=== PATIENT | male | born 1965 | race Caucasian/White ===

== ENCOUNTER 2025-06-17 06:00 | Inpatient (IN) | payer MEDICAID, OTHER ==
[~2025-06-17] VITALS: Ht 177.8 cm; Wt 76.6 kg
--- NOTE | 2025-06-17 06:13 | ED.PDOC ---
SOB-HPI HPI Comments 59 year old male PMHx CHF, HTN, HLD, gallstones, Hepatitis C, kidney disease, presents to the ED via EMS with a chief compliant of shortness of breath onset today (06/17/25) around 04:00. Per EMS, patient was laying down, noticed shortness of breath was worsening called 911, upon EMS arrival O2 sat was 87% on RA, placed on 6L O2 sat improved to 98%, on 2L home O2. Patient states he noticed shortness of breath worsened with laying down, is also experiencing abdominal pain, periumbilical region, as well as nausea, currently rates pain 3/10. Was discharged from [facility] on 06/13/25, was diagnosed with gallstones. Denies fever, chills, vomiting, diarrhea, headache, dizziness, chest pain, blurred vision, numbness/tingling. No other symptoms or modifying factors present at this time. Time Seen by MD: 06:05 Reviewed notes: Medications, Allergies Information Source: Patient, Emergency Med Personnel Mode of Arrival: EMS Severity: Moderate Timing: Hours Duration: Since onset Context: At Rest PE Risk Factors: None History of: CHF Prehospital treatment: 12 Lead EKG Modifying Factors: Nothing Past Medical History PAST MEDICAL HISTORY: CHF, CKF, Gallstones, High Lipids, HTN Past Medical History (Other): Hep C Surgical History (Other): RT knee surgery Family History Family History: Family hx of heart jenelle Social History Smoker: Non-Smoker Alcohol: Denies ETOH Use Drugs: Marijuana Lives In: Home Constitutional: denies: chills, diaphoresis, fatigue, fever, malaise, sweats, weakness, others EENTM: denies: blurred vision, double vision, ear bleeding, ear discharge, ear drainage, ear pain, ear ringing, eye pain, eye redness, hearing loss, mouth pain, mouth swelling, nasal discharge, nose bleeding, nose congestion, nose p ain, photophobia, tearing, throat pain, throat swelling, voice changes, others Respiratory: reports: shortness of breath; denies: cough, hemoptysis, orthopnea, SOB at rest, SOB with excertion, stridor, wheezing, others Cardiovascular: denies: chest pain, dizzy spells, diaphoresis, Dyspnea on exertion, edema, irregular heart beat, left arm pain, lightheadedness, palpitations, PND, syncope, others Gastrointestinal: reports: abdominal pain, nausea; denies: abdomen distended, blood streaked bowels, constipated, diarrhea, dysphagia, difficulty swallowing, hematemesis, melena, poor appetite, poor fluid intake, rectal bleeding, rectal pain, vomiting, others Genitourinary: denies: burning, dysuria, flank pain, frequency, hematuria, incontinence, penile discharge, penile sore, pain, testicle pain, testicle swelling, urgency, others Neurological: denies: dizziness, fainting, headache, left sided numbness, left sided weakness, numbness, paresthesia, pre-existing deficit, right sided numbness, right sided weakness, seizure, speech problems, tingling, tremors, weakness, others Musculoskeletal: denies: back pain, gout, joint pain, joint swelling, muscle pain, muscle stiffness, neck pain, others Integumetry: denies: bruises, change in color, change in hair/nails, dryness, laceration, lesions, lumps, rash, wounds, others Allergic/Immunocompromised: denies: Difficulty Healing, Frequent Infections, Hives, Itching, others Hematologic/Lymphatic: denies: anemia, blood clots, easy bleeding, easy bruising, swollen glands, others Endocrine: denies: excessive hunger, excessive sweating, excessive thirst, excessive urination, flushing, intolerance to cold, intolerance to heat, unexplained weight gain, unexplained weight loss, others Psychiatric: denies: anxiety, bipolar disorder, depression, hopeless, panic disorder, schizophrenia, sleepless, suicidal, others All Other Systems: Reviewed and Negative Physical Exam General Appearance: Moderate Distress HEENT: Normal ENT Inspection, Pharynx Normal, TMs Normal Neck: Full Range of Motion, Non-Tender, Normal, Normal Inspection Respiratory: Decreased Breath Sounds, Rales, Respiratory Distress Cardiovascular: No Edema, No JVD, No Murmur, No Gallop, Normal Peripheral Pulses, Regular Rate/Rhythm Breast Exam: Deferred Gastrointestinal: No Organomegaly, Non Tender, No Pulsatile Mass, Normal Bowel Sounds, Soft Genitalia: Deferred Pelvic: Deferred Rectal: Deferred Extremities: No calf tenderness, Normal capillary refill, Normal inspection, Normal range of motion, Non-tender, No pedal edema Musculoskeletal : Apperance: Normal Neurologic: Alert, assistant attorney general II-XII nml as Tested, Motor Weakness, Normal Affect, Normal Mood, No Sensory Deficits Cerebellar Function: Normal Reflexes: Normal Skin: Dry, Normal Color, Warm Lymphatic: No Adenopathy EKG EKG : Pulse Rate (adult): 88 [place]: Normal Block: None Hypertrophy: LAE Was a procedure done? Was a procedure done?: No Differential Dx Differential Diagnosis: Asthma, Bronchitis, CHF, COPD, Pneumonia X-Ray, Labs, Meds, VS Vital Signs Date Time Temp Pulse Resp B/P (MAP) Pulse Ox O2 Delivery O2 Flow Rate FiO2 06/17/25 07:09 80 06/17/25 06:40 86 16 94 Nasal Cannula* 2 28 06/17/25 06:38 97.8 86 16 102/76 (85) 94 97.8 06/17/25 06:18 88 06/17/25 06:13 88 06/17/25 06:00 94.3 98 24 108/81 98 94.3 Lab Test 06/17/25 07:26 06/17/25 06:26 Range/Units Troponin I High Sensitivity Pending 507 *H </=54 ng/L White Blood Count 8.1 4.4-10.8 10^3/uL Red Blood Count 5.77 4.5-5.90 10^6/uL Hemoglobin 15.4 13.5-17.5 g/dL Hematocrit 47.4 41.0-53.0 % Mean Corpuscular Volume 82.2 80.0-100.0 fL Mean Corpuscular Hemoglobin 26.8 L 28.0-32.0 pg Mean Corpuscular Hemoglobin Concent 32.6 32.0-36.0 g/dL Red Cell Distribution Width 17.9 H 11.8-14.3 % Platelet Count 169 140-450 10^3/uL Mean Platelet Volume 8.1 6.9-10.8 fL Neutrophils (%) (Auto) 64.3 37.0-80.0 % Lymphocytes (%) (Auto) 23.4 10.0-50.0 % Monocytes (%) (Auto) 9.9 0.0-12.0 % Eosinophils (%) (Auto) 1.2 0.0-7.0 % Basophils (%) (Auto) 1.2 0.0-2.0 % Neutrophils # (Auto) 5.2 1.6-8.6 10 ^3/uL Lymphocytes # (Auto) 1.9 0.4-5.4 10 ^3/uL Monocytes # (Auto) 0.8 0-1.3 10 ^3/uL Eosinophils # (Auto) 0.1 0-0.8 10 ^3/uL Basophils # (Auto) 0.1 0-0.2 10 ^3/uL Nucleated Red Blood Cells 0.2 % Sodium Level 138 136-145 mmol/L Potassium Level 4.1 3.5-5.1 mmol/L Chloride Level 103 98-107 mmol/L Carbon Dioxide Level 22 20-31 mmol/L Anion Gap 13 5-15 Blood Urea Nitrogen 33 H 9-23 mg/dL Creatinine 1.93 H 0.700-1.30 mg/dL Glomerular Filtration Rate Calc 39 >90 mL/min BUN/Creatinine Ratio 17.1 10.0-20.0 Serum Glucose 106 74-106 mg/dL Calcium Level 8.7 8.7-10.4 mg/dL B-Type Natriuretic Peptide 2736.29 0-100 pg/mL IV Hep-Lock was established The patient's CBC is within normal limits. The chest x-ray is interpreted by myself shows cardiomegaly with some cephalization an infiltrates consistent with acute on chronic diastolic heart failure. The BNP came back at 2736.29. This elevated BNP is consistent with the patient's CHF. The troponin level came back at 507. We did review the 2nd EKG which had no changes and there were no signs of any ST-elevation consistent with a myocardial infarction. We feel that this troponin level is secondary to the acute on chronic diastolic heart failure. A cardiology consult will also be obtained. The patient was given Lasix 40 mg IV push based on the patient's chest x-ray findings. The patient's blood pressure remains normotensive. The patient will be continued on the oxygen nasal cannula. Our plan is to admit this patient to the telemetry bed FINDINGS: Cardiomegaly . Left paemaker . The heart and mediastinal contours are grossly unremarkable. There is no evidence of pleural disease. The lungs are clear. The bony structures of the chest are intact without fracture. IMPRESSION: 1. Cardiomegaly with CHF. The patient was given Lovenox 30 mg IV push. The chemistry panel is within normal limits except the BUN is 33 and the creatinine is 1.93 We are consulting with Dr. Oglesby who on this patient The patient is going to be admitted at this time. The patient's cardiac scale is greater than seven which is also consistent with our decision to admit this patient. Critical care time was justified because of consultation with the specialist, interpretation of labs and decision-making, bedside management of this patient Images Reviewed?: Images reviewed and evaluated by me Time of 1ST Reevaluation: 06:35 Reevaluation 1ST: Unchanged Patient Education/Counseling: Diagnosis, Treatment, Prognosis Family Education/Counseling: No Family Present SEPSIS Sepsis Screen Physician Orders Urinalysis (06/17/25 06:07) Chest Portable (06/17/25 06:07) Heplock Iv (06/17/25 06:07) Pulse Oximetry (06/17/25 06:07) Oxygen (06/17/25 06:07) Transportation Project Manager (06/17/25 06:07) Blood Pressure (06/17/25 06:07) Troponin-I Hs (06/17/25 07:07) Troponin-I Hs (06/17/25 09:07) Electrocardigram (06/17/25 09:07) * Cardiology Consult (06/17/25 07:30) Enoxaparin Sodium (Lovenox) (06/17/25 07:45) Vital Signs Date Time Temp Pulse Resp B/P (MAP) Pulse Ox O2 Delivery O2 Flow Rate FiO2 06/17/25 07:09 80 06/17/25 06:40 86 16 94 Nasal Cannula* 2 28 06/17/25 06:38 97.8 86 16 102/76 (85) 94 97.8 06/17/25 06:18 88 06/17/25 06:13 88 06/17/25 06:00 94.3 98 24 108/81 98 94.3 Laboratory Tests Test 06/17/25 06:26 White Blood Count 8.1 10^3/uL (4.4-10.8) Departure 1 Departure Time of Disposition: 07:44 Impression: Primary Impression: Acute on chronic diastolic heart failure Additional Impressions: CKD (chronic kidney disease) Qualified Codes: N18.9 - Chronic kidney disease, unspecified Elevated troponin Disposition: ADMITTED INPATIENT Admit to: Tele Condition: Fair Critical Care Note Critical Care Time?: Yes (55 min-critical care time only) Stability Stability form required: Yes Unstable for transfer: Telemetry monitoring (Telemetry monitoring required), ED Physician Assesment (Clinical assesment) Heart Score Heart Score: Heart Score Response (Comments) Value History Moderate Suspicious 1 EKG Repolarization Disturb 1 Age 45-64 1 Risk Factors >3 or Hx ASHD 2 Troponin >3 x's Normal limit 2 Total 7 I personally scribed for JOSIAS ALONZO MD ([email or web address]) on 06/17/25 at 06:13. Electronically submitted by Amparo Chung ([email or web address]). I personally scribed for JOSIAS ALONZO MD ([email or web address]) on 06/17/25 at 06:18. Electronically submitted by Amparo Chung ([email or web address]). I personally scribed for JOSIAS ALONZO MD ([email or web address]) on 06/17/25 at 07:34. Electronically submitted by Amparo Chung ([email or web address]). JOSIAS ALONZO MD Jun 17, 2025 06:13
--- NOTE | 2025-06-17 06:15 | ECG ---
[facility] Test Date: 2025-06-17 Test Time: 06:13:31 Pat Name: AARON GARZA Department: [facility] ED Patient ID: [id number] Room: [address] [place] [address] Gender: M Antenna Rigger: KRAIG : 1965 Requested By: JOSIAS ALONZO Order Number: [id number] Reading MD: Tristen Puckett Measurements Intervals [place] Rate: 88 P: 57 [place]: 212 QRS: -53 QRSD: 148 T: 119 QT: 418 QTc: 506 Interpretive Statements Sinus rhythm Atrial premature complexes in couplets Prolonged [place] interval Probable left atrial enlargement Left bundle branch block Electronically Signed On 06-22-2025 20:24:47 PDT by Tristen Puckett Please click the below link to view image of tracing.
[2025-06-17 06:40] VITALS: PULSE 86; RESP 16; O2SAT 94
[2025-06-17 06:43] LABS: Hematocrit 47.4 % (41.0-53.0); Hemoglobin 15.4 g/dL (13.5-17.5); Mean Corpuscular Hemoglobin 26.8 pg (28.0-32.0); Mean Corpuscular Volume 82.2 fL (80.0-100.0); Nucleated Red Blood Cells % 0.2 %
--- NOTE | 2025-06-17 07:11 | ECG ---
[facility] Test Date: 2025-06-17 Test Time: 07:09:28 Pat Name: AARON GARZA Department: [facility] ED Patient ID: [id number] Room: [address] [place] [address] Gender: M Java Analyst: VINICIUS : 1965 Requested By: JOSIAS ALONZO Order Number: [id number] Reading MD: Tristen Puckett Measurements Intervals [place] Rate: 80 P: 58 CA: 231 QRS: -51 QRSD: 148 T: 117 QT: 430 QTc: 497 Interpretive Statements Sinus rhythm Ventricular premature complex Prolonged [place] interval Probable left atrial enlargement Left bundle branch block Electronically Signed On 06-22-2025 20:24:48 PDT by Tristen Puckett Please click the below link to view image of tracing.
[2025-06-17 07:31] LABS: Chloride 103 mmol/L (98-107); Potassium 4.1 mmol/L (3.5-5.1); Sodium 138 mmol/L (136-145)
[2025-06-17 07:32] LABS: Anion Gap 13 (5-15); Carbon Dioxide 22 mmol/L (20-31)
--- NOTE | 2025-06-17 07:32 | DVH ---
INDICATION: sob TECHNIQUE: Frontal view of the chest. COMPARISON: None FINDINGS: Cardiomegaly . Left paemaker . The heart and mediastinal contours are grossly unremarkable. There is no evidence of pleural disease. The lungs are clear. The bony structures of the chest are intact without fracture. IMPRESSION: 1. Cardiomegaly with CHF.
[2025-06-17 07:35] LABS: Calcium 8.7 mg/dL (8.7-10.4)
[2025-06-17 07:37] LABS: BUN/Creatinine Ratio 17.1 (10.0-20.0)
[2025-06-17 07:40] VITALS: PULSE 96; RESP 19; O2SAT 98
[2025-06-17 07:40] LABS: Blood Urea Nitrogen 33 mg/dL (9-23); Glucose 106 mg/dL (74-106)
[2025-06-17] MEDS: FUROSEMIDE 40 MG/4 ML VIAL IV ONE (09:25)
[2025-06-17] MEDS ORDERED: NITROGLYCERIN 0.4 MG SL TAB SL PRN (09:30)
[2025-06-17] MEDS ORDERED: EMPA1TAB PO (09:36)
[2025-06-17] MEDS ORDERED: ATOR10TA PO (09:36)
[2025-06-17] MEDS ORDERED: LISI2.5T47 PO (09:36)
[2025-06-17] MEDS ORDERED: SENN-105 PO (09:36)
[2025-06-17] MEDS ORDERED: FURO20TA4 PO (09:36)
[2025-06-17] MEDS ORDERED: ASPI-628 PO (09:36)
[2025-06-17] MEDS ORDERED: CARV-214 OR (09:36)
[2025-06-17] MEDS: ENOXAPARIN SOD 30 MG/0.3 ML SYRINGE IV ONE (09:47)
[2025-06-17] MEDS: CARVEDILOL 3.125 MG TAB PO SCH (10:00)
[2025-06-17] MEDS: SENNA 8.6 MG TAB PO SCH (10:00)
[2025-06-17] MEDS ORDERED: LISINOPRIL 5 MG TAB PO SCH (10:00)
[2025-06-17] MEDS: EMPAGLIFLOZIN 10 MG TAB PO SCH (10:00)
[2025-06-17] MEDS: ASPirin-EC 81 mg tab PO SCH (10:00)
[2025-06-17] MEDS ORDERED: MORPHINE SULFATE 4 MG/ML SYR/VIAL IV PRN (10:00)
--- NOTE | 2025-06-17 10:24 | DVHHP2 ---
History of Present Illness Reason for Visit: Shortness of breath and abdominal pain History of Present Illness Salvador You is a 59-year-old male with past medical history of CHF, hypertension, hyperlipidemia, Hep C, and mitral clip & AICD in December 2024, who came to the hospital for shortness of breath and abdominal pain. Patient states his abdominal pain is in his epigastric region, and that he was recently discharged from [place] and told he has gallstones. He states the shortness of breath came on suddenly early this morning prompting him to call EMS. Cardiovascular: CHF, HTN, hyperipidemia, Other (Mitral clip and AICD December 2024) Hepatobiliary: Hep A/B/C (Hep C) Past Surgical History: Other (right knee, Mitral clip and AICD December 2024) Smoke: No ALCOHOL: none Drugs: None Lives: with Family Domestic Violence: Neg Review of Systems Constitutional: No: Fever, Chills, Sweats, Weakness, Malaise, Other Eyes: No: Pain, Vision change, Conjunctivae inflammation, Eyelid inflammation, Other, Redness ENT: No: Ear pain, Ear discharge, Nose pain, Nose discharge, Nose congestion, Mouth pain, Mouth swelling, Throat pain, Throat swelling, Other Respiratory: Shortness of breath, SOB with excertion, Wheezing; No: Cough, Dry, Hemoptysis, Pleuritic Pain, Sputum, Wheezing, Other Cardiovascular: No: Chest Pain, Palpitations, Orthopnea, Paroxysmal Noc. Dyspnea, Edema, Lt Headedness, Other Gastrointestinal: Abdominal Pain (Epigastric pain); No: Nausea, Vomiting, Diarrhea, Constipation, Melena, Hematochezia, Other Genitourinary: No Dysuria, No Frequency, No Incontinence, No Hematuria, No Retention, No Other Musculoskeletal: No: other, neck pain, shoulder pain, arm pain, back pain, hand pain, leg pain, foot pain Skin: No: Rash, Lesions, Jaundice, Bruising, Other Neurological: No: Weakness, Numbness, Incoordination, Change in speech, Confusion, Seizures, Other Allergies: Coded Allergies: Ampicillin (Verified Allergy, Severe, 06/17/25) Medications Current Medications Medications Dose Ordered Sig/Justyna Route Start Time Stop Time Status Last Admin Dose Admin Sodium Chloride 10 ml Q8HR IV 06/17/25 14:00 Acetaminophen/ Hydrocodone Bitart 1 tab Q4HP PRN PO 06/17/25 09:30 Ondansetron HCl 4 mg Q4HP PRN IV 06/17/25 09:30 Docusate Sodium 100 mg BIDPRN PRN PO 06/17/25 09:30 Acetaminophen 650 mg Q6HP PRN PO 06/17/25 09:30 Nitroglycerin 0.4 mg Q5MINP PRN SL 06/17/25 09:30 Morphine Sulfate 2 mg Q30M PRN IV 06/17/25 10:00 Aspirin 81 mg DAILY PO 06/17/25 10:00 UNV Carvedilol 3.125 mg BID PO 06/17/25 10:00 UNV Empaglifozin 10 mg DAILY PO 06/17/25 10:00 UNV Sennosides 17.2 mg DAILY PO 06/17/25 10:00 UNV Patient Own Medication 1 tab QPM PO 06/17/25 18:00 UNV Patient Own Medication 1 tab DAILY PO 06/17/25 10:00 UNV Exam Vital Signs Vital Signs Date Time Temp Pulse Resp B/P (MAP) Pulse Ox O2 Delivery O2 Flow Rate FiO2 06/17/25 09:32 91 06/17/25 09:25 106/79 06/17/25 06:40 16 94 Nasal Cannula* 2 28 06/17/25 06:38 97.8 97.8 General Appearance: Alert, Oriented X3, Cooperative, mild distress HEENT: Atraumatic, PERRLA Respiratory: Clear to auscultation, Normal air movement Cardiovascular: Regular rate, Normal S1, Normal S2, No murmurs, Gallops Abdominal: Normal bowel sounds, Soft, Other (C/O epigastric tenderness) Extremities: No clubbing, No cyanosis, No edema, Normal pulses, No tenderness/swelling Skin: No rashes, No breakdown, No significant lesion Neuro: Normal gait, Normal speech, Strength at 5/5 X4 ext Psych/Mental Status: Mental status NL, Mood NL Labs/Xrays Labs Test 06/17/25 09:25 06/17/25 06:26 Range/Units White Blood Count 8.1 4.4-10.8 10^3/uL Red Blood Count 5.77 4.5-5.90 10^6/uL Hemoglobin 15.4 13.5-17.5 g/dL Hematocrit 47.4 41.0-53.0 % Mean Corpuscular Volume 82.2 80.0-100.0 fL Mean Corpuscular Hemoglobin 26.8 L 28.0-32.0 pg Mean Corpuscular Hemoglobin Concent 32.6 32.0-36.0 g/dL Red Cell Distribution Width 17.9 H 11.8-14.3 % Platelet Count 169 140-450 10^3/uL Mean Platelet Volume 8.1 6.9-10.8 fL Neutrophils (%) (Auto) 64.3 37.0-80.0 % Lymphocytes (%) (Auto) 23.4 10.0-50.0 % Monocytes (%) (Auto) 9.9 0.0-12.0 % Eosinophils (%) (Auto) 1.2 0.0-7.0 % Basophils (%) (Auto) 1.2 0.0-2.0 % Neutrophils # (Auto) 5.2 1.6-8.6 10 ^3/uL Lymphocytes # (Auto) 1.9 0.4-5.4 10 ^3/uL Monocytes # (Auto) 0.8 0-1.3 10 ^3/uL Eosinophils # (Auto) 0.1 0-0.8 10 ^3/uL Basophils # (Auto) 0.1 0-0.2 10 ^3/uL Nucleated Red Blood Cells 0.2 % Sodium Level 138 136-145 mmol/L Potassium Level 4.1 3.5-5.1 mmol/L Chloride Level 103 98-107 mmol/L Carbon Dioxide Level 22 20-31 mmol/L Anion Gap 13 5-15 Blood Urea Nitrogen 33 H 9-23 mg/dL Creatinine 1.93 H 0.700-1.30 mg/dL Glomerular Filtration Rate Calc 39 >90 mL/min BUN/Creatinine Ratio 17.1 10.0-20.0 Serum Glucose 106 74-106 mg/dL Calcium Level 8.7 8.7-10.4 mg/dL B-Type Natriuretic Peptide 2736.29 0-100 pg/mL TECHNIQUE: Frontal view of the chest. FINDINGS: Cardiomegaly . Left pacemaker . The heart and mediastinal contours are grossly unremarkable. There is no evidence of pleural disease. The lungs are clear. The bony structures of the chest are intact without fracture. IMPRESSION: 1. Cardiomegaly with CHF. SEPSIS Sepsis Screen Date sepsis recognized/suspect: Jun 17, 2025 Time Sepsis recognized/suspect: 0642 Recent Procedure: No On Antibiotic Therapy: No Respiratory Rate >20: No Heart Rate >90: No Temp<36 C (96.8 F) or >38.3 C: No SBP <90 or MAP <65 mmHG: No New Acute Mental Status Change: No Is the patient on CPAP, BIPAP,: No Physician Orders Urinalysis (06/17/25 06:07) Chest Portable (06/17/25 06:07) Heplock Iv (06/17/25 06:07) Pulse Oximetry (06/17/25 06:07) Oxygen (06/17/25 06:07) Aircraft Sheet Metal Mechanic (06/17/25 06:07) Blood Pressure (06/17/25 06:07) Troponin-I Hs (06/17/25 09:07) Electrocardigram (06/17/25 09:07) *Consult Dr.Mukeshchandra Ramires (06/17/25 08:36) Admit (06/17/25:23) Code Status (06/17/25:) Sodium Chloride Lock (Saline Lock Ns) (06/17/25 14:00) Hydrocodone-Acet 5/325mg Tab ([place] 5/32 (06/17/25 09:30) Ondansetron Hcl (Zofran) (06/17/25 09:30) Docusate Sodium Capsule (Colace Capsule) (06/17/25 09:30) Complete Blood Count (06/18/25 04:00) Comprehensive Metabolic Panel (06/18/25 04:00) Condition: Serious (06/17/25:23) Acetaminophen Tablet (Tylenol Tablet) (06/17/25 09:30) Nitroglycerin Sublingual (Ntrostat Subli (06/17/25 09:30) Stat Ekg For Chest Pain (06/17/25:) Notify Of Changes From Base (06/17/25:23) Oil Field Worker For 24 Hours (06/17/25:23) Emergency Dysrhythmia Protocol (06/17/25:) Rhythm Strips Once Every Shift (06/17/25:) Oxygen By Nasal Cannula (10/6/25 09:23) Aspirin Enteric Coated Tablet (Ecotrin E (06/17/25 10:00) Carvedilol Tablet (Coreg Tablet) (06/17/25 10:00) Empagliflozin (Jardiance) (06/17/25 10:00) Senna Pod Tablet (Senokot Tablet) (06/17/25 10:00) (Nf) Atorvastatin Calcium (Lipitor) (06/17/25 18:00) (Nf) Lisinopril (06/17/25 10:00) Morphine Sulfate Injection (06/17/25 10:00) Vital Signs Date Time Temp Pulse Resp B/P (MAP) Pulse Ox O2 Delivery O2 Flow Rate FiO2 06/17/25 09:32 91 06/17/25 09:25 106/79 06/17/25 07:09 80 06/17/25 06:40 86 16 94 Nasal Cannula* 2 28 06/17/25 06:38 97.8 86 16 102/76 (85) 94 97.8 06/17/25 06:18 88 06/17/25 06:13 88 06/17/25 06:00 94.3 98 24 108/81 98 94.3 Laboratory Tests Test 06/17/25 06:26 White Blood Count 8.1 10^3/uL (4.4-10.8) Medications Medications Dose Ordered Sig/Justyna Route Start Time Stop Time Status Last Admin Dose Admin Enoxaparin Sodium 30 mg ONCE ONCE IV 06/17/25 07:45 06/17/25 07:46 DC 06/17/25 09:47 30 MG Assessment/Plan Assessment/Plan Assessment: Elevated troponin, Gallstones, cardiomegaly, CHF, Hypertension, Hyperlipidemia, Plan: Admit to Tele, Cardiology consult, Gallbladder ultrasound, IV Lasix, Antiemetics, Home medications reconciled, Plan discussed with: Patient My Orders Orders - NEEL MELENDEZ Procedure Category Date Status Time Admit ADMIT 06/17/25 Transmitted 09:23 Code Status CODE 06/17/25 Transmitted 09:23 Sodium Chloride Lock PHA 06/17/25 In Process (Saline Lock Ns) 14:00 Hydrocodone-Acet PHA 06/17/25 In Process 5/325mg Tab ([place] 09:30 Ondansetron Hcl PHA 06/17/25 In Process (Zofran) 09:30 Docusate Sodium PHA 06/17/25 In Process Capsule (Colace 09:30 Complete Blood Count LAB 06/18/25 Verified 04:00 Comprehensive LAB 06/18/25 Verified Metabolic Panel 04:00 Condition: Serious RANI 06/17/25 In Process 09:23 Acetaminophen Tablet PHA 06/17/25 In Process (Tylenol Tablet) 09:30 Nitroglycerin PHA 06/17/25 In Process Sublingual (Ntrostat 09:30 Stat Ekg For Chest RANI 06/17/25 In Process Pain 09:23 Notify Of Changes RANI 06/17/25 In Process From Base 09:23 Oil Field Worker For RANI 06/17/25 In Process 24 Hours 09:23 Emergency Dysrhythmia RANI 06/17/25 In Process Protocol 09:23 Rhythm Strips Once [facility] 06/17/25 In Process Every Shift 09:23 Oxygen By Nasal RT 06/17/25 Transmitted Cannula 09:23 Aspirin Enteric PHA 06/17/25 Logged Coated Tablet 10:00 Carvedilol Tablet PHA 06/17/25 Logged (Coreg Tablet) 10:00 Empagliflozin PHA 06/17/25 Logged (Jardiance) 10:00 Senna Pod Tablet PHA 06/17/25 Logged (Senokot Tablet) 10:00 (Nf) Atorvastatin PHA 06/17/25 Logged Calcium (Lipitor) 18:00 (Nf) Lisinopril PHA 06/17/25 Logged 10:00 Morphine Sulfate PHA 06/17/25 In Process Injection 10:00 Date of Service: Jun 17, 2025 Billing Provider: NEEL MELENDEZ Common Visit Codes: [id number] INP/OBS CARE (HIGH) NEEL MELENDEZ Jun 17, 2025 10:24
--- NOTE | 2025-06-17 11:12 | DVH ---
INDICATION: abdominal pain TECHNIQUE: Multiple real-time sonographic images were obtained of the right upper quadrant. COMPARISON: None FINDINGS: The liver demonstrates homogenous echotexture without focal mass lesions. The liver measure s 18 cm. There is no intrahepatic or extrahepatic ductal dilatation. Common bile duct not visualize d. The gallbladder is without evidence of stone or sludge. The gallbladder wall measures 0.5mm and is thickened. The right kidney measures 10 cm. The right kidney is normal in contour, size, and shape. The echog enicity is normal. There is no hydronephrosis. The pancreas is not well visualized due to overlying bowel gas. IMPRESSION: Gallbladder wall thickening. Please correlate with Alk Phos, bilirubin, blood culture, fever, WBC for primary cholecystitis, versu s secondary wall thickening with lipase for pancreatitis, AST/ALT for hepatitis/cirrhosis, BUN/Cr for renal failure, and BNP/albumin for CHF/low protein state.
[2025-06-17] MEDS: SODIUM CHLOR 0.9% PF (SALINE LOCK) 10ML VIAL/SYR IV SCH (14:00)
[2025-06-17 14:08] LABS: Urine Protein, UAD TRACE (Negative)
[2025-06-17 14:24] LABS: Amphetamine Screen, Urine Neg (NEGATIVE)
[2025-06-17 14:27] LABS: Barbiturate Scree,Urine Neg (NEGATIVE); Benzodiazephine Screen, Urine Neg (NEGATIVE); Cannabinoid Screen, Urine Neg (NEGATIVE); Cocaine Screen, Urine Neg (NEGATIVE); Opiate Scree,Urine Neg (NEGATIVE); Phencyclidine Screen, Urine Neg (NEGATIVE)
[2025-06-17 18:53] LABS: Albumin 3.6 g/dL (3.2-4.8); Alkaline Phosphatase 107 U/L (46-116); Anion Gap 11 (5-15); BUN/Creatinine Ratio 21.8 (10.0-20.0); Carbon Dioxide 26 mmol/L (20-31); Chloride 104 mmol/L (98-107); Glucose 103 mg/dL (74-106); Potassium 4.6 mmol/L (3.5-5.1); Sodium 141 mmol/L (136-145); Total Protein 5.9 g/dL (5.7-8.2)
[2025-06-17 19:03] LABS: Alanine Aminotransferase 42 U/L (7-40); Bilirubin, Total 1.9 mg/dL (0.2-1.0); Blood Urea Nitrogen 41 mg/dL (9-23); Calcium 8.3 mg/dL (8.7-10.4)
[2025-06-17 19:30] VITALS: PULSE 95; RESP 22
[2025-06-17] MEDS: ATORVASTATIN 20 MG TAB PO SCH (21:45)
[2025-06-17] MEDS: HYDROcodone-ACET 5/325MG TAB PO PRN (21:46)
[2025-06-17 22:58] VITALS: BP 104/77; PULSE 74; PULSE 94; RESP 17; RESP 18; TEMP 97.5; O2SAT 97
--- NOTE | 2025-06-17 22:58 | DVHINCON2 ---
Date of service: Jun 17, 2025 Referring Physician Gauri Reason for Consultation Elevated troponin History of Present Illness This is a 59 year old male with a PMH of CHF, HTN, HLD, gallstones, Hepatitis C, kidney disease brought in by EMS with compliant of shortness of breath onset today around 04:00. Per EMS, patient was laying down, noticed shortness of breath was worsening called 911. Upon EMS arrival O2 sat was 87% on RA, placed on 6L O2 sat improved to 98%, on 2L home O2. Patient states he noticed shortness of breath worsened with laying down, is also experiencing abdominal pain, periumbilical region, as well as nausea, currently rates pain 3/10. The patient was discharged from [facility] on 06/13/25, was diagnosed with gallstones. EKG is NSR at 88. BNP 2736.29, troponin 507, BUN 433, Order Planner 1.93. 2nd EKG which had no changes and there were no signs of any ST-elevation. Chest x-ray shows cardiomegaly with CHF. Gallbladder US shows gallbladder wall thickening. Patient was admitted to the hospital. I am asked to consult on this patient. Allergies: Coded Allergies: Ampicillin (Verified Allergy, Severe, 06/17/25) Home Meds Reported Medications Lisinopril (Lisinopril) 2.5 Mg Tab, 1 TAB PO DAILY, #30 TAB 5 Refills 06/17/25 Empagliflozin (Jardiance) 10 Mg Tab, 10 MG PO DAILY, TAB 06/17/25 Carvedilol (COREG) 3.125 Mg Tab, 3.125 MG OR BID, TAB 06/17/25 Atorvastatin Calcium (Lipitor) 10 Mg Tab, 1 TAB PO QPM, #90 TAB 1 Refill 06/17/25 Aspirin (Aspirin Adult Low Dose) 81 Mg Tab, 1 TAB PO DAILY 06/17/25 Senna (Senna) 8.6 Mg Tab, 2 TAB PO DAILY 06/17/25 Furosemide (Furosemide) 20 Mg Tab, 1 TAB PO DAILY 06/17/25 Current Medications Current Medications Medications (Trade) Dose Ordered Sig/Justyna Route PRN Reason Start Time Stop Time Status Last Admin Sodium Chloride (Saline Lock Ns) 10 ml Q8HR IV 06/17/25 14:00 06/17/25 21:45 Acetaminophen/ Hydrocodone Bitart ([place] 5/325MG Tab) 1 tab Q4HP PRN PO MODERATE PAIN (4-6 PAIN SCALE) 06/17/25 09:30 06/17/25 21:46 Ondansetron HCl (Zofran) 4 mg Q4HP PRN IV NAUSEA / VOMITING 06/17/25 09:30 Docusate Sodium (Colace Capsule) 100 mg BIDPRN PRN PO FOR CONSTIPATION 06/17/25 09:30 Acetaminophen (Tylenol Tablet) 650 mg Q6HP PRN PO PAIN SCALE 1-3 OR TEMP>100.4 06/17/25 09:30 Nitroglycerin (Ntrostat Sublingual) 0.4 mg Q5MINP PRN SL FOR CHEST PAIN 06/17/25 09:30 Morphine Sulfate 2 mg Q30M PRN IV FOR CHEST PAIN 06/17/25 10:00 Aspirin (Ecotrin Enteric Coated Tablet) 81 mg DAILY PO 06/17/25 10:00 06/17/25 10:00 Carvedilol (Coreg Tablet) 3.125 mg BID PO 06/17/25 10:00 06/17/25 21:46 Empaglifozin (Jardiance) 10 mg DAILY PO 06/17/25 10:00 Sennosides (Senokot Tablet) 17.2 mg DAILY PO 06/17/25 10:00 Atorvastatin Calcium (Lipitor) 10 mg HS PO 06/17/25 22:00 06/17/25 21:45 Lisinopril (Zestril Tablet) 2.5 mg DAILY PO 06/17/25 10:00 Hold Review of Systems Constitutional: denies: chills, diaphoresis, fatigue, fever, malaise, sweats, weakness, others EENTM: denies: blurred vision, double vision, ear bleeding, ear discharge, ear drainage, ear pain, ear ringing, eye pain, eye redness, hearing loss, mouth pain, mouth swelling, nasal discharge, nose bleeding, nose congestion, nose pain, photophobia, tearing, throat pain, throat swelling, voice changes, others Respiratory: reports: shortness of breath; denies: cough, hemoptysis, orthopnea, SOB at rest, SOB with excertion, stridor, wheezing, others Cardiovascular: denies: chest pain, dizzy spells, diaphoresis, Dyspnea on exertion, edema, irregular heart beat, left arm pain, lightheadedness, palpitations, PND, syncope, others Gastrointestinal: reports: abdominal pain, nausea; denies: abdomen distended, blood streaked bowels, constipated, diarrhea, dysphagia, difficulty swallowing, hematemesis, melena, poor appetite, poor fluid intake, rectal bleeding, rectal pain, vomiting, others Genitourinary: denies: burning, dysuria, flank pain, frequency, hematuria, incontinence, penile discharge, penile sore, pain, testicle pain, testicle swelling, urgency, others Neurological: denies: dizziness, fainting, headache, left sided numbness, left sided weakness, numbness, paresthesia, pre-existing deficit, right sided numbness, right sided weakness, seizure, speech problems, tingling, tremors, weakness, others Musculoskeletal: denies: back pain, gout, joint pain, joint swelling, muscle pain, muscle stiffness, neck pain, others Integumetry: denies: bruises, change in color, change in hair/nails, dryness, laceration, lesions, lumps, rash, wounds, others Allergic/Immunocompromised: denies: Difficulty Healing, Frequent Infections, Hives, Itching, others Hematologic/Lymphatic: denies: anemia, blood clots, easy bleeding, easy bruising, swollen glands, others Endocrine: denies: excessive hunger, excessive sweating, excessive thirst, excessive urination, flushing, intolerance to cold, intolerance to heat, unexplained weight gain, unexplained weight loss, others Psychiatric: denies: anxiety, bipolar disorder, depression, hopeless, panic disorder, schizophrenia, sleepless, suicidal, others All Other Systems: Reviewed and Negative Vital Signs Vital Signs Date Time Temp Pulse Resp B/P (MAP) Pulse Ox O2 Delivery O2 Flow Rate FiO2 06/17/25 21:46 96 107/80 06/17/25 19:30 98.3 22 98.3 06/17/25 19:30 Room Air* 0 21 06/17/25 19:06 95 Physical Exam GENERAL: Alert and oriented x 3. No acute distress. EYES: PERRL, EOMI. Anicteric. HENT: Moist mucous membranes. LUNGS: Clear to auscultation bilaterally. CARDIOVASCULAR: Regular rate and rhythm. ABDOMEN: Soft, non-tender and non-distended. EXTREMITIES: No edema. NEUROLOGIC: No focal neurological deficits. SKIN: Warm, dry. Labs/Diagnostic Data Labs Test 06/17/25 17:59 06/17/25 13:45 06/17/25 09:25 06/17/25 06:26 Range/Units Sodium Level 141 136-145 mmol/L Potassium Level 4.6 3.5-5.1 mmol/L Chloride Level 104 98-107 mmol/L Carbon Dioxide Level 26 20-31 mmol/L Anion Gap 11 5-15 Blood Urea Nitrogen 41 H 9-23 mg/dL Creatinine 1.88 H 0.700-1.30 mg/dL Glomerular Filtration Rate Calc 40 >90 mL/min BUN/Creatinine Ratio 21.8 H 10.0-20.0 Serum Glucose 103 74-106 mg/dL Calcium Level 8.3 L 8.7-10.4 mg/dL Total Bilirubin 1.9 H 0.2-1.0 mg/dL Aspartate Amino Transferase (AST) 39 13-40 U/L Alanine Aminotransferase (ALT) 42 H 7-40 U/L Alkaline Phosphatase 107 46-116 U/L Total Protein 5.9 5.7-8.2 g/dL Albumin 3.6 3.2-4.8 g/dL Urine Color Yellow Yellow Urine Clarity Clear Clear Urine pH 5.0 5.0-9.0 Urine Specific [place] 1.017 1.001-1.035 Urine Protein Trace H Negative Urine Ketones Negative Negative Urine Blood Negative Negative /uL Urine Nitrite Negative Negative Urine Bilirubin Negative Negative Urine Urobilinogen Normal Negative mg/dL Urine Leukocyte Esterase Negative Negative /uL Urine RBC 1 0 - 3 /hpf Urine Microscopic WBC < 1 0-3 /HPF Urine Squamous Epithelial Cells None seen <5 /hpf Urine Bacteria None seen None Seen /hpf Urine Glucose 4+ H Normal mg/dL Urine Opiates Screen Neg NEGATIVE Urine Fentanyl Screen Neg NEGATIVE Urine Barbiturates Screen Neg NEGATIVE Urine Phencyclidine Screen Neg NEGATIVE Urine Amphetamines Screen Neg NEGATIVE Urine Benzodiazepines Screen Neg NEGATIVE Urine Cocaine Screen Neg NEGATIVE Urine Cannabinoids Screen Neg NEGATIVE Troponin I High Sensitivity 457 *H </=54 ng/L White Blood Count 8.1 4.4-10.8 10^3/uL Red Blood Count 5.77 4.5-5.90 10^6/uL Hemoglobin 15.4 13.5-17.5 g/dL Hematocrit 47.4 41.0-53.0 % Mean Corpuscular Volume 82.2 80.0-100.0 fL Mean Corpuscular Hemoglobin 26.8 L 28.0-32.0 pg Mean Corpuscular Hemoglobin Concent 32.6 32.0-36.0 g/dL Red Cell Distribution Width 17.9 H 11.8-14.3 % Platelet Count 169 140-450 10^3/uL Mean Platelet Volume 8.1 6.9-10.8 fL Neutrophils (%) (Auto) 64.3 37.0-80.0 % Lymphocytes (%) (Auto) 23.4 10.0-50.0 % Monocytes (%) (Auto) 9.9 0.0-12.0 % Eosinophils (%) (Auto) 1.2 0.0-7.0 % Basophils (%) (Auto) 1.2 0.0-2.0 % Neutrophils # (Auto) 5.2 1.6-8.6 10 ^3/uL Lymphocytes # (Auto) 1.9 0.4-5.4 10 ^3/uL Monocytes # (Auto) 0.8 0-1.3 10 ^3/uL Eosinophils # (Auto) 0.1 0-0.8 10 ^3/uL Basophils # (Auto) 0.1 0-0.2 10 ^3/uL Nucleated Red Blood Cells 0.2 % B-Type Natriuretic Peptide 2736.29 0-100 pg/mL Assessment Elevated troponin. Gallstones. cardiomegaly. CHF. Hypertension. Hyperlipidemia. Plan/Recommendation I agree with your ongoing assessment and care of plan. Trend troponin. Morphine and [place] for pain management. Aspirin, Lipitor. Coreg. Nitro SL. Additional plan as per the hospital course. A total of 45 minutes was spent reviewing the patient record, examining the patient, making a diagnostic and therapeutic plan, discussing this plan with medical personnel, following up on diagnostic studies and following the patient for clinical stability excluding any and all procedures. At least 50% of this time was spent in direct, [id number] contact. Plan discussed with: Patient PRIETO,CISCO Bradley MD Jun 17, 2025 22:58
[2025-06-18] VITALS (8 sets, daily range): BP systolic 87–109; BP diastolic 67–85; PULSE 72–96; RESP 16–20; TEMP 97.5–98.6; O2SAT 94–98
[2025-06-18 06:15] LABS: Hematocrit 46.3 % (41.0-53.0); Hemoglobin 14.9 g/dL (13.5-17.5); Mean Corpuscular Hemoglobin 26.6 pg (28.0-32.0); Mean Corpuscular Volume 82.3 fL (80.0-100.0); Nucleated Red Blood Cells % 0.2 %
[2025-06-18 06:29] LABS: Alanine Aminotransferase 35 U/L (7-40); Alkaline Phosphatase 98 U/L (46-116); Carbon Dioxide 22 mmol/L (20-31); Chloride 106 mmol/L (98-107)
[2025-06-18 06:30] LABS: Albumin 3.5 g/dL (3.2-4.8); Anion Gap 10 (5-15); BUN/Creatinine Ratio 20.8 (10.0-20.0); Bilirubin, Total 1.8 mg/dL (0.2-1.0); Blood Urea Nitrogen 33 mg/dL (9-23); Calcium 8.1 mg/dL (8.7-10.4); Glucose 104 mg/dL (74-106); Potassium 4.6 mmol/L (3.5-5.1); Sodium 138 mmol/L (136-145); Total Protein 6.0 g/dL (5.7-8.2)
[2025-06-18] MEDS: ACETAMINOPHEN 325 MG TAB PO PRN (10:57)
--- NOTE | 2025-06-18 17:45 | DVHPN2 ---
Subjective Patient denies any chest pain shortness of breath. Changes from previous H/P or p: No Changes Eyes: No Pain, No Vision change, No Conjunctivae inflammation, No Eyelid inflammation, No Other, No Redness ENT: No Ear pain, No Ear discharge, No Nose pain, No Nose discharge, No Nose congestion, No Mouth pain, No Mouth swelling, No Throat pain, No Throat swelling, No Other Cardiovascular: No Chest Pain, No Palpitations, No Orthopnea, No Paroxysmal Noc. Dyspnea, No Edema, No Lt Headedness, No Other Respiratory: No Cough, No Dry; Shortness of breath, SOB with excertion, W heezing; No Hemoptysis, No Pleuritic Pain, No Sputum, No Other Gastrointestinal: No Nausea, No Vomiting; Abdominal Pain (Epigastric pain); No Diarrhea, No Constipation, No Melena, No Hematochezia, No Other Genitourinary: No Dysuria, No Frequency, No Incontinence, No Hematuria, No Retention, No Other Musculoskeletal: No other, No neck pain, No shoulder pain, No arm pain, No back pain, No hand pain, No leg pain, No foot pain Skin: No Rash, No Lesions, No Jaundice, No Bruising, No Other Objective Vitals Vital Signs Date Time Temp Pulse Resp B/P (MAP) Pulse Ox O2 Delivery O2 Flow Rate FiO2 06/18/25 17:13 97.5 91 18 109/85 (93) 98 97.5 06/18/25 08:00 Nasal Cannula* 3 32 Intake/Output Intake and Output 06/18/25 06:59 Intake Total 200 ml Output Total 0 ml Balance 200 ml Intake Oral 200 ml Output Urine Total 0 ml Exam HEENT pupils are reactive Neck is supple CV is S1-S2 regular rate and rhythm Has been bilateral diminished breath sounds at bases GI posterior bowel sound Extremity no edema 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 Medications Current Medications Medications Dose Ordered Sig/Justyna Route Start Time Stop Time Status Last Admin Dose Admin Sodium Chloride 10 ml Q8HR IV 06/17/25 14:00 06/18/25 14:00 10 ML Acetaminophen/ Hydrocodone Bitart 1 tab Q4HP PRN PO 06/17/25 09:30 06/17/25 21:46 1 TAB Ondansetron HCl 4 mg Q4HP PRN IV 06/17/25 09:30 Docusate Sodium 100 mg BIDPRN PRN PO 06/17/25 09:30 Acetaminophen 650 mg Q6HP PRN PO 06/17/25 09:30 06/18/25 10:57 650 MG Nitroglycerin 0.4 mg Q5MINP PRN SL 06/17/25 09:30 Morphine Sulfate 2 mg Q30M PRN IV 06/17/25 10:00 Aspirin 81 mg DAILY PO 06/17/25 10:00 06/18/25 11:00 81 MG Carvedilol 3.125 mg BID PO 06/17/25 10:00 06/17/25 21:46 3.125 MG Empaglifozin 10 mg DAILY PO 06/17/25 10:00 06/18/25 11:00 10 MG Sennosides 17.2 mg DAILY PO 06/17/25 10:00 Atorvastatin Calcium 10 mg HS PO 06/17/25 22:00 06/17/25 21:45 10 MG Lisinopril 2.5 mg DAILY PO 06/17/25 10:00 Hold Laboratory Results Laboratory Tests 06/18/25 05:32 Chemistry Test 06/17/25 17:59 06/18/25 05:32 Albumin 3.6 g/dL (3.2-4.8) 3.5 g/dL (3.2-4.8) Calcium Level 8.3 mg/dL (8.7-10.4) L 8.1 mg/dL (8.7-10.4) L Total Protein 5.9 g/dL (5.7-8.2) 6.0 g/dL (5.7-8.2) LFT Test 06/17/25 17:59 06/18/25 05:32 Alanine Aminotransferase (ALT) 42 U/L (7-40) H 35 U/L (7-40) Alkaline Phosphatase 107 U/L (46-116) 98 U/L (46-116) Aspartate Amino Transferase (AST) 39 U/L (13-40) 34 U/L (13-40) Total Bilirubin 1.9 mg/dL (0.2-1.0) H 1.8 mg/dL (0.2-1.0) H Urinalysis Test 06/17/25 13:45 Urine Color Yellow (Yellow) Urine Clarity Clear (Clear) Urine pH 5.0 (5.0-9.0) Urine Specific [place] 1.017 (1.001-1.035) Urine Protein Trace (Negative) H Urine Ketones Negative (Negative) Urine Blood Negative /uL (Negative) Urine Nitrite Negative (Negative) Urine Bilirubin Negative (Negative) Urine Urobilinogen Normal mg/dL (Negative) Urine Leukocyte Esterase Negative /uL (Negative) Urine RBC 1 /hpf (0 - 3) Urine Microscopic WBC < 1 /HPF (0-3) Urine Squamous Epithelial Cells None seen /hpf (<5) Urine Bacteria None seen /hpf (None Seen) Urine Glucose 4+ mg/dL (Normal) H Assessment/Plan Assessment/Plan 59-year-old male with a known history of congestive heart failure, hypertension, chronic respiratory failure on home O2, status post AICD, presented to the hospital with a shortness breath found to have 1. Acute on chronic congestive heart failure exacerbation unspecified 2. Elevated troponin suspect demand ischemia ruled out acute OR 3. Hypertension 4. Status post AICD 5. Chronic respiratory failure on home O2 6. Gallbladder wall thickening, tolerating diet -2D echo cardiology consultation, continue current medications n Plan discussed with: Patient Date of Service: Jun 18, 2025 Billing Provider: GENESIS BRUNNER MD Common Visit Codes: [id number] INP/OBS CARE(MOD) GENESIS BRUNNER MD Jun 18, 2025 17:45
--- NOTE | 2025-06-18 23:53 | DVHPN2 ---
Progress Note - Dictate Date Seen: Jun 18, 2025 Medical Necessity Reason Pt with a Central, PICC or Fol: No Subjective Patient was seen and evaluated in follow up. Patient is complaining of SOB. The patient is on 3 LPM NC. CBC is WNL. BUN 33, Cutter Operator Brick 1.59. Telemetry reviewed. vital signs Vital Sign Date Time Temp Pulse Resp B/P (MAP) Pulse Ox O2 Delivery O2 Flow Rate FiO2 06/18/25 21:33 89 118/86 06/18/25 17:13 97.5 18 98 97.5 06/18/25 08:00 Nasal Cannula* 3 32 Total Intake and Output 06/17/25 06/17/25 06/18/25 15:00 23:00 07:00 Intake Total 200 ml Output Total 0 ml Balance 200 ml medications Current Medications Medications Dose Ordered Sig/Justyna Route Start Time Stop Time Status Last Admin Dose Admin Sodium Chloride 10 ml Q8HR IV 06/17/25 14:00 06/18/25 21:29 10 ML Acetaminophen/ Hydrocodone Bitart 1 tab Q4HP PRN PO 06/17/25 09:30 06/18/25 21:34 1 TAB Ondansetron HCl 4 mg Q4HP PRN IV 06/17/25 09:30 Docusate Sodium 100 mg BIDPRN PRN PO 06/17/25 09:30 Acetaminophen 650 mg Q6HP PRN PO 06/17/25 09:30 06/18/25 10:57 650 MG Nitroglycerin 0.4 mg Q5MINP PRN SL 06/17/25 09:30 Morphine Sulfate 2 mg Q30M PRN IV 06/17/25 10:00 Aspirin 81 mg DAILY PO 06/17/25 10:00 06/18/25 11:00 81 MG Carvedilol 3.125 mg BID PO 06/17/25 10:00 06/18/25 21:33 3.125 MG Empaglifozin 10 mg DAILY PO 06/17/25 10:00 06/18/25 11:00 10 MG Sennosides 17.2 mg DAILY PO 06/17/25 10:00 Atorvastatin Calcium 10 mg HS PO 06/17/25 22:00 06/17/25 21:45 10 MG Lisinopril 2.5 mg DAILY PO 06/17/25 10:00 Hold objective GENERAL: Alert and oriented x 3. No acute distress. EYES: PERRL, EOMI. Anicteric. HENT: Moist mucous membranes. LUNGS: Clear to auscultation bilaterally. CARDIOVASCULAR: Regular rate and rhythm. ABDOMEN: Soft, non-tender and non-distended. EXTREMITIES: No edema. NEUROLOGIC: No focal neurological deficits. SKIN: Warm, dry. laboratory and microbiology Laboratory Tests 06/18/25 05:32 Test 06/18/25 05:32 Range/Units Serum Glucose 104 74-106 mg/dL Problem List Elevated troponin. Gallstones. cardiomegaly. CHF. Hypertension. Hyperlipidemia. Assessment/Plan Continued all current supportive medical care. Morphine and [place] for pain management. Aspirin, Lipitor. Coreg. Nitro SL. Additional plan as per the hospital course. Plan discussed with: Patient CISCO PRIETO MD Jun 18, 2025 23:53
[2025-06-19] MEDS: ONDANSETRON HCL 4 MG/2 ML VIAL IV PRN (03:18)
[2025-06-19 08:00] VITALS: PULSE 85
[2025-06-19 09:00] VITALS: BP 102/75; PULSE 76; RESP 18; TEMP 96.4; O2SAT 94
[2025-06-19 13:00] VITALS: BP 88/68; PULSE 78; RESP 20; TEMP 96.4; O2SAT 92
[2025-06-19] MEDS: FUROSEMIDE 40 MG/4 ML VIAL IV ONE (16:15)
[2025-06-19 17:00] VITALS: BP 122/97; PULSE 91; RESP 18; TEMP 97; O2SAT 95
--- NOTE | 2025-06-19 17:01 | DVHPN2 ---
Subjective Patient denies any chest pain shortness of breath. Changes from previous H/P or p: No Changes Eyes: No Pain, No Vision change, No Conjunctivae inflammation, No Eyelid inflammation, No Other, No Redness ENT: No Ear pain, No Ear discharge, No Nose pain, No Nose discharge, No Nose congestion, No Mouth pain, No Mouth swelling, No Throat pain, No Throat swelling, No Other Cardiovascular: No Chest Pain, No Palpitations, No Orthopnea, No Paroxysmal Noc. Dyspnea, No Edema, No Lt Headedness, No Other Respiratory: No Cough, No Dry; Shortness of breath, SOB with excertion, W heezing; No Hemoptysis, No Pleuritic Pain, No Sputum, No Other Gastrointestinal: No Nausea, No Vomiting; Abdominal Pain (Epigastric pain); No Diarrhea, No Constipation, No Melena, No Hematochezia, No Other Genitourinary: No Dysuria, No Frequency, No Incontinence, No Hematuria, No Retention, No Other Musculoskeletal: No other, No neck pain, No shoulder pain, No arm pain, No back pain, No hand pain, No leg pain, No foot pain Skin: No Rash, No Lesions, No Jaundice, No Bruising, No Other Objective Vitals Vital Signs Date Time Temp Pulse Resp B/P (MAP) Pulse Ox O2 Delivery O2 Flow Rate FiO2 06/19/25 11:20 84 106/77 06/19/25 09:00 96.4 18 94 96.4 06/19/25 08:00 Nasal Cannula* 3 32 Intake/Output Intake and Output 06/19/25 07:00 Intake Total 150 ml Output Total 300 ml Balance -150 ml Intake Oral 150 ml Output Urine Total 300 ml # Voids 5 # Bowel Movements 2 Medications Current Medications Medications Dose Ordered Sig/Justyna Route Start Time Stop Time Status Last Admin Dose Admin Sodium Chloride 10 ml Q8HR IV 06/17/25 14:00 06/19/25 13:49 10 ML Acetaminophen/ Hydrocodone Bitart 1 tab Q4HP PRN PO 06/17/25 09:30 06/19/25 03:18 1 TAB Ondansetron HCl 4 mg Q4HP PRN IV 06/17/25 09:30 06/19/25 03:18 4 MG Docusate Sodium 100 mg BIDPRN PRN PO 06/17/25 09:30 Acetaminophen 650 mg Q6HP PRN PO 06/17/25 09:30 06/19/25 08:29 650 MG Nitroglycerin 0.4 mg Q5MINP PRN SL 06/17/25 09:30 Morphine Sulfate 2 mg Q30M PRN IV 06/17/25 10:00 Aspirin 81 mg DAILY PO 06/17/25 10:00 06/19/25 10:20 81 MG Carvedilol 3.125 mg BID PO 06/17/25 10:00 06/19/25 10:20 3.125 MG Empaglifozin 10 mg DAILY PO 06/17/25 10:00 06/19/25 10:20 10 MG Sennosides 17.2 mg DAILY PO 06/17/25 10:00 Atorvastatin Calcium 10 mg HS PO 06/17/25 22:00 06/17/25 21:45 10 MG Lisinopril 2.5 mg DAILY PO 06/17/25 10:00 Hold Furosemide 40 mg DAILY IV 06/20/25 10:00 Laboratory Results Laboratory Tests 06/18/25 05:32 Urinalysis Test 06/17/25 13:45 Urine Color Yellow (Yellow) Urine Clarity Clear (Clear) Urine pH 5.0 (5.0-9.0) Urine Specific [place] 1.017 (1.001-1.035) Urine Protein Trace (Negative) H Urine Ketones Negative (Negative) Urine Blood Negative /uL (Negative) Urine Nitrite Negative (Negative) Urine Bilirubin Negative (Negative) Urine Urobilinogen Normal mg/dL (Negative) Urine Leukocyte Esterase Negative /uL (Negative) Urine RBC 1 /hpf (0 - 3) Urine Microscopic WBC < 1 /HPF (0-3) Urine Squamous Epithelial Cells None seen /hpf (<5) Urine Bacteria None seen /hpf (None Seen) Urine Glucose 4+ mg/dL (Normal) H Assessment/Plan Assessment/Plan 59-year-old male with a known history of congestive heart failure, hypertension, chronic respiratory failure on home O2, status post AICD, presented to the hospital with a shortness breath found to have 1. Acute on chronic congestive heart failure exacerbation unspecified 2. Elevated troponin suspect demand ischemia ruled out acute [place] 3. Hypertension 4. Status post AICD 5. Chronic respiratory failure on home O2 6. Gallbladder wall thickening, tolerating diet -2D echo cardiology consultation, continue current medications n Plan discussed with: Patient My Orders Orders - GENESIS BRUNNER MD Procedure Category Date Status Time Furosemide Injection PHA 06/20/25 In Process (Lasix Injection) 10:00 B-Type Natriuretic LAB 06/19/25 Logged Peptide 16:09 Magnesium LAB 06/19/25 Logged 16:09 Date of Service: Jun 20, 2025 Billing Provider: GENESIS BRUNNER MD Common Visit Codes: [id number] INP/OBS CARE(MOD) GENESIS BRUNNER MD Jun 19, 2025 17:01
[2025-06-19 20:00] VITALS: PULSE 85; RESP 19; O2SAT 95
[2025-06-19 21:00] VITALS: BP 110/82; PULSE 85; RESP 19; TEMP 97.5; O2SAT 95
--- NOTE | 2025-06-19 23:18 | DVHPN2 ---
Progress Note - Dictate Date Seen: Jun 19, 2025 Medical Necessity Reason Pt with a Central, PICC or Fol: No Subjective Patient was seen and evaluated in follow up. Patient is on 3 LPM NC. Patient is complaining generalized pain and nausea. BNP 1397. Telemetry reviewed. vital signs Vital Sign Date Time Temp Pulse Resp B/P (MAP) Pulse Ox O2 Delivery O2 Flow Rate FiO2 06/19/25 11:20 84 106/77 06/19/25 09:00 96.4 18 94 96.4 06/19/25 08:00 Nasal Cannula* 3 32 Total Intake and Output 06/18/25 06/18/25 06/19/25 15:00 23:00 07:00 Intake Total 150 ml Output Total 300 ml Balance -150 ml medications Current Medications Medications Dose Ordered Sig/Justyna Route Start Time Stop Time Status Last Admin Dose Admin Sodium Chloride 10 ml Q8HR IV 06/17/25 14:00 06/19/25 13:49 10 ML Acetaminophen/ Hydrocodone Bitart 1 tab Q4HP PRN PO 06/17/25 09:30 06/19/25 03:18 1 TAB Ondansetron HCl 4 mg Q4HP PRN IV 06/17/25 09:30 06/19/25 03:18 4 MG Docusate Sodium 100 mg BIDPRN PRN PO 06/17/25 09:30 Acetaminophen 650 mg Q6HP PRN PO 06/17/25 09:30 06/19/25 08:29 650 MG Nitroglycerin 0.4 mg Q5MINP PRN SL 06/17/25 09:30 Morphine Sulfate 2 mg Q30M PRN IV 06/17/25 10:00 Aspirin 81 mg DAILY PO 06/17/25 10:00 06/19/25 10:20 81 MG Carvedilol 3.125 mg BID PO 06/17/25 10:00 06/19/25 10:20 3.125 MG Empaglifozin 10 mg DAILY PO 06/17/25 10:00 06/19/25 10:20 10 MG Sennosides 17.2 mg DAILY PO 06/17/25 10:00 Atorvastatin Calcium 10 mg HS PO 06/17/25 22:00 06/17/25 21:45 10 MG Lisinopril 2.5 mg DAILY PO 06/17/25 10:00 Hold objective GENERAL: Alert and oriented x 3. No acute distress. EYES: PERRL, EOMI. Anicteric. HENT: Moist mucous membranes. LUNGS: Clear to auscultation bilaterally. CARDIOVASCULAR: Regular rate and rhythm. ABDOMEN: Soft, non-tender and non-distended. EXTREMITIES: No edema. NEUROLOGIC: No focal neurological deficits. SKIN: Warm, dry. laboratory and microbiology Laboratory Tests 06/18/25 05:32 Test 06/18/25 05:32 Range/Units Serum Glucose 104 74-106 mg/dL Problem List Elevated troponin. Gallstones. cardiomegaly. CHF. Hypertension. Hyperlipidemia. Assessment/Plan Continued all current supportive medical care. Nitro SL. Aspirin. Coreg. Morphine and [place] for pain management. Additional plan as per the hospital course. Plan discussed with: Patient CISCO PRIETO MD Jun 19, 2025 14:24
[2025-06-20] VITALS (8 sets, daily range): BP systolic 107–121; BP diastolic 70–94; PULSE 69–91; RESP 18–20; TEMP 97.1–98.6; O2SAT 93–100
[2025-06-20] MEDS: FUROSEMIDE 40 MG/4 ML VIAL IV SCH (10:00)
--- NOTE | 2025-06-20 17:00 | DVHPN2 ---
Subjective Patient denies any chest pain shortness of breath. Patient was stated that she was told that he had gallstones, gallbladder ultrasound shows gallbladder wall thickening, HIDA scan has been ordered although patient tolerating diet. Changes from previous H/P or p: No Changes Eyes: No Pain, No Vision change, No Conjunctivae inflammation, No Eyelid inflammation, No Other, No Redness ENT: No Ear pain, No Ear discharge, No Nose pain, No Nose discharge, No Nose congestion, No Mouth pain, No Mouth swelling, No Throat pain, No Throat swelling, No Other Cardiovascular: No Chest Pain, No Palpitations, No Orthopnea, No Paroxysmal Noc. Dyspnea, No Edema, No Lt Headedness, No Other Respiratory: No Cough, No Dry; Shortness of breath, SOB with excertion, W heezing; No Hemoptysis, No Pleuritic Pain, No Sputum, No Other Gastrointestinal: No Nausea, No Vomiting; Abdominal Pain (Epigastric pain); No Diarrhea, No Constipation, No Melena, No Hematochezia, No Other Genitourinary: No Dysuria, No Frequency, No Incontinence, No Hematuria, No Retention, No Other Musculoskeletal: No other, No neck pain, No shoulder pain, No arm pain, No back pain, No hand pain, No leg pain, No foot pain Skin: No Rash, No Lesions, No Jaundice, No Bruising, No Other Objective Vitals Vital Signs Date Time Temp Pulse Resp B/P (MAP) Pulse Ox O2 Delivery O2 Flow Rate FiO2 06/20/25 16:40 98.6 70 20 107/70 (82) 94 98.6 06/20/25 08:00 Nasal Cannula* 4 36 Intake/Output Intake and Output 06/20/25 07:00 Intake Total 1250 ml Balance 1250 ml Intake Oral 1250 ml # Voids 7 # Bowel Movements 1 Exam HEENT pupils are reactive Neck is supple CV is S1-S2 regular rate and rhythm Has been bilateral diminished breath sounds at bases GI posterior bowel sound Extremity no edema 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 Medications Current Medications Medications Dose Ordered Sig/Justyna Route Start Time Stop Time Status Last Admin Dose Admin Sodium Chloride 10 ml Q8HR IV 06/17/25 14:00 06/20/25 05:05 10 ML Acetaminophen/ Hydrocodone Bitart 1 tab Q4HP PRN PO 06/17/25 09:30 06/20/25 12:00 1 TAB Ondansetron HCl 4 mg Q4HP PRN IV 06/17/25 09:30 06/19/25 03:18 4 MG Docusate Sodium 100 mg BIDPRN PRN PO 06/17/25 09:30 Acetaminophen 650 mg Q6HP PRN PO 06/17/25 09:30 06/20/25 04:56 650 MG Nitroglycerin 0.4 mg Q5MINP PRN SL 06/17/25 09:30 Morphine Sulfate 2 mg Q30M PRN IV 06/17/25 10:00 Aspirin 81 mg DAILY PO 06/17/25 10:00 06/20/25 10:00 81 MG Carvedilol 3.125 mg BID PO 06/17/25 10:00 06/20/25 10:00 3.125 MG Empaglifozin 10 mg DAILY PO 06/17/25 10:00 06/20/25 10:00 10 MG Sennosides 17.2 mg DAILY PO 06/17/25 10:00 06/20/25 10:00 17.2 MG Atorvastatin Calcium 10 mg HS PO 06/17/25 22:00 06/19/25 21:13 10 MG Lisinopril 2.5 mg DAILY PO 06/17/25 10:00 Hold Furosemide 40 mg DAILY IV 06/20/25 10:00 06/20/25 10:00 40 MG Laboratory Results Laboratory Tests 06/18/25 05:32 Chemistry Test 06/19/25 18:59 Magnesium Level 2.2 mg/dL (1.6-2.6) Cardiac Markers Test 06/19/25 18:59 B-Type Natriuretic Peptide 1397.52 pg/mL (0-100) Urinalysis Test 06/17/25 13:45 Urine Color Yellow (Yellow) Urine Clarity Clear (Clear) Urine pH 5.0 (5.0-9.0) Urine Specific [place] 1.017 (1.001-1.035) Urine Protein Trace (Negative) H Urine Ketones Negative (Negative) Urine Blood Negative /uL (Negative) Urine Nitrite Negative (Negative) Urine Bilirubin Negative (Negative) Urine Urobilinogen Normal mg/dL (Negative) Urine Leukocyte Esterase Negative /uL (Negative) Urine RBC 1 /hpf (0 - 3) Urine Microscopic WBC < 1 /HPF (0-3) Urine Squamous Epithelial Cells None seen /hpf (<5) Urine Bacteria None seen /hpf (None Seen) Urine Glucose 4+ mg/dL (Normal) H Assessment/Plan Assessment/Plan 59-year-old male with a known history of congestive heart failure, hypertension, chronic respiratory failure on home O2, status post AICD, presented to the hospital with a shortness breath found to have 1. Acute on chronic congestive heart failure exacerbation unspecified 2. Elevated troponin suspect demand ischemia ruled out acute HI 3. Hypertension 4. Status post AICD 5. Chronic respiratory failure on home O2 6. Gallbladder wall thickening, HIDA scan or -HIDA scan -2D echo cardiology consultation, continue current medications Plan discussed with: Patient My Orders Orders - GENESIS BRUNNER MD Procedure Category Date Status Time Nm Hida Scan NM 06/20/25 Logged 16:55 Date of Service: Jun 20, 2025 Billing Provider: GENESIS BRUNNER MD Common Visit Codes: [id number] INP/OBS CARE(MOD) GENESIS BRUNNER MD Jun 20, 2025 17:00
[2025-06-20] MEDS: MELATONIN 5 MG TAB PO SCH (23:10)
--- NOTE | 2025-06-20 23:48 | DVHPN2 ---
Progress Note - Dictate Date Seen: Jun 20, 2025 Medical Necessity Reason Pt with a Central, PICC or Fol: No Subjective Patient was seen and evaluated in follow up. Patient is on 4 LPM NC. Patient is complaining abdominal pain with nausea. Patient is tolerating diet. Telemetry reviewed. vital signs Vital Sign Date Time Temp Pulse Resp B/P (MAP) Pulse Ox O2 Delivery O2 Flow Rate FiO2 06/20/25 13:00 98.0 87 20 121/94 (103) 96 98.0 06/20/25 08:00 Nasal Cannula* 4 36 Total Intake and Output 06/19/25 06/19/25 06/20/25 15:00 23:00 07:00 Intake Total 450 ml 800 ml Balance 450 ml 800 ml medications Current Medications Medications Dose Ordered Sig/Justyna Route Start Time Stop Time Status Last Admin Dose Admin Sodium Chloride 10 ml Q8HR IV 06/17/25 14:00 06/20/25 05:05 10 ML Acetaminophen/ Hydrocodone Bitart 1 tab Q4HP PRN PO 06/17/25 09:30 06/20/25 12:00 1 TAB Ondansetron HCl 4 mg Q4HP PRN IV 06/17/25 09:30 06/19/25 03:18 4 MG Docusate Sodium 100 mg BIDPRN PRN PO 06/17/25 09:30 Acetaminophen 650 mg Q6HP PRN PO 06/17/25 09:30 06/20/25 04:56 650 MG Nitroglycerin 0.4 mg Q5MINP PRN SL 06/17/25 09:30 Morphine Sulfate 2 mg Q30M PRN IV 06/17/25 10:00 Aspirin 81 mg DAILY PO 06/17/25 10:06/20/25 10:00 81 MG Carvedilol 3.125 mg BID PO 06/17/25 10:06/20/25 10:00 3.125 MG Empaglifozin 10 mg DAILY PO 06/17/25 10:00 06/20/25 10:00 10 MG Sennosides 17.2 mg DAILY PO 06/17/25 10:00 06/20/25 10:00 17.2 MG Atorvastatin Calcium 10 mg HS PO 06/17/25 22:00 06/19/25 21:13 10 MG Lisinopril 2.5 mg DAILY PO 06/17/25 10:00 Hold Furosemide 40 mg DAILY IV 06/20/25 10:00 06/20/25 10:00 40 MG objective GENERAL: Alert and oriented x 3. No acute distress. EYES: PERRL, EOMI. Anicteric. HENT: Moist mucous membranes. LUNGS: Clear to auscultation bilaterally. CARDIOVASCULAR: Regular rate and rhythm. ABDOMEN: Soft, non-tender and non-distended. EXTREMITIES: No edema. NEUROLOGIC: No focal neurological deficits. SKIN: Warm, dry. laboratory and microbiology Laboratory Tests 06/18/25 05:32 Test 06/18/25 05:32 Range/Units Serum Glucose 104 74-106 mg/dL Problem List Elevated troponin. Gallstones. cardiomegaly. CHF. Hypertension. Hyperlipidemia. Assessment/Plan Continued all current supportive medical care. Nitro SL. Aspirin. Coreg. Diuretics with Lasix. Morphine and [place] for pain management. Additional plan as per the hospital course. Plan discussed with: Patient CISCO PRIETO MD Jun 20, 2025 15:22
[2025-06-21] VITALS (19 sets, daily range): BP systolic 97–145; BP diastolic 56–93; PULSE 66–94; RESP 15–96; TEMP 95.8–98.4; O2SAT 93–99
--- NOTE | 2025-06-21 14:11 | DVH ---
Procedure: NM NM HIDA SCAN Exam Date: 06/21/2025 11:12 AM Clinical History: Gallbladder wall thickening Comparison Study: US GALLBLADDER on DOS: 06/17/25 Nuclear Medicine Hepatobiliary Scan. Technique: Following the intravenous administration of 4.4 mCi of technetium 99m labeled Choletec multiple plana r abdominal planar images were obtained in anterior projection in 5 minute intervals for40 minutes . Right lateral images were obtained at 40 minutes after injection. Findings: The liver appears grossly normal in size. There is no abnormal persistence of the cardiac or blood po ol activity. There is prompt visualization of the gallbladder and excretion of activity into the smal l bowel. Impression: Unremarkable hepatobiliary study without evidence of acute cholecystitis.
[2025-06-21 16:03] LABS: Base Excess -1.3 mmol/L (-2.0-3.0)
--- NOTE | 2025-06-21 16:36 | RESUS ---
CODE ASSIST ASSESSSMENT Initial Information Code Assist Date: Jun 21, 2025 Code Assist Time: 15:36 Location of Arrest: [place] Room # 275A Provider Name DR MARES CAME TO BEDSIDE, DR MARLEY-RESIDENT, MULTIPLE OTHER RESIDENTS, DR BRUNNER PRIMARY PAGED TO MAKE AWARE OF RAPID Time Notified: 15:36 Crash Cart Opened and Supplies: Yes (DEFIB PADS) Situation Situation comment: PATIENT WAS IN RESTROOM WIHT O2 ON AND AMBULATED BACK TO BED, RN AT BEDSIDE PULSE OX PLACED ON PATIENT READ 91-92%. RN NOTICED O2 WAS AT 5LPM INSTEAD OF 4 LPM PER REPORT. PATIENT BACK IN BED AND STATED HE WAS DIZZY AND THEN [id number] TO 79% QUICKLY WITH HR 30'S AT TIMES PER RN. PATIENT KEPT SAYING HE DID NOT FEEL WELL THEN RN CALLED RAPID RESPONSE. Background Background: SEE EMR Assessment Temperature (Fahrenheit): 93.5 (RECTAL) Blood Pressure Systolic: 118 Blood Pressure Diastolic: 93 Respiratory Rate: 18 O2 Sat by Pulse Oximetry: 85 Bedside Blood Glucose: 88 Assessment comment: PATIENT AWAKE, ALERT AND TALKING. NOSE CYANOTIC. SPO2 CAME UP TO 92-99% WITH 15LPM O2 VIA OXYMIZER. ABG REPORTED TO DR MARES, NEW ORDER PER DR MARLEY FOR BIPAP, UPGRADE TO H[place]E BUT TO LEAVE HERE FOR NOW DUE TO HYPOTHERMIA BUT MOVE WHEN TEMP STABILIZES, NADER HUGGER IN PLACE TO WARM UP PATIENT , MADE PRIMARY RN AWARE TO CHECK RECTAL TEMP AT LEAST Q1H WHILE ON NADER HUGGER. Recommendations/Interventions Procedures: Accu check, ABG, CXR Portable, CMP, CBC, PT/PTT, Troponin, EKG, Cardiac Monitoring, BIPAP, O2 Mask/NC Other Interventions ABG REPORTED TO DR MARES, NEW ORDER PER DR MARLEY FOR BIPAP, ROCEPHIN 2 GM IV ONCE, UPGRADE TO HAYDEE BUT TO LEAVE HERE FOR NOW DUE TO HYPOTHERMIA AND MOVE WHEN NORMOTHERMIC, MADE RN 3:1 RATIO FOR NOW, NADER HUGGER IN PLACE FOR HYPOTHERMIA , MADE PRIMARY RN AWARE TO CHECK RECTAL TEMP AT LEAST Q1H WHILE ON NADER HUGGER. Outcome Outcome: Transfer to Stepdown Follow up Report Follow up Report BP 120/98, 97% SPO2 ON 15LPM OXYMIZER THEN PLACED ON BIPAP 12/5 WITH BACK UP RATE 12 , RR 17, TOLERATED BIPAP ON NADER HUGGER, STILL ALERT/TALKING Team Members Team Members DR MARES, DR MARLEY, MULTIPLE OTHER RESIDENTS, MARKIE DEVIL TENDER, CAMILLE DOCK MANAGER, EDILMA RN, HARRISON RT, RADHA RT, Markie Ardon RN Jun 21, 2025 16:36
--- NOTE | 2025-06-21 16:39 | DVH ---
CHEST RADIOGRAPH Indication: sob Technique: Single frontal view of the chest was obtained Comparison: XY CHEST PORTABLE on DOS: 06/17/25 FINDINGS: Lines and Tubes: Pacemaker in place Lungs: No focal consolidation. Pleura: No effusion. No pneumothorax. Cardiomediastinal contours: Enlarged Bones: No acute osseous abnormality. IMPRESSION: 1. Cardiomegaly. 2. Pacemaker in place 3. No airspace disease or pulmonary vascular congestion.
[2025-06-21 16:44] LABS: Alanine Aminotransferase 37 U/L (7-40); Albumin 4.0 g/dL (3.2-4.8); Alkaline Phosphatase 104 U/L (46-116); Anion Gap 14 (5-15); BUN/Creatinine Ratio 34.1 (10.0-20.0); Blood Urea Nitrogen 45 mg/dL (9-23); Calcium 8.6 mg/dL (8.7-10.4); Carbon Dioxide 17 mmol/L (20-31); Chloride 105 mmol/L (98-107); Glucose 103 mg/dL (74-106); Magnesium,Therapeutic 2.31 mg/dL (4.0-7.1); Potassium 5.3 mmol/L (3.5-5.1); Sodium 136 mmol/L (136-145); Total Protein 6.4 g/dL (5.7-8.2)
[2025-06-21 16:45] LABS: Bilirubin, Total 2.0 mg/dL (0.2-1.0)
[2025-06-21 17:01] LABS: Hemoglobin 15.4 g/dL (13.5-17.5); Nucleated Red Blood Cells % 0.2 %
[2025-06-21 17:04] LABS: Hematocrit 48.2 % (41.0-53.0); Mean Corpuscular Hemoglobin 26.2 pg (28.0-32.0); Mean Corpuscular Volume 81.8 fL (80.0-100.0)
--- NOTE | 2025-06-21 17:04 | DVHPN2 ---
Subjective Patient was seen earlier during the day but later on went into respiratory distress requiring BiPAP upgraded to D OU. Changes from previous H/P or p: Changes (Patient went into respiratory distress requiring BiPAP support upgraded to D OU.) Eyes: No Pain, No Vision change, No Conjunctivae inflammation, No Eyelid inflammation, No Other, No Redness ENT: No Ear pain, No Ear discharge, No Nose pain, No Nose discharge, No Nose congestion, No Mouth pain, No Mouth swelling, No Throat pain, No Throat swelling, No Other Cardiovascular: No Chest Pain, No Palpitations, No Orthopnea, No Paroxysmal Noc. Dyspnea, No Edema, No Lt Headedness, No Other Respiratory: No Cough, No Dry; Shortness of breath, SOB with excertion, W heezing; No Hemoptysis, No Pleuritic Pain, No Sputum, No Other Gastrointestinal: No Nausea, No Vomiting; Abdominal Pain (Epigastric pain); No Diarrhea, No Constipation, No Melena, No Hematochezia, No Other Genitourinary: No Dysuria, No Frequency, No Incontinence, No Hematuria, No Retention, No Other Musculoskeletal: No other, No neck pain, No shoulder pain, No arm pain, No back pain, No hand pain, No leg pain, No foot pain Skin: No Rash, No Lesions, No Jaundice, No Bruising, No Other Objective Vitals Vital Signs Date Time Temp Pulse Resp B/P (MAP) Pulse Ox O2 Delivery O2 Flow Rate FiO2 06/21/25 16:36 98.1 78 22 108/89 98 50 98.1 06/21/25 16:20 Facial BiPAP Mask 06/20/25 20:00 4 Intake/Output Intake and Output 06/21/25 07:00 Intake Total 2100 ml Balance 2100 ml Intake Oral 2100 ml # Voids 9 # Bowel Movements 1 Exam HEENT pupils are reactive Neck is supple CV is S1-S2 regular rate and rhythm Has been bilateral diminished breath sounds at bases GI posterior bowel sound 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 Medications Current Medications Medications Dose Ordered Sig/Justyna Route Start Time Stop Time Status Last Admin Dose Admin Sodium Chloride 10 ml Q8HR IV 06/17/25 14:00 06/21/25 14:00 10 ML Acetaminophen/ Hydrocodone Bitart 1 tab Q4HP PRN PO 06/17/25 09:30 06/21/25 16:51 1 TAB Ondansetron HCl 4 mg Q4HP PRN IV 06/17/25 09:30 06/19/25 03:18 4 MG Docusate Sodium 100 mg BIDPRN PRN PO 06/17/25 09:30 Acetaminophen 650 mg Q6HP PRN PO 06/17/25 09:30 06/20/25 04:56 650 MG Nitroglycerin 0.4 mg Q5MINP PRN SL 06/17/25 09:30 Morphine Sulfate 2 mg Q30M PRN IV 06/17/25 10:00 Aspirin 81 mg DAILY PO 06/17/25 10:00 06/21/25 10:05 81 MG Carvedilol 3.125 mg BID PO 06/17/25 10:00 06/20/25 21:11 3.125 MG Empaglifozin 10 mg DAILY PO 06/17/25 10:00 06/21/25 10:05 10 MG Sennosides 17.2 mg DAILY PO 06/17/25 10:00 06/20/25 10:00 17.2 MG Atorvastatin Calcium 10 mg HS PO 06/17/25 22:00 06/20/25 21:11 10 MG Lisinopril 2.5 mg DAILY PO 06/17/25 10:00 Hold Furosemide 40 mg DAILY IV 06/20/25 10:00 06/20/25 10:00 40 MG Melatonin 5 mg HS PO 06/20/25 22:45 06/20/25 23:10 5 MG Laboratory Results Laboratory Tests 06/21/25 15:45 Chemistry Test 06/21/25 15:45 Albumin 4.0 g/dL (3.2-4.8) Calcium Level 8.6 mg/dL (8.7-10.4) L Total Protein 6.4 g/dL (5.7-8.2) Coagulation Test 06/21/25 16:00 D-Dimer, Quantitative Pending Cardiac Markers Test 06/21/25 16:00 B-Type Natriuretic Peptide Pending LFT Test 06/21/25 15:45 Alanine Aminotransferase (ALT) 37 U/L (7-40) Alkaline Phosphatase 104 U/L (46-116) Aspartate Amino Transferase (AST) 46 U/L (13-40) H Total Bilirubin 2.0 mg/dL (0.2-1.0) H Urinalysis Test 06/17/25 13:45 Urine Color Yellow (Yellow) Urine Clarity Clear (Clear) Urine pH 5.0 (5.0-9.0) Urine Specific [place] 1.017 (1.001-1.035) Urine Protein Trace (Negative) H Urine Ketones Negative (Negative) Urine Blood Negative /uL (Negative) Urine Nitrite Negative (Negative) Urine Bilirubin Negative (Negative) Urine Urobilinogen Normal mg/dL (Negative) Urine Leukocyte Esterase Negative /uL (Negative) Urine RBC 1 /hpf (0 - 3) Urine Microscopic WBC < 1 /HPF (0-3) Urine Squamous Epithelial Cells None seen /hpf (<5) Urine Bacteria None seen /hpf (None Seen) Urine Glucose 4+ mg/dL (Normal) H Blood Gas Results Test 06/21/25 15:58 Arterial Blood pH 7.513 (7.350-7.450) FiO2 % 72.0 Assessment/Plan Assessment/Plan 59-year-old male with a known history of congestive heart failure, hypertension, chronic respiratory failure on home O2, status post AICD, presented to the hospital with a shortness breath found to have 1. Acute on chronic congestive heart failure exacerbation unspecified, follow up 2D echo 2. Elevated troponin suspect demand ischemia ruled out acute DC 3. Hypertension 4. Status post AICD 5. Chronic respiratory failure on home O2 6. Gallbladder wall thickening, HIDA scan normal -H started on BiPAP, upgraded to D OU, continue diuretics -2D echo has been done but report is pending continue current medications Plan discussed with: Patient Date of Service: Jun 21, 2025 Billing Provider: GENESIS BRUNNER MD Common Visit Codes: [id number] INP/OBS CARE(HIGH) GENESIS BRUNNER MD Jun 21, 2025 17:04
[2025-06-21 17:27] LABS: Lactic Acid w/Reflex 2.5 mmol/L (0.4-2.0)
[2025-06-21] MEDS: SODIUM ZIRCONIUM CYCL 10 GM PAK PO ONE (17:30)
[2025-06-21] MEDS: FUROSEMIDE 100 MG/10ML VIAL IV ONE (17:30)
[2025-06-21] MEDS: LEVALBUTEROL HCL 1.25 MG/3 ML NEB NEB SCH (18:15)
[2025-06-21] MEDS: IPRATROPIUM BROM 0.5 MG/2.5ML INH SOL NEB SCH (18:15)
--- NOTE | 2025-06-21 20:10 | DVH ---
Clinical History: elevated ddimer Ultrasonic imaging with Duplex Doppler Color Flow and Spectral Analysis was performed on the common f emoral, femoral vein, great saphenous vein, popliteal vein, posterior tibial and peroneal veins bilat erally using imaging and pulse Doppler probes on a Duplex ultrasound machine. The venous response to augmentation and compression was also evaluated. The study was done at the specific request of the treating physician to evaluate blood flow and to evaluate for the presence of thrombosis in the above mentioned veins. WID: FINDINGS: On the left, all of above mentioned veins appear patent. Flow in the common femoral vein is phasic. All veins collapse with probe compression at all levels. There is normal augmentation with distal c ompression bilaterally. On the right, all of above mentioned veins appear patent. Flow in the common femoral vein is phasic. All veins collapse with probe compression at all levels. There is normal augmentation with distal compression bilaterally. IMPRESSION: No evidence of deep vein thrombus
--- NOTE | 2025-06-21 20:40 | DVHPN2 ---
Progress Note - Dictate Date Seen: Jun 21, 2025 Medical Necessity Reason Pt with a Central, PICC or Fol: No Subjective Patient was seen and evaluated in follow up. Patient is stable on 4 LPM NC. Patient is complaining of abdominal discomfort. Telemetry reviewed. vital signs Vital Sign Date Time Temp Pulse Resp B/P (MAP) Pulse Ox O2 Delivery O2 Flow Rate FiO2 06/21/25 10:06 108/87 06/21/25 10:06 77 06/21/25 09:00 98.4 20 96 98.4 06/20/25 20:00 Nasal Cannula* 4 36 Total Intake and Output 06/20/25 06/20/25 06/21/25 15:00 23:00 07:00 Intake Total 1800 ml 300 ml Balance 1800 ml 300 ml medications Current Medications Medications Dose Ordered Sig/Justyna Route Start Time Stop Time Status Last Admin Dose Admin Sodium Chloride 10 ml Q8HR IV 06/17/25 14:00 06/21/25 06:07 10 ML Acetaminophen/ Hydrocodone Bitart 1 tab Q4HP PRN PO 06/17/25 09:30 06/21/25 07:39 1 TAB Ondansetron HCl 4 mg Q4HP PRN IV 06/17/25 09:30 06/19/25 03:18 4 MG Docusate Sodium 100 mg BIDPRN PRN PO 06/17/25 09:30 Acetaminophen 650 mg Q6HP PRN PO 06/17/25 09:30 06/20/25 04:56 650 MG Nitroglycerin 0.4 mg Q5MINP PRN SL 06/17/25 09:30 Morphine Sulfate 2 mg Q30M PRN IV 06/17/25 10:00 Aspirin 81 mg DAILY PO 06/17/25 10:06/21/25 10:05 81 MG Carvedilol 3.125 mg BID PO 06/17/25 10:00 06/21/25 10:06 3.125 MG Empaglifozin 10 mg DAILY PO 06/17/25 10:06/21/25 10:05 10 MG Sennosides 17.2 mg DAILY PO 06/17/25 10:00 06/20/25 10:00 17.2 MG Atorvastatin Calcium 10 mg HS PO 06/17/25 22:00 06/20/25 21:11 10 MG Lisinopril 2.5 mg DAILY PO 06/17/25 10:00 Hold Furosemide 40 mg DAILY IV 06/20/25 10:00 06/21/25 10:06 40 MG Melatonin 5 mg HS PO 06/20/25 22:45 06/20/25 23:10 5 MG objective GENERAL: Alert and oriented x 3. No acute distress. EYES: PERRL, EOMI. Anicteric. HENT: Moist mucous membranes. LUNGS: Clear to auscultation bilaterally. CARDIOVASCULAR: Regular rate and rhythm. ABDOMEN: Soft, non-tender and non-distended. EXTREMITIES: No edema. NEUROLOGIC: No focal neurological deficits. SKIN: Warm, dry. laboratory and microbiology Laboratory Tests 06/18/25 05:32 Test 06/18/25 05:32 Range/Units Serum Glucose 104 74-106 mg/dL Problem List Elevated troponin. Gallstones. cardiomegaly. CHF. Hypertension. Hyperlipidemia. Assessment/Plan Continued all current supportive medical care. Nitro SL. Aspirin. Coreg. Diuretics with Lasix. Morphine and [place] for pain management. Additional plan as per the hospital course. Dietary Evaluation Review Comments: Monitor PO intake to meet his needs Followup with lab values and nephrology consult Expected Outcomes/Goals: Avoid uremic syndrome No weight loss Plan discussed with: Patient CISCO PRIETO MD Jun 21, 2025 12:47
[2025-06-21] MEDS ORDERED: MELATONIN 5 MG TAB PO SCH (22:00)
[2025-06-22] VITALS (41 sets, daily range): BP systolic 88–146; BP diastolic 27–99; PULSE 65–101; RESP 13–26; TEMP 96.9–98.2; O2SAT 83–100
[2025-06-22 06:41] LABS: Mean Corpuscular Hemoglobin 26.7 pg (28.0-32.0)
[2025-06-22 06:43] LABS: Hematocrit 44.6 % (41.0-53.0); Hemoglobin 14.6 g/dL (13.5-17.5); Mean Corpuscular Volume 81.6 fL (80.0-100.0)
[2025-06-22 07:00] LABS: Alanine Aminotransferase 29 U/L (7-40); Alkaline Phosphatase 100 U/L (46-116); Anion Gap 9 (5-15); BUN/Creatinine Ratio 23.2 (10.0-20.0); Carbon Dioxide 31 mmol/L (20-31); Chloride 99 mmol/L (98-107); Glucose 88 mg/dL (74-106); Magnesium 2.1 mg/dL (1.6-2.6); Potassium 4.2 mmol/L (3.5-5.1); Sodium 139 mmol/L (136-145); Total Protein 6.3 g/dL (5.7-8.2)
[2025-06-22 07:01] LABS: Albumin 3.9 g/dL (3.2-4.8)
[2025-06-22 07:02] LABS: Blood Urea Nitrogen 36 mg/dL (9-23); Calcium 8.6 mg/dL (8.7-10.4)
[2025-06-22 07:06] LABS: Bilirubin, Total 1.4 mg/dL (0.2-1.0)
[2025-06-22 08:13] LABS: Total Cells Counted 100.0 (100)
--- NOTE | 2025-06-22 17:47 | DVHPN2 ---
Subjective Patient is feeling much better still on D OU but currently off of BiPAP. Changes from previous H/P or p: No Changes Eyes: No Pain, No Vision change, No Conjunctivae inflammation, No Eyelid inflammation, No Other, No Redness ENT: No Ear pain, No Ear discharge, No Nose pain, No Nose discharge, No Nose congestion, No Mouth pain, No Mouth swelling, No Throat pain, No Throat swelling, No Other Cardiovascular: No Chest Pain, No Palpitations, No Orthopnea, No Paroxysmal Noc. Dyspnea, No Edema, No Lt Headedness, No Other Respiratory: No Cough, No Dry; Shortness of breath, SOB with excertion, W heezing; No Hemoptysis, No Pleuritic Pain, No Sputum, No Other Gastrointestinal: No Nausea, No Vomiting; Abdominal Pain (Epigastric pain); No Diarrhea, No Constipation, No Melena, No Hematochezia, No Other Genitourinary: No Dysuria, No Frequency, No Incontinence, No Hematuria, No Retention, No Other Musculoskeletal: No other, No neck pain, No shoulder pain, No arm pain, No back pain, No hand pain, No leg pain, No foot pain Skin: No Rash, No Lesions, No Jaundice, No Bruising, No Other Objective Vitals Vital Signs Date Time Temp Pulse Resp B/P (MAP) Pulse Ox O2 Delivery O2 Flow Rate FiO2 06/22/25 17:00 81 15 100/70 (80) 92 06/22/25 16:00 Nasal Cannula* 4 36 06/22/25 12:00 96.9 96.9 Intake/Output Intake and Output 06/22/25 07:00 Intake Total 1950 ml Output Total 1600 ml Balance 350 ml Intake Oral 1900 ml IV Total 50 ml Output Urine Total 1600 ml # Voids 9 Exam HEENT pupils are reactive Neck is supple CV is S1-S2 regular rate and rhythm Has been bilateral diminished breath sounds at bases GI posterior bowel sound Extremity no edema 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 Medications Current Medications Medications Dose Ordered Sig/Justyna Route Start Time Stop Time Status Last Admin Dose Admin Sodium Chloride 10 ml Q8HR IV 06/17/25 14:00 06/22/25 06:18 10 ML Acetaminophen/ Hydrocodone Bitart 1 tab Q4HP PRN PO 06/17/25 09:30 06/21/25 16:51 1 TAB Ondansetron HCl 4 mg Q4HP PRN IV 06/17/25 09:30 06/19/25 03:18 4 MG Docusate Sodium 100 mg BIDPRN PRN PO 06/17/25 09:30 Acetaminophen 650 mg Q6HP PRN PO 06/17/25 09:30 06/20/25 04:56 650 MG Nitroglycerin 0.4 mg Q5MINP PRN SL 06/17/25 09:30 Morphine Sulfate 2 mg Q30M PRN IV 06/17/25 10:00 Aspirin 81 mg DAILY PO 06/17/25 10:00 06/22/25 09:10 81 MG Carvedilol 3.125 mg BID PO 06/17/25 10:00 06/22/25 09:10 3.125 MG Empaglifozin 10 mg DAILY PO 06/17/25 10:00 06/22/25 09:09 10 MG Sennosides 17.2 mg DAILY PO 06/17/25 10:00 06/22/25 09:10 17.2 MG Atorvastatin Calcium 10 mg HS PO 06/17/25 22:00 06/21/25 22:05 10 MG Lisinopril 2.5 mg DAILY PO 06/17/25 10:00 Hold Furosemide 40 mg DAILY IV 06/20/25 10:00 06/22/25 09:09 40 MG Melatonin 5 mg HS PO 06/20/25 22:45 06/21/25 22:05 5 MG Levalbuterol HCl 1.25 mg Q6HR NEB 06/21/25 18:00 06/22/25 11:56 1.25 MG Ipratropium [place] 0.5 mg Q6HWA NEB 06/21/25 18:00 06/22/25 11:56 0.5 MG Sodium Chloride 1 spr QID EACHNOSTRI 06/22/25 18:00 Laboratory Results Laboratory Tests 06/22/25 06:09 Chemistry Test 06/22/25 06:09 Albumin 3.9 g/dL (3.2-4.8) Calcium Level 8.6 mg/dL (8.7-10.4) L Magnesium Level 2.1 mg/dL (1.6-2.6) Total Protein 6.3 g/dL (5.7-8.2) LFT Test 06/22/25 06:09 Alanine Aminotransferase (ALT) 29 U/L (7-40) Alkaline Phosphatase 100 U/L (46-116) Aspartate Amino Transferase (AST) 30 U/L (13-40) Total Bilirubin 1.4 mg/dL (0.2-1.0) H Urinalysis Test 06/17/25 13:45 Urine Color Yellow (Yellow) Urine Clarity Clear (Clear) Urine pH 5.0 (5.0-9.0) Urine Specific [place] 1.017 (1.001-1.035) Urine Protein Trace (Negative) H Urine Ketones Negative (Negative) Urine Blood Negative /uL (Negative) Urine Nitrite Negative (Negative) Urine Bilirubin Negative (Negative) Urine Urobilinogen Normal mg/dL (Negative) Urine Leukocyte Esterase Negative /uL (Negative) Urine RBC 1 /hpf (0 - 3) Urine Microscopic WBC < 1 /HPF (0-3) Urine Squamous Epithelial Cells None seen /hpf (<5) Urine Bacteria None seen /hpf (None Seen) Urine Glucose 4+ mg/dL (Normal) H Microbiology Microbiology Date/Time Source Procedure Growth Status 06/21/25 23:30 Nose MRSA Screen - Final Complete 06/21/25 16:10 Blood Blood Culture - Preliminary NO GROWTH AFTER 24 HOURS OF INCUBATION. Resulted Assessment/Plan Assessment/Plan 59-year-old male with a known history of congestive heart failure, hypertension, chronic respiratory failure on home O2, status post AICD, presented to the hospital with a shortness breath found to have 1. Acute on chronic congestive heart failure exacerbation unspecified, follow up 2D echo 2. Elevated troponin suspect demand ischemia ruled out acute [place] 3. Hypertension 4. Status post AICD 5. Acute on chronic Chronic respiratory failure was on BiPAP, currently off 6. Gallbladder wall thickening, HIDA scan normal -BiPAP off, continue current O2 supplementation, continue diuretics -2D echo has been done but report is pending continue current medications Plan discussed with: Patient My Orders Orders - GENESIS BRUNNER MD Procedure Category Date Status Time Saline ([place] Nasal PHA 06/22/25 In Process [place]) 18:00 Date of Service: Jun 22, 2025 Billing Provider: GENESIS BRUNNER MD Common Visit Codes: [id number] INP/OBS CARE(HIGH) GENESIS BRUNNER MD Jun 22, 2025 17:47
[2025-06-22] MEDS: IPRATROPIUM BROM 0.5 MG/2.5ML INH SOL ONE (17:50)
[2025-06-22] MEDS: LEVALBUTEROL HCL 1.25 MG/3 ML NEB ONE (17:50)
[2025-06-22] MEDS: SALINE 0.65 % NASAL SPRAY 45ML BOTTLE EACHNOSTRI SCH (18:15)
[2025-06-22] MEDS: DOCUSATE SOD 100 MG CAP PO PRN (23:41)
[2025-06-23] VITALS (27 sets, daily range): BP systolic 91–118; BP diastolic 55–98; PULSE 77–102; RESP 11–22; TEMP 97.4–98.2; O2SAT 90–99
--- NOTE | 2025-06-23 00:12 | DVHPN2 ---
Progress Note - Dictate Date Seen: Jun 22, 2025 Medical Necessity Reason Pt with a Central, PICC or Fol: No Subjective Patient was seen and evaluated in follow up in the [facility]. Patient is feeling short of breath. He is on 4 LPM NC. 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 vital signs Vital Sign Date Time Temp Pulse Resp B/P (MAP) Pulse Ox O2 Delivery O2 Flow Rate FiO2 06/22/25 12:00 84 06/22/25 12:00 24 115/80 (92) 94 06/22/25 12:00 Nasal Cannula* 4 36 06/22/25 08:00 96.9 96.9 Total Intake and Output 06/21/25 06/21/25 06/22/25 15:00 23:00 07:00 Intake Total 1250 ml 700 ml Output Total 1600 ml Balance 1250 ml -900 ml medications Current Medications Medications Dose Ordered Sig/Justyna Route Start Time Stop Time Status Last Admin Dose Admin Sodium Chloride 10 ml Q8HR IV 06/17/25 14:00 06/22/25 06:18 10 ML Acetaminophen/ Hydrocodone Bitart 1 tab Q4HP PRN PO 06/17/25 09:30 06/21/25 16:51 1 TAB Ondansetron HCl 4 mg Q4HP PRN IV 06/17/25 09:30 06/19/25 03:18 4 MG Docusate Sodium 100 mg BIDPRN PRN PO 06/17/25 09:30 Acetaminophen 650 mg Q6HP PRN PO 06/17/25 09:30 06/20/25 04:56 650 MG Nitroglycerin 0.4 mg Q5MINP PRN SL 06/17/25 09:30 Morphine Sulfate 2 mg Q30M PRN IV 06/17/25 10:00 Aspirin 81 mg DAILY PO 06/17/25 10:00 06/22/25 09:10 81 MG Carvedilol 3.125 mg BID PO 06/17/25 10:00 06/22/25 09:10 3.125 MG Empaglifozin 10 mg DAILY PO 06/17/25 10:00 06/22/25 09:09 10 MG Sennosides 17.2 mg DAILY PO 06/17/25 10:00 06/22/25 09:10 17.2 MG Atorvastatin Calcium 10 mg HS PO 06/17/25 22:00 06/21/25 22:05 10 MG Lisinopril 2.5 mg DAILY PO 06/17/25 10:00 Hold Furosemide 40 mg DAILY IV 06/20/25 10:00 06/22/25 09:09 40 MG Melatonin 5 mg HS PO 06/20/25 22:45 06/21/25 22:05 5 MG Levalbuterol HCl 1.25 mg Q6HR NEB 06/21/25 18:00 06/22/25 11:56 1.25 MG Ipratropium [place] 0.5 mg Q6HWA [facility] 06/21/25 18:00 06/22/25 11:56 0.5 MG objective GENERAL: Alert and oriented x 3. No acute distress. EYES: PERRL, EOMI. Anicteric. HENT: Moist mucous membranes. LUNGS: Clear to auscultation bilaterally. CARDIOVASCULAR: Regular rate and rhythm. ABDOMEN: Soft, non-tender and non-distended. EXTREMITIES: No edema. NEUROLOGIC: No focal neurological deficits. SKIN: Warm, dry. laboratory and microbiology Laboratory Tests 06/22/25 06:09 Test 06/22/25 06:09 Range/Units Serum Glucose 88 74-106 mg/dL Problem List Elevated troponin. Gallstones. cardiomegaly. CHF. Hypertension. Hyperlipidemia. Assessment/Plan Continued all current supportive medical care. Nitro SL. Aspirin. Coreg. Diuretics with Lasix. Morphine for pain management. Additional plan as per the hospital course. Critical care time of 45 minutes provided to include time spent evaluation of patient at bedside, when appropriate patient/family education for diagnosis, treatment plan, review of pertinent medical information and discussion of care with specialty providers and PCP. Dietary Evaluation Review Comments: Monitor PO intake to meet his needs Followup with lab values and nephrology consult Expected Outcomes/Goals: Avoid uremic syndrome No weight loss Plan discussed with: Patient CISCO PRIETO MD Jun 22, 2025 12:57
[2025-06-23] MEDS ORDERED: IPRATROPIUM BROM 0.5 MG/2.5ML INH SOL ONE (06:08)
[2025-06-23 07:55] LABS: Hematocrit 44.2 % (41.0-53.0); Hemoglobin 14.4 g/dL (13.5-17.5); Mean Corpuscular Hemoglobin 26.6 pg (28.0-32.0); Mean Corpuscular Volume 81.7 fL (80.0-100.0); Nucleated Red Blood Cells % 0.1 %
[2025-06-23 08:00] LABS: Anion Gap 10 (5-15); Carbon Dioxide 31 mmol/L (20-31); Chloride 98 mmol/L (98-107); Potassium 4.0 mmol/L (3.5-5.1); Sodium 139 mmol/L (136-145)
[2025-06-23 08:06] LABS: BUN/Creatinine Ratio 26.6 (10.0-20.0); Calcium 8.6 mg/dL (8.7-10.4); Glucose 87 mg/dL (74-106)
[2025-06-23 08:08] LABS: Blood Urea Nitrogen 41 mg/dL (9-23)
--- NOTE | 2025-06-23 16:56 | DVHDS2 ---
Discharge Summary Date of Admission Jun 17, 2025 at 09:23 Date of Discharge: Jun 23, 2025 Labs/Diagnostic Data: Laboratory Results Test 06/23/25 11:13 06/23/25 05:54 06/22/25 06:09 06/21/25 18:15 Troponin I High Sensitivity 74 ng/L (</=54) White Blood Count 8.3 10^3/uL (4.4-10.8) Red Blood Count 5.41 10^6/uL (4.5-5.90) Hemoglobin 14.4 g/dL (13.5-17.5) Hematocrit 44.2 % (41.0-53.0) Mean Corpuscular Volume 81.7 fL (80.0-100.0) Mean Corpuscular Hemoglobin 26.6 pg (28.0-32.0) Mean Corpuscular Hemoglobin Concent 32.6 g/dL (32.0-36.0) Red Cell Distribution Width 17.3 % (11.8-14.3) Platelet Count 168 10^3/uL (140-450) Mean Platelet Volume 9.1 fL (6.9-10.8) Neutrophils (%) (Auto) 60.3 % (37.0-80.0) Lymphocytes (%) (Auto) 24.0 % (10.0-50.0) Monocytes (%) (Auto) 13.8 % (0.0-12.0) Eosinophils (%) (Auto) 1.2 % (0.0-7.0) Basophils (%) (Auto) 0.7 % (0.0-2.0) Neutrophils # (Auto) 5.0 10 ^3/uL (1.6-8.6) Lymphocytes # (Auto) 2.0 10 ^3/uL (0.4-5.4) Monocytes # (Auto) 1.2 10 ^3/uL (0-1.3) Eosinophils # (Auto) 0.1 10 ^3/uL (0-0.8) Basophils # (Auto) 0.1 10 ^3/uL (0-0.2) Nucleated Red Blood Cells 0.1 % Sodium Level 139 mmol/L (136-145) Potassium Level 4.0 mmol/L (3.5-5.1) Chloride Level 98 mmol/L (98-107) Carbon Dioxide Level 31 mmol/L (20-31) Anion Gap 10 (5-15) Blood Urea Nitrogen 41 mg/dL (9-23) Creatinine 1.54 mg/dL (0.700-1.30) Glomerular Filtration Rate Calc 51 mL/min (>90) BUN/Creatinine Ratio 26.6 (10.0-20.0) Serum Glucose 87 mg/dL (74-106) Calcium Level 8.6 mg/dL (8.7-10.4) Differential Total Cells Counted 100.0 (100) Neutrophils % (Manual) 59 (37.0-80.0) Band Neutrophils % (Manual) 0 Lymphocytes % (Manual) 23 (10.0-50.0) Monocytes % (Manual) 16 (0-12) Eosinophils % (Manual) 1 (0-7) Basophils % (Manual) 0 (0.0-2.0) Metamyelocytes % (manual) 0 Myelocytes % (Manual) 0 Promyelocytes % (Manual) 0 Blast Cells % (Manual) 0 Reactive Lymphocytes 1 Platelet Estimate Adequate Magnesium Level 2.1 mg/dL (1.6-2.6) Total Bilirubin 1.4 mg/dL (0.2-1.0) Aspartate Amino Transferase (AST) 30 U/L (13-40) Alanine Aminotransferase (ALT) 29 U/L (7-40) Alkaline Phosphatase 100 U/L (46-116) Total Protein 6.3 g/dL (5.7-8.2) Albumin 3.9 g/dL (3.2-4.8) Lactic Acid Level 1.5 mmol/L (0.4-2.0) Test 06/21/25 16:00 06/21/25 15:58 06/21/25 15:45 06/17/25 13:45 D-Dimer, Quantitative 0.73 mg/L FEU (0.0-0.49) B-Type Natriuretic Peptide 1833.67 pg/mL (0-100) Blood Gas Specimen Type Arterial Blood Gas Sample Site Right radial Blood Gas Patient Temperature 37.0 Arterial Blood Date Drawn [id number] Arterial Blood pH 7.513 (7.350-7.450) Arterial Blood Partial Pressure CO2 25.0 mmHg (35.0-48.0) Arterial Blood Partial Pressure O2 62.7 mmHg (83.0-108.0) Arterial Blood HCO3 19.6 mmol/L (21.0-28.0) Arterial Blood Oxygen Saturation 92.3 % (94.0-98.0) Arterial Blood Base Excess -1.3 mmol/L (-2.0-3.0) Arterial Blood Oxyhemoglobin 90.5 % (94.0-98.0) Arterial Blood Carboxyhemoglobin 1.6 % (0.5-1.5) Arterial Blood Methemoglobin 0.3 % (0.0-1.5) [place] Test Modified Blood Gas Total Hemoglobin 16.20 g/dL (13.5-17.5) Blood Gas Liter Flow 10.00 Blood Gas Modality Oxymizer FiO2 % 72.0 Magnesium Lvl (Mg Sulfate Therapy) 2.31 mg/dL (4.0-7.1) Urine Color Yellow (Yellow) Urine Clarity Clear (Clear) Urine pH 5.0 (5.0-9.0) Urine Specific [place] 1.017 (1.001-1.035) Urine Protein Trace (Negative) Urine Ketones Negative (Negative) Urine Blood Negative /uL (Negative) Urine Nitrite Negative (Negative) Urine Bilirubin Negative (Negative) Urine Urobilinogen Normal mg/dL (Negative) Urine Leukocyte Esterase Negative /uL (Negative) Urine RBC 1 /hpf (0 - 3) Urine Microscopic WBC < 1 /HPF (0-3) Urine Squamous Epithelial Cells None seen /hpf (<5) Urine Bacteria None seen /hpf (None Seen) Urine Glucose 4+ mg/dL (Normal) Urine Opiates Screen Neg (NEGATIVE) Urine Fentanyl Screen Neg (NEGATIVE) Urine Barbiturates Screen Neg (NEGATIVE) Urine Phencyclidine Screen Neg (NEGATIVE) Urine Amphetamines Screen Neg (NEGATIVE) Urine Benzodiazepines Screen Neg (NEGATIVE) Urine Cocaine Screen Neg (NEGATIVE) Urine Cannabinoids Screen Neg (NEGATIVE) Other Laboratory Tests 06/23/25 05:54 Brief Hx & Hospital Course: 59-year-old male with a known history of congestive heart failure, hypertension, chronic respiratory failure on home O2, status post AICD, presented to the hospital with a shortness breath found to have acute on chronic congestive heart failure exacerbation with a probably systolic dysfunction. Patient also has a elevated troponin which was thought secondary to demand ischemia secondary to acute CHF exacerbation. Cardiology was on board. Patient was given IV diuretics O2 supplementation. Patient's hospital course was eventful for rapid response as his saturation was dropping into 50s requiring BiPAP support. Patient was upgraded to [facility]. Today patient is feeling much better only on room air. Patient is being discharged under stable condition. Patient is complaining of right upper quadrant pain, ultrasound gallbladder showed evidence of mild gallbladder wall thickening but HIDA scan is normal. Patient is tolerating diet. Condition at Discharge: Stable Final Diagnosis/Problems List 59-year-old male with a known history of congestive heart failure, hypertension, chronic respiratory failure on home O2, status post AICD, presented to the hospital with a shortness breath found to have 1. Acute on chronic congestive heart failure exacerbation unspecified, follow up 2D echo 2. Elevated troponin suspect demand ischemia ruled out acute CT 3. Hypertension 4. Status post AICD 5. Acute on chronic Chronic respiratory failure was on BiPAP, currently off 6. Gallbladder wall thickening, HIDA scan normal Discharge Disposition: Home SNF Discharge Will this Physician continue t: No Discharge Instruct/Medications Diet: Cardiac 2g Na,low cholest Activity: No Restrictions, As Tolerated Follow Up/Referral: Please follow up with the PCP and CardiologyIn 1-2 weeks Medications: Resume home medications. Continued Medications: Aspirin (Aspirin Adult Low Dose) 81 Mg Tab 1 TAB PO DAILY Atorvastatin Calcium (Lipitor) 10 Mg Tab 1 TAB PO QPM, #90 TAB 1 Refill Carvedilol (Coreg) 3.125 Mg Tab 3.125 MG OR BID, TAB Empagliflozin (Jardiance) 10 Mg Tab 10 MG PO DAILY, TAB Furosemide (Furosemide) 20 Mg Tab 1 TAB PO DAILY Lisinopril (Lisinopril) 2.5 Mg Tab 1 TAB PO DAILY, #30 TAB 5 Refills Senna (Senna) 8.6 Mg Tab 2 TAB PO DAILY Scheduled Aspirin (Aspirin Adult Low Dose), 1 TAB PO DAILY, (Reported) Atorvastatin Calcium (Lipitor), 1 TAB PO QPM, (Reported) Carvedilol (Coreg), 3.125 MG OR BID, (Reported) Empagliflozin (Jardiance), 10 MG PO DAILY, (Reported) Furosemide (Furosemide), 1 TAB PO DAILY, (Reported) Lisinopril (Lisinopril), 1 TAB PO DAILY, (Reported) Senna (Senna), 2 TAB PO DAILY, (Reported) Discharge Statement: "Patient was advised to return to the ER or call 911 if any headaches, dizziness, shortness of breath, chest pain, abdominal pain, bleeding, fevers, or worsening of medical condition. Patient was counseled about treatment plan, medications, possible side effects, patientverbalized understanding. All questions were answered to the best of my ability. This discharge took greater then 30 minutes in planning, reviewing documentation, counseling the patient, and discussing with other team members." ASSESSMENT ASSESSMENT Assessment 59-year-old male with a known history of congestive heart failure, hypertension, chronic respiratory failure on home O2, status post AICD, presented to the hospital with a shortness breath found to have 1. Acute on chronic congestive heart failure exacerbation unspecified, follow up 2D echo 2. Elevated troponin suspect demand ischemia ruled out acute CT 3. Hypertension 4. Status post AICD 5. Acute on chronic Chronic respiratory failure was on BiPAP, currently off 6. Gallbladder wall thickening, HIDA scan normal Date of Service: Jun 23, 2025 Billing Provider: GENESIS BRUNNER MD Common Visit Codes: [id number] DISCH DAY >30min GENESIS BRUNNER MD Jun 23, 2025 16:56
--- NOTE | 2025-06-23 20:02 | DVHPN2 ---
Progress Note - Dictate Date Seen: Jun 23, 2025 Medical Necessity Reason Pt with a Central, PICC or Fol: No Subjective Patient was seen and evaluated in follow up in the [facility]. Overnight, the patient reported trouble sleeping and anxiousness. Mist recent troponin 74. 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 vital signs Vital Sign Date Time Temp Pulse Resp B/P (MAP) Pulse Ox O2 Delivery O2 Flow Rate FiO2 06/23/25 13:09 87 21 91/67 (75) 06/23/25 12:00 97.9 95 97.9 06/23/25 12:00 Nasal Cannula* 4 36 Total Intake and Output 06/22/25 06/22/25 06/23/25 15:00 23:00 07:00 Intake Total 800 ml 1900 ml Output Total 2450 ml 1500 ml Balance -1650 ml 400 ml medications Current Medications Medications Dose Ordered Sig/Justyna Route Start Time Stop Time Status Last Admin Dose Admin Sodium Chloride 10 ml Q8HR IV 06/17/25 14:00 06/23/25 06:00 10 ML Acetaminophen/ Hydrocodone Bitart 1 tab Q4HP PRN PO 06/17/25 09:30 06/23/25 03:38 1 TAB Ondansetron HCl 4 mg Q4HP PRN IV 06/17/25 09:30 06/19/25 03:18 4 MG Docusate Sodium 100 mg BIDPRN PRN PO 06/17/25 09:30 06/22/25 23:41 100 MG Acetaminophen 650 mg Q6HP PRN PO 06/17/25 09:30 06/20/25 04:56 650 MG Nitroglycerin 0.4 mg Q5MINP PRN SL 06/17/25 09:30 Morphine Sulfate 2 mg Q30M PRN IV 06/17/25 10:00 Aspirin 81 mg DAILY PO 06/17/25 10:00 06/23/25 10:21 81 MG Carvedilol 3.125 mg BID PO 06/17/25 10:00 06/23/25 10:20 3.125 MG Empaglifozin 10 mg DAILY PO 06/17/25 10:00 06/23/25 10:21 10 MG Sennosides 17.2 mg DAILY PO 06/17/25 10:00 06/23/25 10:20 17.2 MG Atorvastatin Calcium 10 mg HS PO 06/17/25 22:00 06/22/25 22:55 10 MG Lisinopril 2.5 mg DAILY PO 06/17/25 10:00 Hold Furosemide 40 mg DAILY IV 06/20/25 10:00 06/23/25 10:19 40 MG Melatonin 5 mg HS PO 06/20/25 22:45 06/22/25 22:55 5 MG Levalbuterol HCl 1.25 mg Q6HR NEB 06/21/25 18:00 06/23/25 11:35 1.25 MG Ipratropium [place] 0.5 mg Q6HWA NEB 06/21/25 18:00 06/23/25 11:35 0.5 MG Sodium Chloride 1 spr QID EACHNOSTRI 06/22/25 18:00 06/23/25 11:25 1 SPR objective GENERAL: Alert and oriented x 3. No acute distress. EYES: PERRL, EOMI. Anicteric. HENT: Moist mucous membranes. LUNGS: Clear to auscultation bilaterally. CARDIOVASCULAR: Regular rate and rhythm. ABDOMEN: Soft, non-tender and non-distended. EXTREMITIES: No edema. NEUROLOGIC: No focal neurological deficits. SKIN: Warm, dry. laboratory and microbiology Laboratory Tests 06/23/25 05:54 Test 06/23/25 05:54 Range/Units Serum Glucose 87 74-106 mg/dL Problem List Elevated troponin. Gallstones. cardiomegaly. CHF. Hypertension. Hyperlipidemia. Assessment/Plan Continued all current supportive medical care. Nitro SL. Aspirin. Coreg. Diuretics with Lasix. Nebulized breathing treatments. [place] and Morphine for pain management. Additional plan as per the hospital course. Critical care time of 45 minutes provided to include time spent evaluation of patient at bedside, when appropriate patient/family education for diagnosis, treatment plan, review of pertinent medical information and discussion of care with specialty providers and PCP. Dietary Evaluation Review Comments: Monitor PO intake to meet his needs Followup with lab values and nephrology consult Expected Outcomes/Goals: Avoid uremic syndrome No weight loss Plan discussed with: Patient CISCO PRIETO MD Jun 23, 2025 14:02
--- NOTE | 2025-06-25 18:28 | DVHSR ---
APPROVED REPORT EXAM: Two-dimensional and M-mode echocardiogram with Doppler and color Doppler. Blood Pressure: 126/93 mmHg INDICATION Heart Failure RISK FACTORS Height: 5'10", Weight: 158 DIMENSIONS LVDd6.7 (3.8-5.7cm)LA (2D)6.1 (1.9-4.0cm)Aortic Root3.7 (2.0-3.7cm) LVDs6.4 (2.5-4.0cm)LA (MM) (1.9-4.0cm)Aortic Cusp Exc2.0 (1.5-2.0cm) EF (%) 8.0 (55-70%)Rt. Atrium5.8 (1.9-4.0cm)Asc. Aorta3.8 cm IVSd1.1 (0.7-1.1cm)RV (D)5.6 (1.8-2.4cm) PWd1.3 (0.7-1.1cm) Mitral Valve MitralMitral Stenosis E wave1.30m/sMV Mean GR.3mmHg A wavem/sMV Peak GR.8mmHg E/A ratio0.02D MVAcm2 Aortic Valve Aortic ValveAortic Stenosis V10.87m/Nabeel Mean GR.2mmHg V20.85m/Nabeel Peak GR.3mmHg LVOT Diameter2.2 (1.8-2.4cm)Doppler AVA3.89cm2 Pulmonic Valve V20.59m/s Tricuspid Valve TR Velocity1.98m/s [id number] Conclusion Technically good study. Sinus rhythm. Biatrial enlargement. Biventricular enlargement. Aortic root enlargement. The aortic valve is structurally normal. There was thickening of the anterior and posterior mitral l eaflets but more so of the anterior leaflet. Markedly diminished excursion of the anterior mitral le aflet with thickening and a dense nodularity at the tip of the anterior mitral leaflet. There was di minished excursion of the posterior mitral leaflet as well without overt thickening and/or calcificat ion. The tricuspid and pulmonic or structurally normal. Short axis views suggest no mitral stenosis . Diminished excursion of the leaflets secondary to poor cardiac output. Left ventricular function is markedly diminished. EF is a proximally 10% or less. Severe tricuspid regurgitation with a moderate mitral insufficiency. Pacing lead noted in RV. No masses or vegetations discernible.
== END 2025-06-23 18:45 | disposition home or self-care (01) | DRG 133 ==
LOC: ER 06:00 → EDBD 06:00 → OVERFLOW 09:23 → TELE-WESTW 23:54 → DOU 06-21 21:05
PROVIDERS: ADMIT Internal Medicine; ATTEND Internal Medicine
PROC: 5A09357 Assistance with Respiratory Ventilation, Less than 24 Consecutive Hours, Continuous Positive Airway Pressure (ICD-10-PCS; principal; 2025-06-21)
PROC: 5A0935A Assistance with Respiratory Ventilation, Less than 24 Consecutive Hours, High Flow/Velocity Cannula (ICD-10-PCS; 2025-06-22)
DX: J96.20 Acute and chronic respiratory failure, unspecified whether with hypoxia or hypercapnia (principal); N17.0 Acute kidney failure with tubular necrosis; I50.23 Acute on chronic systolic (congestive) heart failure; I24.89 Other forms of acute ischemic heart disease; I13.0 Hypertensive heart and chronic kidney disease with heart failure and stage 1 through stage 4 chronic kidney disease, or unspecified chronic kidney disease; Z99.81 Dependence on supplemental oxygen; K80.20 Calculus of gallbladder without cholecystitis without obstruction; E78.5 Hyperlipidemia, unspecified; N18.9 Chronic kidney disease, unspecified; Z88.0 Allergy status to penicillin; Z95.810 Presence of automatic (implantable) cardiac defibrillator; Z79.899 Other long term (current) drug therapy
CPT/HCPCS: 36415; 36600; 71045; 76705; 78226; 80048; 80053; 80307; 81001; 82805; 83605; 83735; 83880; 84484; 85007; 85025; 85027; 85379; 87040; 87081; 93005; 93306; 93970; 94640; 94660; 99291; G0378; J2405

== ENCOUNTER 2025-06-27 12:17 | Inpatient (IN) | payer MEDICAID ==
[~2025-06-27] VITALS: Ht 177.8 cm; Wt 87.0 kg
[~2025-06-27 12:17] MED LIST: ASPI-628 PO; ATOR10TA PO; CARV-214 OR; EMPA1TAB PO; FURO20TA4 PO; LISI2.5T47 PO; SENN-105 PO
--- NOTE | 2025-06-27 12:28 | ED.PDOC ---
SOB-HPI HPI Comments This is a 59 year old male OMARA presenting to the ED with chief complaint of SOB. Patient reports that he has been experiencing intermittent SOB, worsening over time, since Tuesday. Patient relays that he was recently admitted to [facility] for similar symptoms last week and was discharged on Tuesday feeling better, but later in the day started to experience SOB again. Patient states that he is normally on home O2, but even when turning it up, he has no relief. EMS notes patient was at 86% on RA, but improved when placed on 4L of O2 via NC. Patient denies any chest pain, fever, cough, chills, headache, or syncope. Chief Complaint: Shortness of Breath Time Seen by MD: 12:25 Reviewed notes: Nurses Notes, Impress Associate Notes, Medications, Allergies Information Source: Patient, Emergency Med Personnel Mode of Arrival: EMS Severity: Moderate Timing: Days Duration: Since onset Context: At Rest PE Risk Factors: None History of: CHF Prehospital treatment: Oxygen Modifying Factors: Nothing Associated Signs and Symptoms: None Past Medical History PAST MEDICAL HISTORY: CHF, CKF, Gallstones, High Lipids, HTN Surgical History: Pacemaker Family History Family History: Reviewed,noncontributory to illness, Family hx of heart jenelle Social History Smoker: Non-Smoker Alcohol: Denies ETOH Use Drugs: Denies Drug Use Lives In: Home Constitutional: denies: chills, diaphoresis, fatigue, fever, malaise, sweats, weakness, others EENTM: denies: blurred vision, double vision, ear bleeding, ear discharge, ear drainage, ear pain, ear ringing, eye pain, eye redness, hearing loss, mouth pain, mouth swelling, nasal discharge, nose bleeding, nose congestion, nose pain, photophobia, tearing, throat pain, throat swelling, voice changes, others Respiratory: reports: shortness of breath; denies: cough, hemoptysis, orthopnea, SOB at rest, SOB with excertion, stridor, wheezing, others Cardiovascular: denies: chest pain, dizzy spells, diaphoresis, Dyspnea on exertion, edema, irregular heart beat, left arm pain, lightheadedness, palpitations, PND, syncope, others Gastrointestinal: denies: abdomen distended, abdominal pain, blood streaked bowels, constipated, diarrhea, dysphagia, difficulty swallowing, hematemesis, melena, nausea, poor appetite, poor fluid intake, rectal bleeding, rectal pain, vomiting, others Genitourinary: denies: burning, dysuria, flank pain, frequency, hematuria, incontinence, penile discharge, penile sore, pain, testicle pain, testicle swelling, urgency, others Neurological: denies: dizziness, fainting, headache, left sided numbness, left sided weakness, numbness, paresthesia, pre-existing deficit, right sided numbness, right sided weakness, seizure, speech problems, tingling, tremors, weakness, others Musculoskeletal: denies: back pain, gout, joint pain, joint swelling, muscle pain, muscle stiffness, neck pain, others Integumetry: denies: bruises, change in color, change in hair/nails, dryness, laceration, lesions, lumps, rash, wounds, others Allergic/Immunocompromised: denies: Difficulty Healing, Frequent Infections, Hives, Itching, others Hematologic/Lymphatic: denies: anemia, blood clots, easy bleeding, easy bruising, swollen glands, others Endocrine: denies: excessive hunger, excessive sweating, excessive thirst, excessive urination, flushing, intolerance to cold, intolerance to heat, unexplained weight gain, unexplained weight loss, others Psychiatric: denies: anxiety, bipolar disorder, depression, hopeless, panic disorder, schizophrenia, sleepless, suicidal, others All Other Systems: Reviewed and Negative Physical Exam General Appearance: Moderate Distress, Normal HEENT: Normal ENT Inspection, Pharynx Normal, TMs Normal Neck: Full Range of Motion, Non-Tender, Normal, Normal Inspection Respiratory: Chest Non-Tender, Lungs Clear, No Accessory Muscle Use, No Respiratory Distress, Normal Breath Sounds, Other (Coarse breath sounds) Cardiovascular: No Edema, No JVD, No Murmur, No Gallop, Normal Peripheral Pulses, Regular Rate/Rhythm Breast Exam: Deferred Gastrointestinal: No Organomegaly, Non Tender, No Pulsatile Mass, Normal Bowel Sounds, Soft Genitalia: Deferred Pelvic: Deferred Rectal: Deferred Extremities: No calf tenderness, Normal capillary refill, Normal range of motion, Non-tender, No pedal edema Musculoskeletal : Apperance: Normal Neurologic: Alert, condenser tester II-XII nml as Tested, No Motor Deficits, Normal Affect, Normal Mood, No Sensory Deficits Cerebellar Function: NOT DONE Reflexes: NOT DONE Skin: Dry, Normal Color, Warm Peripheral Pulses: 3+ Radial (R), 3+ Radial (L) Lymphatic: No Adenopathy Was a procedure done? Was a procedure done?: No Differential Dx Differential Diagnosis: Anxiety, Asthma, Bronchitis, CHF, COPD X-Ray, Labs, Meds, VS Vital Signs Date Time Temp Pulse Resp B/P (MAP) Pulse Ox O2 Delivery O2 Flow Rate FiO2 06/27/25 12:46 89 22 121/90 (100) 95 06/27/25 12:46 89 22 95 Nasal Cannula* 2 28 06/27/25 12:18 97.9 92 20 138/100 99 97.9 06/27/25 12:18 91 Patient alert. Came in because of shortness a breath. Placed on oxygen. Blood pressure within normal limits. Heart rate within normal limits. Reviewed his previous visit. No swelling of lower extremity. Was given Lasix. Explained to the patient. Continue monitoring. Time of 1ST Reevaluation: 13: Reevaluation 1ST: Unchanged Patient Education/Counseling: Diagnosis, Treatment Family Education/Counseling: No Family Present SEPSIS Sepsis Screen Date sepsis recognized/suspect: Jun 27, 2025 Time Sepsis recognized/suspect: 1223 Recent Procedure: No On Antibiotic Therapy: No Respiratory Rate >20: No Heart Rate >90: Yes Temp<36 C (96.8 F) or >38.3 C: No SBP <90 or MAP <65 mmHG: No New Acute Mental Status Change: No Is the patient on CPAP, BIPAP,: No Physician Orders Electrocardigram (06/27/25 12:21) Troponin-I Hs (06/27/25 13:04) Complete Blood Count (06/27/25 13:04) Comprehensive Metabolic Panel (06/27/25 13:04) B-Type Natriuretic Peptide (06/27/25 13:04) Chest Portable (06/27/25 13:04) Urinalysis (06/27/25 13:04) Vital Signs Date Time Temp Pulse Resp B/P (MAP) Pulse Ox O2 Delivery O2 Flow Rate FiO2 06/27/25 12:46 89 22 121/90 (100) 95 06/27/25 12:46 89 22 95 Nasal Cannula* 2 28 06/27/25 12:18 97.9 92 20 138/100 99 97.9 06/27/25 12:18 91 Departure 1 Departure Time of Disposition: 13:16 Impression: Primary Impression: CHF (congestive heart failure) Qualified Codes: I50.43 - Acute on chronic combined systolic (congestive) and diastolic (congestive) heart failure Disposition: ADMITTED INPATIENT Admit to: Med Surg Condition: Guarded Critical Care Note Critical Care Time?: Yes (90 min-critical care time only) Stability Stability form required: No Heart Score Heart Score: Heart Score Response (Comments) Value History Moderate Suspicious 1 EKG Normal 0 Age 45-64 1 Risk Factors >3 or Hx ASHD 2 Troponin Normal limit 0 Total 4 I personally scribed for JULIAN WELCH MD ([email or web address]) on 06/27/25 at 12:27. Electronically submitted by Flaquito Romero ([email or web address]). JULIAN WELCH MD Jun 27, 2025 12:27
[2025-06-27 12:46] VITALS: PULSE 89; RESP 22; O2SAT 95
[2025-06-27 13:22] LABS: Hematocrit 44.2 % (41.0-53.0); Hemoglobin 13.9 g/dL (13.5-17.5); Mean Corpuscular Hemoglobin 25.6 pg (28.0-32.0); Mean Corpuscular Volume 81.5 fL (80.0-100.0); Nucleated Red Blood Cells % 0.1 %
[2025-06-27 13:40] LABS: Alanine Aminotransferase 27 U/L (7-40); Albumin 3.8 g/dL (3.2-4.8); Alkaline Phosphatase 108 U/L (46-116); Anion Gap 7 (5-15); BUN/Creatinine Ratio 24.8 (10.0-20.0); Bilirubin, Total 2.0 mg/dL (0.2-1.0); Blood Urea Nitrogen 25 mg/dL (9-23); Calcium 8.7 mg/dL (8.7-10.4); Carbon Dioxide 25 mmol/L (20-31); Chloride 105 mmol/L (98-107); Glucose 120 mg/dL (74-106); Potassium 4.4 mmol/L (3.5-5.1); Sodium 137 mmol/L (136-145); Total Protein 6.2 g/dL (5.7-8.2)
--- NOTE | 2025-06-27 13:42 | DVH ---
CHEST RADIOGRAPH Indication: sob Technique: Single frontal view of the chest was obtained Comparison: XY CHEST XRAY 1 VIEW on DOS: 06/21/25, XY CHEST PORTABLE on DOS: 06/17/25 FINDINGS: Lines and Tubes: Pacemaker in place unchanged from June 21, 2025. Lungs: Slight increased pulmonary vascular congestion Pleura: No effusion. No pneumothorax. Cardiomediastinal contours: Stable cardiomegaly. Bones: No acute osseous abnormality. IMPRESSION: 1. Stable cardiomegaly. 2. No change in position of pacemaker. 3. Slight increase in pulmonary vascular congestion compared to June 21, 2025.
[2025-06-27 13:48] VITALS: PULSE 92; RESP 22; O2SAT 90
--- NOTE | 2025-06-27 14:10 | ECG ---
[facility] Test Date: 2025-06-27 Test Time: 12:18:43 Pat Name: AARON GARZA Department: [facility] ED Patient ID: [id number] Room: 0218T Gender: M Rehabilitation Liaison: PATRICK : 1965 Requested By: JULIAN WELCH Order Number: [id number] Reading MD: Tristen Puckett Measurements Intervals [place] Rate: 91 P: 16 CT: 222 QRS: -54 QRSD: 141 T: 120 QT: 393 QTc: 484 Interpretive Statements Sinus rhythm Multiple ventricular premature complexes Prolonged CT interval Left bundle branch block Electronically Signed On 06-29-2025 18:44:29 PDT by Tristen Puckett Please click the below link to view image of tracing.
[2025-06-27] MEDS: FUROSEMIDE 40 MG/4 ML VIAL IV ONE (14:24)
[2025-06-27] MEDS: ACETAMINOPHEN 325 MG TAB PO PRN (14:58)
[2025-06-27] MEDS: LORazepam 2MG/ML-1ML VIAL IV ONE (14:58)
[2025-06-27 15:55] VITALS: BP 119/97; PULSE 100; RESP 22; TEMP 98.1; O2SAT 96
[2025-06-27 16:00] VITALS: RESP 22; O2SAT 96
--- NOTE | 2025-06-27 16:44 | DVHHP2 ---
History of Present Illness Reason for Visit: Shortness for breath History of Present Illness 59-year-old male presents for evaluation of shortness for breath. Patient endorses a two day history of worsening shortness for breath with associated substernal chest pressure. Has also noted bilateral lower extremity swelling. Patient reports being compliant with his furosemide. Denies cough, fever or chills. No other acute complaints reported. Past Medical History Dyslipidemia, hypertension, chronic kidney disease, congestive heart failure Past Surgical History Pacemaker Family History Noncontributory Smoke: No ALCOHOL: none Drugs: None Lives: with Family Review of Systems Review of Systems Review of systems are currently negative otherwise dressing HPI. Allergies: Coded Allergies: Ampicillin (Verified Allergy, Severe, 06/17/25) Medications Current Medications Medications Dose Ordered Sig/Justyna Route Start Time Stop Time Status Last Admin Dose Admin Furosemide 20 mg BIDD IV 06/27/25 18:00 Aspirin 81 mg DAILY PO 06/28/25 10:00 Atorvastatin Calcium 10 mg HS PO 06/27/25 22:00 Carvedilol 3.125 mg Q12HR PO 06/27/25 22:00 Empaglifozin 10 mg DAILY PO 06/28/25 10:00 Lisinopril 5 mg DAILY PO 06/28/25 10:00 Ondansetron HCl 4 mg Q4HP PRN IV 06/27/25 14:15 Acetaminophen 650 mg Q6HP PRN PO 06/27/25 14:15 06/27/25 14:58 650 MG Exam Vital Signs Vital Signs Date Time Temp Pulse Resp B/P (MAP) Pulse Ox O2 Delivery O2 Flow Rate FiO2 06/27/25 16:00 22 96 Non-Rebreather 10 N/A 06/27/25 14:24 125/98 06/27/25 13:48 92 06/27/25 13:48 98.1 98.1 Exam Gen: 59-year-old male in mild distress. Skin: Warm, dry, normal color and texture, no rash. HEENT: Normocephalic atraumatic, mucous membranes moist and pink. Neck: Cervical and supraclavicular nodes normal without enlargement, trachea is midline, thyroid gland is normal without masses. Pulmonary: Clear to auscultation and percussion bilaterally. Cardiac: Regular rate and rhythm. No murmur Abdomen: Soft, nontender, nondistended, bowel sounds present all 4 quadrants, no guarding, no rigidity, no organomegaly. Extremities: No cyanosis, clubbing, bilateral lower extremity plus one edema Neuro: Cranial nerves II through XII grossly intact, normal affect and speech, no focal motor deficits. Labs/Xrays ORDERING PHYSICIAN: GENESIS BRUNNER MD PROCEDURE(s): ECIDC - ECHO 2D MODE CARDIAC DOP REASON: chf ORDER NUMBER(s): [id number], ACCESSION NUMBER(s): [id number] APPROVED REPORT EXAM: Two-dimensional and M-mode echocardiogram with Doppler and color Doppler. Blood Pressure: 126/93 mmHg INDICATION Heart Failure RISK FACTORS Height: 5'10", Weight: 158 DIMENSIONS LVDd 6.7 (3.8-5.7cm) LA (2D) 6.1 (1.9-4.0cm) Aortic Root 3.7 (2.0- 3.7cm) LVDs 6.4 (2.5-4.0cm) LA (MM) (1.9-4.0cm) Aortic Cusp Exc 2.0 (1.5- 2.0cm) EF (%) 8.0 (55-70%) Rt. Atrium 5.8 (1.9-4.0cm) Asc. Aorta 3.8 cm IVSd 1.1 (0.7-1.1cm) RV (D) 5.6 (1.8-2.4cm) PWd 1.3 (0.7-1.1cm) Mitral Valve Mitral Mitral Stenosis E wave 1.30m/s MV Mean GR. 3mmHg A wave m/s MV Peak GR. 8mmHg E/A ratio 0.0 2D MVA cm2 Aortic Valve Aortic Valve Aortic Stenosis V1 0.87m/s AO Mean GR. 2mmHg V2 0.85m/s AO Peak GR. 3mmHg LVOT Diameter 2.2 (1.8-2.4cm) Doppler KERI 3.89cm2 Pulmonic Valve V2 0.59m/s Tricuspid Valve TR Velocity 1.98m/s RVSP 30mmHg Conclusion Technically good study. Sinus rhythm. Biatrial enlargement. Biventricular enlargement. Aortic root enlargement. The aortic valve is structurally normal. There was thickening of the anterior and posterior mitral leaflets but more so of the anterior leaflet. Markedly diminished excursion of the anterior mitral leaflet with thickening and a dense nodularity at the tip of the anterior mitral leaflet. There was diminished excursion of the posterior mitral leaflet as well without overt thickening and/or calcification. The tricuspid and pulmonic or structurally normal. Short axis views suggest no mitral stenosis. Diminished excursion of the leaflets secondary to poor cardiac output. Left ventricular function is markedly diminished. EF is a proximally 10% or less. Severe tricuspid regurgitation with a moderate mitral insufficiency. Pacing lead noted in RV. No masses or vegetations discernible. ORDERING PHYSICIAN: JULIAN WELCH MD PROCEDURE(s): CXRP - CHEST PORTABLE REASON: sob ORDER NUMBER(s): [id number], ACCESSION NUMBER(s): [id number] CHEST RADIOGRAPH Indication: sob Technique: Single frontal view of the chest was obtained Comparison: XY CHEST XRAY 1 VIEW on DOS: 06/21/25, XY CHEST PORTABLE on DOS: 06/17/25 FINDINGS: Lines and Tubes: Pacemaker in place unchanged from June 21, 2025. Lungs: Slight increased pulmonary vascular congestion Pleura: No effusion. No pneumothorax. Cardiomediastinal contours: Stable cardiomegaly. Bones: No acute osseous abnormality. IMPRESSION: 1. Stable cardiomegaly. 2. No change in position of pacemaker. 3. Slight increase in pulmonary vascular congestion compared to June 21, 2025. Labs Test 06/27/25 13:13 Range/Units White Blood Count 7.3 4.4-10.8 10^3/uL Red Blood Count 5.42 4.5-5.90 10^6/uL Hemoglobin 13.9 13.5-17.5 g/dL Hematocrit 44.2 41.0-53.0 % Mean Corpuscular Volume 81.5 80.0-100.0 fL Mean Corpuscular Hemoglobin 25.6 L 28.0-32.0 pg Mean Corpuscular Hemoglobin Concent 31.3 L 32.0-36.0 g/dL Red Cell Distribution Width 17.6 H 11.8-14.3 % Platelet Count 161 140-450 10^3/uL Mean Platelet Volume 7.7 6.9-10.8 fL Neutrophils (%) (Auto) 61.5 37.0-80.0 % Lymphocytes (%) (Auto) 23.2 10.0-50.0 % Monocytes (%) (Auto) 13.2 H 0.0-12.0 % Eosinophils (%) (Auto) 0.9 0.0-7.0 % Basophils (%) (Auto) 1.2 0.0-2.0 % Neutrophils # (Auto) 4.5 1.6-8.6 10 ^3/uL Lymphocytes # (Auto) 1.7 0.4-5.4 10 ^3/uL Monocytes # (Auto) 1.0 0-1.3 10 ^3/uL Eosinophils # (Auto) 0.1 0-0.8 10 ^3/uL Basophils # (Auto) 0.1 0-0.2 10 ^3/uL Nucleated Red Blood Cells 0.1 % Sodium Level 137 136-145 mmol/L Potassium Level 4.4 3.5-5.1 mmol/L Chloride Level 105 98-107 mmol/L Carbon Dioxide Level 25 20-31 mmol/L Anion Gap 7 5-15 Blood Urea Nitrogen 25 H 9-23 mg/dL Creatinine 1.01 0.700-1.30 mg/dL Glomerular Filtration Rate Calc 85 >90 mL/min BUN/Creatinine Ratio 24.8 H 10.0-20.0 Serum Glucose 120 H 74-106 mg/dL Calcium Level 8.7 8.7-10.4 mg/dL Total Bilirubin 2.0 H 0.2-1.0 mg/dL Aspartate Amino Transferase (AST) 29 13-40 U/L Alanine Aminotransferase (ALT) 27 7-40 U/L Alkaline Phosphatase 108 46-116 U/L Troponin I High Sensitivity 32 </=54 ng/L B-Type Natriuretic Peptide 2085.02 0-100 pg/mL Total Protein 6.2 5.7-8.2 g/dL Albumin 3.8 3.2-4.8 g/dL SEPSIS Sepsis Screen Date sepsis recognized/suspect: Jun 27, 2025 Time Sepsis recognized/suspect: 1246 Recent Procedure: No On Antibiotic Therapy: No Respiratory Rate >20: No Heart Rate >90: No Temp<36 C (96.8 F) or >38.3 C: No SBP <90 or MAP <65 mmHG: No New Acute Mental Status Change: No Is the patient on CPAP, BIPAP,: No Physician Orders Chest Portable (06/27/25 13:04) Urinalysis (06/27/25 13:04) Admit (06/27/25 14:01) Furosemide Injection (Lasix Injection) (06/27/25 18:00) Aspirin Tablet (06/28/25 10:00) Atorvastatin (Lipitor) (06/27/25 22:00) Carvedilol Tablet (Coreg Tablet) (06/27/25 22:00) Empagliflozin (Jardiance) (06/28/25 10:00) Lisinopril Tablet (Zestril Tablet) (06/28/25 10:00) Basic Metabolic Panel (06/28/25 04:00) Ondansetron Hcl (Zofran) (06/27/25 14:15) Cardiac Diet-2gna,Lofat,Lochol (06/27/25 Dinner) Condition: Stable (06/27/25 14:03) Acetaminophen Tablet (Tylenol Tablet) (06/27/25 14:15) Bedrest With Bathroom Privileg (06/27/25 14:03) Mrsa Screen (06/27/25 15:32) Vital Signs Date Time Temp Pulse Resp B/P (MAP) Pulse Ox O2 Delivery O2 Flow Rate FiO2 06/27/25 16:00 22 96 Non-Rebreather 10 N/A 06/27/25 14:24 125/98 06/27/25 13:48 92 22 90 Nasal Cannula* 2 28 06/27/25 13:48 98.1 92 28 114/85 (95) 90 98.1 06/27/25 13:15 93 06/27/25 12:46 89 22 121/90 (100) 95 06/27/25 12:46 89 22 95 Nasal Cannula* 2 28 06/27/25 12:18 97.9 92 20 138/100 99 97.9 06/27/25 12:18 91 Laboratory Tests Test 06/27/25 13:13 White Blood Count 7.3 10^3/uL (4.4-10.8) Medications Medications Dose Ordered Sig/Justyna Route Start Time Stop Time Status Last Admin Dose Admin Acetaminophen 650 mg Q6HP PRN PO 06/27/25 14:15 06/27/25 14:58 650 MG Furosemide 40 mg ONCE ONCE IV 06/27/25 13:30 06/27/25 13:31 DC 06/27/25 14:24 40 MG Lorazepam 1 mg ONCE ONCE IV 06/27/25 14:30 06/27/25 14:31 DC 06/27/25 14:58 1 MG Assessment/Plan Assessment/Plan Assessment Acute on chronic congestive heart failure Hypertension Chronic kidney disease Status post pacemaker Plan Admit the patient to telemetry to the hospitalist IV Lasix Resume home medications Continue treatment per orders. Plan discussed with: Patient My Orders Orders - VIDHYA العراقي Procedure Category Date Status Time Admit ADMIT 06/27/25 Transmitted 14:01 Furosemide Injection PHA 06/27/25 In Process (Lasix Injection) 18:00 Aspirin Tablet PHA 06/28/25 In Process 10:00 Atorvastatin (Lipitor) PHA 06/27/25 In Process 22:00 Carvedilol Tablet PHA 06/27/25 In Process (Coreg Tablet) 22:00 Empagliflozin PHA 06/28/25 In Process (Jardiance) 10:00 Lisinopril Tablet PHA 06/28/25 In Process (Zestril Tablet) 10:00 Basic Metabolic Panel LAB 06/28/25 Verified 04:00 Ondansetron Hcl PHA 06/27/25 In Process (Zofran) 14:15 Cardiac DIET 06/27/25 Transmitted Diet-2gna,Lofat,Lochol Dinner Condition: Stable RANI 06/27/25 In Process 14:03 Acetaminophen Tablet PHA 06/27/25 In Process (Tylenol Tablet) 14:15 Bedrest With Bathroom RANI 06/27/25 In Process Privileg 14:03 Mrsa Screen YOVANI 06/27/25 In Process 15:32 Date of Service: Jun 27, 2025 Billing Provider: VIDHYA العراقي Common Visit Codes: 82692-[id number] INP/OBS CARE (HIGH) VIDHYA العراقي Jun 27, 2025 16:44
[2025-06-27 17:00] VITALS: BP 133/95; PULSE 70; RESP 18; TEMP 97.8; O2SAT 97
[2025-06-27] MEDS: FUROSEMIDE 20 MG/2 ML VIAL IV SCH (17:47)
[2025-06-27] MEDS ORDERED: SACU1TAB PO (18:48)
[2025-06-27 19:42] LABS: Urine Protein, UAD Negative (Negative)
[2025-06-27 21:00] VITALS: BP 109/77; PULSE 60; RESP 20; TEMP 97.8; O2SAT 20
[2025-06-27] MEDS: ATORVASTATIN 20 MG TAB PO SCH (22:04)
[2025-06-27] MEDS: CARVEDILOL 3.125 MG TAB PO SCH (22:05)
[2025-06-28] VITALS (7 sets, daily range): BP systolic 104–122; BP diastolic 63–85; PULSE 77–91; RESP 18–20; TEMP 97.4–98.3; O2SAT 91–99
[2025-06-28 07:04] LABS: Anion Gap 10 (5-15); Carbon Dioxide 25 mmol/L (20-31); Chloride 105 mmol/L (98-107); Potassium 4.4 mmol/L (3.5-5.1); Sodium 140 mmol/L (136-145)
[2025-06-28 07:10] LABS: BUN/Creatinine Ratio 19.6 (10.0-20.0); Glucose 86 mg/dL (74-106)
[2025-06-28 07:19] LABS: Blood Urea Nitrogen 27 mg/dL (9-23); Calcium 8.5 mg/dL (8.7-10.4)
[2025-06-28] MEDS: LISINOPRIL 5 MG TAB PO SCH (10:00)
[2025-06-28] MEDS: EMPAGLIFLOZIN 10 MG TAB PO SCH (10:06)
--- NOTE | 2025-06-28 12:19 | DVHPN2 ---
Subjective The patient is seen and examined at bedside. Complain of being tired. Complain of shortness for breath. Complain of abdominal pain. His ejection fraction is 10%. Reviewed: Care Plan, H&P, Labs, Medications, Previous Orders, Radiology Changes from previous H/P or p: No Changes Objective Vitals Vital Signs Date Time Temp Pulse Resp B/P (MAP) Pulse Ox O2 Delivery O2 Flow Rate FiO2 06/28/25 11:05 83 100/78 06/28/25 09:00 97.4 18 92 97.4 06/28/25 08:00 Nasal Cannula* 6 44 Intake/Output Intake and Output 06/28/25 07:00 Intake Total 650 ml Output Total 400 ml Balance 250 ml Intake Oral 650 ml Output Urine Total 400 ml General Appearance: Alert, Oriented X3, Cooperative, No acute distress HEENT: Atraumatic, PERRLA, EOMI, Mucous membr. moist/pink Neck: Supple Lungs: Clear to auscultation, Normal air movement Cardiovascular: Regular rate, Normal S1, Normal S2, No murmurs, Gallops, Rubs Abdomen: Normal bowel sounds, Soft, No tenderness Neuro: Cranial nerves 3-12 NL Psych/Mental Status: Mental status NL Medications Current Medications Medications Dose Ordered Sig/Justyna Route Start Time Stop Time Status Last Admin Dose Admin Furosemide 20 mg BIDD IV 06/27/25 18:00 06/28/25 05:16 20 MG Aspirin 81 mg DAILY PO 06/28/25 10:00 06/28/25 10:06 81 MG Atorvastatin Calcium 10 mg HS PO 06/27/25 22:00 06/27/25 22:04 10 MG Carvedilol 3.125 mg Q12HR PO 06/27/25 22:00 06/28/25 10:05 3.125 MG Empaglifozin 10 mg DAILY PO 06/28/25 10:00 06/28/25 10:06 10 MG Lisinopril 5 mg DAILY PO 06/28/25 10:00 Ondansetron HCl 4 mg Q4HP PRN IV 06/27/25 14:15 Acetaminophen 650 mg Q6HP PRN PO 06/27/25 14:15 06/28/25 10:14 650 MG Laboratory Results Laboratory Tests 06/27/25 13:13 06/28/25 05:53 Chemistry Test 06/27/25 13:13 06/28/25 05:53 Albumin 3.8 g/dL (3.2-4.8) Calcium Level 8.7 mg/dL (8.7-10.4) 8.5 mg/dL (8.7-10.4) L Total Protein 6.2 g/dL (5.7-8.2) Lipid panel Test 06/27/25 13:13 Lipase 45 U/L (12-53) Cardiac Markers Test 06/27/25 13:13 B-Type Natriuretic Peptide 2085.02 pg/mL (0-100) LFT Test 06/27/25 13:13 Alanine Aminotransferase (ALT) 27 U/L (7-40) Alkaline Phosphatase 108 U/L (46-116) Aspartate Amino Transferase (AST) 29 U/L (13-40) Total Bilirubin 2.0 mg/dL (0.2-1.0) H Urinalysis Test 06/27/25 18:45 Urine Color Colorless (Yellow) Urine Clarity Clear (Clear) Urine pH 5.5 (5.0-9.0) Urine Specific [place] 1.008 (1.001-1.035) Urine Protein Negative (Negative) Urine Ketones Negative (Negative) Urine Blood Negative /uL (Negative) Urine Nitrite Negative (Negative) Urine Bilirubin Negative (Negative) Urine Urobilinogen Normal mg/dL (Negative) Urine Leukocyte Esterase Negative /uL (Negative) Urine RBC 1 /hpf (0 - 3) Urine Microscopic WBC /HPF (0-3) Urine Squamous Epithelial Cells None seen /hpf (<5) Urine Bacteria None seen /hpf (None Seen) Urine Glucose Normal mg/dL (Normal) Labs and/or images reviewed: Labs reviewed by me Assessment/Plan Assessment/Plan Acute on chronic systolic congestive heart failure Cardiomyopathy with EF of 10% History of methamphetamine abuse Hypertension Chronic kidney disease stage III Status post pacemaker Abdominal pain with distended probable secondary to edema or third spacing due to congestive heart failure Continuing current management. Continuing with IV Lasix. Continuing with hypertensive medication. Continuing with Jardiance and Coreg We will get the KUB to further evaluate his abdominal pain This medical document was created using an electronic medical record system with M[employer]M [employer]Ka[employer] direct computerized dictation system. Although this document has been carefully reviewed, there may still be some phonetic and typographical errors. These areas are purely typographical due to imperfections of the software programs, and do not reflect any compromise in the patient's medical care. Plan discussed with: Patient Date of Service: Jun 28, 2025 Billing Provider: YAS HAUSER MD Common Visit Codes: [id number] INP/OBS CARE(HIGH) YAS HAUSER MD Jun 28, 2025 12:19
[2025-06-28] MEDS: FUROSEMIDE 40 MG/4 ML VIAL IV ONE (14:48)
[2025-06-29] VITALS (14 sets, daily range): BP systolic 106–116; BP diastolic 80–96; PULSE 85–92; RESP 16–18; TEMP 97.6–98; O2SAT 93–100
[2025-06-29] MEDS: SENNA 8.6 MG TAB PO SCH (03:20)
[2025-06-29] MEDS ORDERED: SENNA 8.6 MG TAB PO SCH (10:00)
--- NOTE | 2025-06-29 14:38 | DVHPN2 ---
Subjective The patient is seen and examined at bedside. Complain of being very tired. Complain of abdominal pain. Complain of shortness for breath. Reviewed: Care Plan, H&P, Labs, Medications, Previous Orders, Radiology Changes from previous H/P or p: No Changes Objective Vitals Vital Signs Date Time Temp Pulse Resp B/P (MAP) Pulse Ox O2 Delivery O2 Flow Rate FiO2 06/29/25 14:01 97.8 87 17 116/96 (103) 93 97.8 06/29/25 08:30 Nasal Cannula* 6 44 Intake/Output Intake and Output 06/29/25 07:00 Intake Total 780 ml Output Total 700 ml Balance 80 ml Intake Oral 780 ml Output Urine Total 700 ml # Voids 3 # Bowel Movements 1 General Appearance: Alert, Oriented X3, Cooperative, No acute distress HEENT: Atraumatic, PERRLA, EOMI, Mucous membr. moist/pink Neck: Supple Lungs: Clear to auscultation, Normal air movement Cardiovascular: Regular rate, Normal S1, Normal S2, No murmurs, Gallops, Rubs Abdomen: Normal bowel sounds, Soft, No tenderness Neuro: Cranial nerves 3-12 NL Psych/Mental Status: Mental status NL Medications Current Medications Medications Dose Ordered Sig/Justyna Route Start Time Stop Time Status Last Admin Dose Admin Furosemide 20 mg BIDD IV 06/27/25 18:00 06/29/25 05:49 20 MG Aspirin 81 mg DAILY PO 06/28/25 10:00 06/29/25 10:22 81 MG Atorvastatin Calcium 10 mg HS PO 06/27/25 22:00 06/28/25 22:40 10 MG Carvedilol 3.125 mg Q12HR PO 06/27/25 22:00 06/29/25 10:22 3.125 MG Empaglifozin 10 mg DAILY PO 06/28/25 10:00 06/29/25 10:22 10 MG Lisinopril 5 mg DAILY PO 06/28/25 10:00 Ondansetron HCl 4 mg Q4HP PRN IV 06/27/25 14:15 Acetaminophen 650 mg Q6HP PRN PO 06/27/25 14:15 06/28/25 10:14 650 MG Sennosides 17.2 mg DAILY PO 06/29/25 03:30 06/29/25 03:20 17.2 MG Laboratory Results Laboratory Tests 06/27/25 13:13 06/28/25 05:53 Urinalysis Test 06/27/25 18:45 Urine Color Colorless (Yellow) Urine Clarity Clear (Clear) Urine pH 5.5 (5.0-9.0) Urine Specific [place] 1.008 (1.001-1.035) Urine Protein Negative (Negative) Urine Ketones Negative (Negative) Urine Blood Negative /uL (Negative) Urine Nitrite Negative (Negative) Urine Bilirubin Negative (Negative) Urine Urobilinogen Normal mg/dL (Negative) Urine Leukocyte Esterase Negative /uL (Negative) Urine RBC 1 /hpf (0 - 3) Urine Microscopic WBC /HPF (0-3) Urine Squamous Epithelial Cells None seen /hpf (<5) Urine Bacteria None seen /hpf (None Seen) Urine Glucose Normal mg/dL (Normal) Microbiology Microbiology Date/Time Source Procedure Growth Status 06/27/25 15:40 Nose MRSA Screen - Final Complete Labs and/or images reviewed: Labs reviewed by me Assessment/Plan Assessment/Plan Acute on chronic systolic congestive heart failure Cardiomyopathy with EF of 10% History of methamphetamine abuse Hypertension Chronic kidney disease stage III Status post pacemaker Abdominal pain with distended probable secondary to edema or third spacing due to congestive heart failure Continuing current management. Continuing with IV Lasix. I will change Lasix to 40 mg IV b.i.d. Continuing with hypertensive medication. Continuing with Jardiance and Coreg We will follow up with ISATU to further evaluate his abdominal pain This medical document was created using an electronic medical record system with [employer] direct computerized dictation system. Although this document has been carefully reviewed, there may still be some phonetic and typographical errors. These areas are purely typographical due to imperfections of the software programs, and do not reflect any compromise in the patient's medical care. Plan discussed with: Patient Date of Service: Jun 29, 2025 Billing Provider: YAS HAUSER MD Common Visit Codes: [id number] INP/OBS CARE(HIGH) YAS HAUSER MD Jun 29, 2025 14:38
[2025-06-29] MEDS: ALBUTEROL SULF 2.5 MG/0.5ML(0.5%) NEB SOLN NEB PRN (15:32)
[2025-06-29] MEDS: IPRATROPIUM BROM 0.5 MG/2.5ML INH SOL NEB PRN (15:32)
[2025-06-29] MEDS: POLYETHYLENE GLYCOL 17 GM PWDR PO ONE (15:58)
[2025-06-29] MEDS: ZOLPIDEM TARTRATE 5 MG TAB PO ONE (23:39)
[2025-06-30] VITALS (15 sets, daily range): BP systolic 106–133; BP diastolic 80–98; PULSE 67–97; RESP 16–19; TEMP 96.5–97.7; O2SAT 94–99
--- NOTE | 2025-06-30 05:48 | DVH ---
Indication: rule out SBO Technique: 2 views of the abdomen were obtained. Comparison: None IMPRESSION: Bowel-gas pattern is nonobstructed. There is moderate intracolonic stool. No pathologic air-fluid le vels or evidence of free air.
[2025-06-30] MEDS: FUROSEMIDE 40 MG/4 ML VIAL IV SCH (06:30)
[2025-06-30 08:06] LABS: Hemoglobin 14.8 g/dL (13.5-17.5)
[2025-06-30 08:09] LABS: Hematocrit 46.9 % (41.0-53.0); Mean Corpuscular Hemoglobin 25.7 pg (28.0-32.0); Mean Corpuscular Volume 81.6 fL (80.0-100.0); Nucleated Red Blood Cells % 0.0 %
[2025-06-30 08:14] LABS: Chloride 100 mmol/L (98-107); Potassium 4.9 mmol/L (3.5-5.1); Sodium 140 mmol/L (136-145)
[2025-06-30 08:15] LABS: Anion Gap 9 (5-15); Calcium 9.0 mg/dL (8.7-10.4); Carbon Dioxide 31 mmol/L (20-31)
[2025-06-30 08:20] LABS: BUN/Creatinine Ratio 30.1 (10.0-20.0); Blood Urea Nitrogen 47 mg/dL (9-23); Glucose 117 mg/dL (74-106)
--- NOTE | 2025-06-30 22:08 | DVHPN2 ---
Subjective The patient is seen and examined at bedside. Complain of being very tired. Complain of abdominal pain, however patient does have bowel movement and feel little bit better. Complain of shortness for breath. Reviewed: Care Plan, H&P, Labs, Medications, Previous Orders, Radiology Changes from previous H/P or p: No Changes Objective Vitals Vital Signs Date Time Temp Pulse Resp B/P (MAP) Pulse Ox O2 Delivery O2 Flow Rate FiO2 06/30/25 21:46 100 118/85 06/30/25 21:26 16 99 06/30/25 21:24 Nasal Cannula* 5 40 06/30/25 21:00 97.7 97.7 Intake/Output Intake and Output 06/30/25 07:00 Intake Total 1475 ml Output Total 2000 ml Balance -525 ml Intake Oral 1475 ml Output Urine Total 2000 ml General Appearance: Alert, Oriented X3, Cooperative, No acute distress HEENT: Atraumatic, PERRLA, EOMI, Mucous membr. moist/pink Neck: Supple Lungs: Clear to auscultation, Normal air movement Cardiovascular: Regular rate, Normal S1, Normal S2, No murmurs, Gallops, Rubs Abdomen: Normal bowel sounds, Soft, No tenderness Neuro: Cranial nerves 3-12 NL Psych/Mental Status: Mental status NL Medications Current Medications Medications Dose Ordered Sig/Justyna Route Start Time Stop Time Status Last Admin Dose Admin Aspirin 81 mg DAILY PO 06/28/25 10:00 06/30/25 09:31 81 MG Atorvastatin Calcium 10 mg HS PO 06/27/25 22:00 06/30/25 21:46 10 MG Carvedilol 3.125 mg Q12HR PO 06/27/25 22:00 06/30/25 21:46 3.125 MG Empaglifozin 10 mg DAILY PO 06/28/25 10:00 06/30/25 09:30 10 MG Lisinopril 5 mg DAILY PO 06/28/25 10:00 Ondansetron HCl 4 mg Q4HP PRN IV 06/27/25 14:15 Acetaminophen 650 mg Q6HP PRN PO 06/27/25 14:15 06/28/25 10:14 650 MG Sennosides 17.2 mg DAILY PO 06/29/25 03:30 06/30/25 09:30 17.2 MG Ipratropium [place] 0.5 mg Q6HPRN PRN NEB 06/29/25 15:15 06/30/25 21:23 0.5 MG Albuterol 1.25 mg Q6HPRN PRN NEB 06/29/25 15:15 06/30/25 21:24 1.25 MG Furosemide 40 mg BIDD IV 06/30/25 06:00 06/30/25 17:27 40 MG Laboratory Results Laboratory Tests 06/30/25 07:13 Chemistry Test 06/30/25 07:13 Calcium Level 9.0 mg/dL (8.7-10.4) Urinalysis Test 06/27/25 18:45 Urine Color Colorless (Yellow) Urine Clarity Clear (Clear) Urine pH 5.5 (5.0-9.0) Urine Specific [place] 1.008 (1.001-1.035) Urine Protein Negative (Negative) Urine Ketones Negative (Negative) Urine Blood Negative /uL (Negative) Urine Nitrite Negative (Negative) Urine Bilirubin Negative (Negative) Urine Urobilinogen Normal mg/dL (Negative) Urine Leukocyte Esterase Negative /uL (Negative) Urine RBC 1 /hpf (0 - 3) Urine Microscopic WBC /HPF (0-3) Urine Squamous Epithelial Cells None seen /hpf (<5) Urine Bacteria None seen /hpf (None Seen) Urine Glucose Normal mg/dL (Normal) Microbiology Microbiology Date/Time Source Procedure Growth Status 06/27/25 15:40 Nose MRSA Screen - Final Complete Labs and/or images reviewed: Labs reviewed by me, Image(s) reviewed by me (KUB showed: Bowel-gas pattern is nonobstructed. There is moderate intracolonic stool. No pathologic air-fluid levels or evidence of free air.) Assessment/Plan Assessment/Plan Acute on chronic systolic congestive heart failure Cardiomyopathy with EF of 10% History of methamphetamine abuse Hypertension Chronic kidney disease stage III Status post pacemaker Abdominal pain with distended probable secondary to edema or third spacing due to congestive heart failure Constipation Continuing current management. Continuing with IV Lasix. I will change Lasix to 40 mg IV b.i.d. Continuing with hypertensive medication. Continuing with Jardiance and Coreg KUB showed: Bowel-gas pattern is nonobstructed. There is moderate intracolonic stool. No pathologic air-fluid levels or evidence of free air. We will give Colace and MiraLax as needed This medical document was created using an electronic medical record system with [employer] direct computerized dictation system. Although this document has been carefully reviewed, there may still be some phonetic and typographical errors. These areas are purely typographical due to imperfections of the software programs, and do not reflect any compromise in the patient's medical care. Plan discussed with: Patient My Orders Orders - YAS HAUSER MD Procedure Category Date Status Time Complete Blood Count LAB 07/01/25 Verified 05:00 Complete Blood Count LAB 07/02/25 Verified 05:00 Complete Blood Count LAB 07/03/25 Verified 05:00 Complete Blood Count LAB 07/04/25 Verified 05:00 Basic Metabolic Panel LAB 07/01/25 Verified 05:00 Basic Metabolic Panel LAB 07/02/25 Verified 05:00 Basic Metabolic Panel LAB 07/03/25 Verified 05:00 Basic Metabolic Panel LAB 07/04/25 Verified 05:00 Kub Abdomen Single XY 06/29/25 Resulted View 23:01 Furosemide Injection PHA 06/30/25 In Process (Lasix Injection) 06:00 Date of Service: Jun 30, 2025 Billing Provider: YAS HAUSER MD Common Visit Codes: [id number] INP/OBS CARE(HIGH) YAS HAUSER MD Jun 30, 2025 22:08
[2025-07-01] VITALS (13 sets, daily range): BP systolic 106–135; BP diastolic 76–95; PULSE 77–105; RESP 17–22; TEMP 97.5–97.8; O2SAT 94–99
[2025-07-01] MEDS: ZOLPIDEM TARTRATE 5 MG TAB PO ONE ×2 (00:09→00:11)
[2025-07-01] MEDS: FUROSEMIDE 40 MG/4 ML VIAL IV SCH (05:12)
[2025-07-01] MEDS: ONDANSETRON HCL 4 MG/2 ML VIAL IV PRN (06:51)
[2025-07-01 07:05] LABS: Hemoglobin 14.0 g/dL (13.5-17.5); Mean Corpuscular Hemoglobin 25.8 pg (28.0-32.0); Nucleated Red Blood Cells % 0.1 %
[2025-07-01 07:06] LABS: Chloride 100 mmol/L (98-107); Potassium 4.0 mmol/L (3.5-5.1)
[2025-07-01 07:07] LABS: Anion Gap 10 (5-15); Carbon Dioxide 26 mmol/L (20-31); Hematocrit 43.7 % (41.0-53.0); Mean Corpuscular Volume 80.3 fL (80.0-100.0)
[2025-07-01 07:08] LABS: Calcium 8.5 mg/dL (8.7-10.4); Sodium 136 mmol/L (136-145)
[2025-07-01 07:12] LABS: BUN/Creatinine Ratio 22.8 (10.0-20.0); Glucose 98 mg/dL (74-106)
[2025-07-01 07:18] LABS: Blood Urea Nitrogen 36 mg/dL (9-23)
--- NOTE | 2025-07-01 11:16 | DVHPN2 ---
Subjective The patient is seen and examined at bedside. Complain of shortness of breath. Reviewed: Care Plan, H&P, Labs, Medications, Previous Orders, Radiology Changes from previous H/P or p: No Changes Objective Vitals Vital Signs Date Time Temp Pulse Resp B/P (MAP) Pulse Ox O2 Delivery O2 Flow Rate FiO2 07/01/25 09:01 118/87 07/01/25 09:00 94 07/01/25 04:52 97.7 19 94 97.7 06/30/25 21:24 Nasal Cannula* 5 40 Intake/Output Intake and Output 07/01/25 07:00 Intake Total 1350 ml Output Total 1900 ml Balance -550 ml Intake Oral 1350 ml Output Urine Total 1900 ml # Bowel Movements 4 General Appearance: Alert, Oriented X3, Cooperative, No acute distress HEENT: Atraumatic, PERRLA, EOMI, Mucous membr. moist/pink Neck: Supple Lungs: Clear to auscultation, Normal air movement Cardiovascular: Regular rate, Normal S1, Normal S2, No murmurs, Gallops, Rubs Abdomen: Normal bowel sounds, Soft, No tenderness Neuro: Cranial nerves 3-12 NL Psych/Mental Status: Mental status NL Medications Current Medications Medications Dose Ordered Sig/Justyna Route Start Time Stop Time Status Last Admin Dose Admin Aspirin 81 mg DAILY PO 06/28/25 10:00 07/01/25 09:01 81 MG Atorvastatin Calcium 10 mg HS PO 06/27/25 22:00 06/30/25 21:46 10 MG Carvedilol 3.125 mg Q12HR PO 06/27/25 22:00 07/01/25 09:00 3.125 MG Empaglifozin 10 mg DAILY PO 06/28/25 10:00 07/01/25 09:00 10 MG Lisinopril 5 mg DAILY PO 06/28/25 10:00 Ondansetron HCl 4 mg Q4HP PRN IV 06/27/25 14:15 07/01/25 06:51 4 MG Acetaminophen 650 mg Q6HP PRN PO 06/27/25 14:15 06/28/25 10:14 650 MG Sennosides 17.2 mg DAILY PO 06/29/25 03:30 07/01/25 09:00 17.2 MG Ipratropium [place] 0.5 mg Q6HPRN PRN NEB 06/29/25 15:15 07/01/25 06:48 0.5 MG Albuterol 1.25 mg Q6HPRN PRN NEB 06/29/25 15:15 07/01/25 06:48 1.25 MG Furosemide 20 mg BIDD IV 07/01/25 06:00 07/01/25 05:12 20 MG Laboratory Results Laboratory Tests 07/01/25 04:08 Chemistry Test 07/01/25 04:08 Calcium Level 8.5 mg/dL (8.7-10.4) L Urinalysis Test 06/27/25 18:45 Urine Color Colorless (Yellow) Urine Clarity Clear (Clear) Urine pH 5.5 (5.0-9.0) Urine Specific [place] 1.008 (1.001-1.035) Urine Protein Negative (Negative) Urine Ketones Negative (Negative) Urine Blood Negative /uL (Negative) Urine Nitrite Negative (Negative) Urine Bilirubin Negative (Negative) Urine Urobilinogen Normal mg/dL (Negative) Urine Leukocyte Esterase Negative /uL (Negative) Urine RBC 1 /hpf (0 - 3) Urine Microscopic WBC /HPF (0-3) Urine Squamous Epithelial Cells None seen /hpf (<5) Urine Bacteria None seen /hpf (None Seen) Urine Glucose Normal mg/dL (Normal) Microbiology Microbiology Date/Time Source Procedure Growth Status 06/27/25 15:40 Nose MRSA Screen - Final Complete Labs and/or images reviewed: Labs reviewed by me Assessment/Plan Assessment/Plan Acute on chronic systolic congestive heart failure Cardiomyopathy with EF of 10% History of methamphetamine abuse Hypertension Chronic kidney disease stage III Status post pacemaker Abdominal pain with distended probable secondary to edema or third spacing due to congestive heart failure Constipation Acute kidney injury Continuing current management. Continuing with IV Lasix. I will change Lasix to 20 mg IV b.i.d. Nephrology consult Continuing with hypertensive medication. Continuing with Jardiance and Coreg KUB showed: Bowel-gas pattern is nonobstructed. There is moderate intracolonic stool. No pathologic air-fluid levels or evidence of free air. We will give Colace and MiraLax as needed This medical document was created using an electronic medical record system with [employer] direct computerized dictation system. Although this document has been carefully reviewed, there may still be some phonetic and typographical errors. These areas are purely typographical due to imperfections of the software programs, and do not reflect any compromise in the patient's medical care. Plan discussed with: Patient My Orders Orders - YAS HAUSER MD Procedure Category Date Status Time Furosemide Injection PHA 07/01/25 In Process (Lasix Injection) 06:00 Date of Service: Jul 01, 2025 Billing Provider: YAS HAUSER MD Common Visit Codes: [id number] INP/OBS CARE(HIGH) YAS HAUSER MD Jul 01, 2025 11:16
[2025-07-01] MEDS: TEMAZEPAM 15 MG CAP PO ONE (23:09)
[2025-07-02] VITALS (15 sets, daily range): BP systolic 94–122; BP diastolic 69–94; PULSE 76–97; RESP 16–22; TEMP 97.6–98.1; O2SAT 89–98
--- NOTE | 2025-07-02 02:02 | DVH ---
INDICATION: MARTA TECHNIQUE: Multiple real-time sonographic images of the kidneys and urinary bladder were obtained. COMPARISON: None FINDINGS: The right kidney measures 11.48 cm in length. There is increased renal echogenicity and decreased co rtical thickness. No hydronephrosis or large masses/calculi are seen. The left kidney measures 12.28 cm in length. There is increased renal echogenicity and decreased rj ical thickness. No hydronephrosis or large masses/calculi are seen. The urinary bladder is contracted. There are incompletely assessed bilateral pleural effusions. IMPRESSION: 1. Findings as above suggesting medical renal disease. 2. Incompletely assessed bilateral pleural effusions.
[2025-07-02 07:09] LABS: Hematocrit 41.7 % (41.0-53.0); Hemoglobin 13.4 g/dL (13.5-17.5); Mean Corpuscular Hemoglobin 25.9 pg (28.0-32.0); Mean Corpuscular Volume 80.5 fL (80.0-100.0); Nucleated Red Blood Cells % 0.1 %
[2025-07-02 07:21] LABS: Anion Gap 10 (5-15); Carbon Dioxide 27 mmol/L (20-31); Chloride 99 mmol/L (98-107); Potassium 3.9 mmol/L (3.5-5.1); Sodium 136 mmol/L (136-145)
[2025-07-02 07:22] LABS: Calcium 8.5 mg/dL (8.7-10.4)
[2025-07-02 07:27] LABS: BUN/Creatinine Ratio 25.5 (10.0-20.0); Glucose 95 mg/dL (74-106); Magnesium 2.2 mg/dL (1.6-2.6)
[2025-07-02 07:34] LABS: Blood Urea Nitrogen 37 mg/dL (9-23)
--- NOTE | 2025-07-02 08:34 | DVHCONRES ---
Date Seen: Jul 02, 2025 Resident Creating Document: ANA MARTINEZ RESDIENT History of Present Illness 59-year-old male with past medical history of dyslipidemia, hypertension, chronic kidney disease, congestive heart failure and status pacemaker placement, presents for evaluation of shortness for breath. Patient endorses a two day history of worsening shortness for breath with associated substernal chest pressure. Has also noted bilateral lower extremity swelling. Patient reports being compliant with his furosemide. Denies cough, fever or chills. No other acute complaints reported. r Family History: FH: bladder cancer G8 MOTHER, , Onset:Unknown FH: heart attack G8 FATHER, , Onset:Unknown Allergies: Coded Allergies: Ampicillin (Verified Allergy, Severe, 06/17/25) Home Meds Reported Medications Sacubitril-Valsartan (Entresto 24-26 mg) 1 Tab Tab, 1 TAB PO DAILY, TAB 06/27/25 Empagliflozin (Jardiance) 10 Mg Tab, 10 MG PO DAILY, TAB 06/17/25 Carvedilol (COREG) 3.125 Mg Tab, 3.125 MG OR BID, TAB 06/17/25 Atorvastatin Calcium (Lipitor) 10 Mg Tab, 1 TAB PO QPM, #90 TAB 1 Refill 06/17/25 Aspirin (Aspirin Adult Low Dose) 81 Mg Tab, 1 TAB PO DAILY 06/17/25 Senna (Senna) 8.6 Mg Tab, 2 TAB PO DAILY 06/17/25 Furosemide (Furosemide) 20 Mg Tab, 1 TAB PO DAILY 06/17/25 Discontinued Reported Medications Lisinopril (Lisinopril) 2.5 Mg Tab, 1 TAB PO DAILY, #30 TAB 5 Refills 06/17/25 Review of Systems Patient seen and examined at the bedside. Patient is still complaining of mild shortness of breath. Vital Signs Vital Signs Date Time Temp Pulse Resp B/P (MAP) Pulse Ox O2 Delivery O2 Flow Rate FiO2 07/02/25 08:04 96 18 97 Nasal Cannula* 6 44 07/02/25 07:57 97.6 117/78 (91) 97.6 Physical Exam General Appearance: Alert, Oriented X3, Cooperative, No acute distress HEENT: Atraumatic, PERRLA, EOMI, Mucous membrane moist/pink Respiratory: Mild bilateral crackles Cardiovascular: Regular rate, Normal S1, Normal S2, No murmurs, no chest wall tenderness Abdominal: Normal bowel sounds, Soft, No tenderness, No hepatospenomegaly, No masses Extremities: Bilateral trace edema Skin: No rashes, No breakdown, No significant lesion Neuro: Normal gait, Normal speech, Strength at 5/5 X4 ext, Normal tone, Sensation intact, Cranial nerves 3-12 NL, Reflexes 2+ Psych/Mental Status: Mental status NL, Mood NL Labs/Diagnostic Data Labs Test 07/02/25 06:13 06/27/25 18:45 06/27/25 13:13 Range/Units White Blood Count 7.6 4.4-10.8 10^3/uL Red Blood Count 5.19 4.5-5.90 10^6/uL Hemoglobin 13.4 L 13.5-17.5 g/dL Hematocrit 41.7 41.0-53.0 % Mean Corpuscular Volume 80.5 80.0-100.0 fL Mean Corpuscular Hemoglobin 25.9 L 28.0-32.0 pg Mean Corpuscular Hemoglobin Concent 32.1 32.0-36.0 g/dL Red Cell Distribution Width 17.4 H 11.8-14.3 % Platelet Count 141 140-450 10^3/uL Mean Platelet Volume 8.8 6.9-10.8 fL Neutrophils (%) (Auto) 57.6 37.0-80.0 % Lymphocytes (%) (Auto) 24.4 10.0-50.0 % Monocytes (%) (Auto) 13.2 H 0.0-12.0 % Eosinophils (%) (Auto) 1.3 0.0-7.0 % Basophils (%) (Auto) 3.5 H 0.0-2.0 % Neutrophils # (Auto) 4.4 1.6-8.6 10 ^3/uL Lymphocytes # (Auto) 1.8 0.4-5.4 10 ^3/uL Monocytes # (Auto) 1.0 0-1.3 10 ^3/uL Eosinophils # (Auto) 0.1 0-0.8 10 ^3/uL Basophils # (Auto) 0.3 H 0-0.2 10 ^3/uL Nucleated Red Blood Cells 0.1 % Sodium Level 136 136-145 mmol/L Potassium Level 3.9 3.5-5.1 mmol/L Chloride Level 99 98-107 mmol/L Carbon Dioxide Level 27 20-31 mmol/L Anion Gap 10 5-15 Blood Urea Nitrogen 37 H 9-23 mg/dL Creatinine 1.45 H 0.700-1.30 mg/dL Glomerular Filtration Rate Calc 55 >90 mL/min BUN/Creatinine Ratio 25.5 H 10.0-20.0 Serum Glucose 95 74-106 mg/dL Calcium Level 8.5 L 8.7-10.4 mg/dL Phosphorus Level 4.4 2.4-5.1 mg/dL Magnesium Level 2.2 1.6-2.6 mg/dL Parathyroid Hormone (Intact) 212.3 H 18.4-80.1 pg/mL Urine Color Colorless Yellow Urine Clarity Clear Clear Urine pH 5.5 5.0-9.0 Urine Specific [place] 1.008 1.001-1.035 Urine Protein Negative Negative Urine Ketones Negative Negative Urine Blood Negative Negative /uL Urine Nitrite Negative Negative Urine Bilirubin Negative Negative Urine Urobilinogen Normal Negative mg/dL Urine Leukocyte Esterase Negative Negative /uL Urine RBC 1 0 - 3 /hpf Urine Microscopic WBC 0-3 /HPF Urine Squamous Epithelial Cells None seen <5 /hpf Urine Bacteria None seen None Seen /hpf Urine Glucose Normal Normal mg/dL Total Bilirubin 2.0 H 0.2-1.0 mg/dL Aspartate Amino Transferase (AST) 29 13-40 U/L Alanine Aminotransferase (ALT) 27 7-40 U/L Alkaline Phosphatase 108 46-116 U/L Troponin I High Sensitivity 32 </=54 ng/L B-Type Natriuretic Peptide 2085.02 0-100 pg/mL Total Protein 6.2 5.7-8.2 g/dL Albumin 3.8 3.2-4.8 g/dL Lipase 45 12-53 U/L Microbiology Date/Time Source Procedure Growth Status 06/27/25 15:40 Nose MRSA Screen - Final Complete Assessment 59-year-old male with past medical history of dyslipidemia, hypertension, chronic kidney disease, congestive heart failure and status pacemaker placement, presents for evaluation of shortness for breath. 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 Abebe) * IV Lasix 20 mg t.i.d. * Continue lisinopril, stopped if blood pressure decreased less than 120 * Restrict fluid intake * We will follow up with the patient Thank you for giving us the opportunity to take care of your patient. Please call back if you have any questions/concerns. Plan discussed with: Patient, Other (RN) ANA MARTINEZ Jul 02, 2025 08:34
--- NOTE | 2025-07-02 11:45 | DVHPN2 ---
Subjective The patient is seen and examined at bedside. Complain of shortness of breath. Reviewed: Care Plan, H&P, Labs, Medications, Previous Orders, Radiology Changes from previous H/P or p: No Changes Objective Vitals Vital Signs Date Time Temp Pulse Resp B/P (MAP) Pulse Ox O2 Delivery O2 Flow Rate FiO2 07/02/25 11:34 76 18 95 07/02/25 11:27 Nasal Cannula 6.0 07/02/25 11:27 44 07/02/25 07:57 97.6 117/78 (91) 97.6 Intake/Output Intake and Output 07/02/25 07:00 Intake Total 1600 ml Output Total 1700 ml Balance -100 ml Intake Oral 1600 ml Output Urine Total 1700 ml General Appearance: Alert, Oriented X3, Cooperative, No acute distress HEENT: Atraumatic, PERRLA, EOMI, Mucous membr. moist/pink Neck: Supple Lungs: Clear to auscultation, Normal air movement Cardiovascular: Regular rate, Normal S1, Normal S2, No murmurs, Gallops, Rubs Abdomen: Normal bowel sounds, Soft, No tenderness Neuro: Cranial nerves 3-12 NL Psych/Mental Status: Mental status NL Medications Current Medications Medications Dose Ordered Sig/Justyna Route Start Time Stop Time Status Last Admin Dose Admin Aspirin 81 mg DAILY PO 06/28/25 10:00 07/02/25 09:12 81 MG Atorvastatin Calcium 10 mg HS PO 06/27/25 22:00 07/01/25 21:58 10 MG Carvedilol 3.125 mg Q12HR PO 06/27/25 22:00 07/01/25 21:57 3.125 MG Empaglifozin 10 mg DAILY PO 06/28/25 10:00 07/02/25 09:12 10 MG Lisinopril 5 mg DAILY PO 06/28/25 10:00 Ondansetron HCl 4 mg Q4HP PRN IV 06/27/25 14:15 07/01/25 06:51 4 MG Acetaminophen 650 mg Q6HP PRN PO 06/27/25 14:15 07/02/25 09:19 650 MG Sennosides 17.2 mg DAILY PO 06/29/25 03:30 07/02/25 09:12 17.2 MG Ipratropium [place] 0.5 mg Q6HPRN PRN NEB 06/29/25 15:15 07/02/25 11:27 0.5 MG Albuterol 1.25 mg Q6HPRN PRN NEB 06/29/25 15:15 07/02/25 11:27 1.25 MG Furosemide 20 mg BIDD IV 07/01/25 06:00 07/02/25 05:30 20 MG Laboratory Results Laboratory Tests 07/02/25 06:13 Chemistry Test 07/02/25 06:13 Calcium Level 8.5 mg/dL (8.7-10.4) L Magnesium Level 2.2 mg/dL (1.6-2.6) Phosphorus Level 4.4 mg/dL (2.4-5.1) Urinalysis Test 06/27/25 18:45 Urine Color Colorless (Yellow) Urine Clarity Clear (Clear) Urine pH 5.5 (5.0-9.0) Urine Specific [place] 1.008 (1.001-1.035) Urine Protein Negative (Negative) Urine Ketones Negative (Negative) Urine Blood Negative /uL (Negative) Urine Nitrite Negative (Negative) Urine Bilirubin Negative (Negative) Urine Urobilinogen Normal mg/dL (Negative) Urine Leukocyte Esterase Negative /uL (Negative) Urine RBC 1 /hpf (0 - 3) Urine Microscopic WBC /HPF (0-3) Urine Squamous Epithelial Cells None seen /hpf (<5) Urine Bacteria None seen /hpf (None Seen) Urine Glucose Normal mg/dL (Normal) Microbiology Microbiology Date/Time Source Procedure Growth Status 06/27/25 15:40 Nose MRSA Screen - Final Complete Labs and/or images reviewed: Labs reviewed by me Assessment/Plan Assessment/Plan Acute on chronic systolic congestive heart failure Cardiomyopathy with EF of 10% History of methamphetamine abuse Hypertension Chronic kidney disease stage III Status post pacemaker Abdominal pain with distended probable secondary to edema or third spacing due to congestive heart failure Constipation Acute kidney injury Continuing current management. Continuing with IV Lasix. I will change Lasix to 20 mg IV b.i.d. Nephrology consult Continuing with hypertensive medication. Continuing with Jardiance and Coreg KUB showed: Bowel-gas pattern is nonobstructed. There is moderate intracolonic stool. No pathologic air-fluid levels or evidence of free air. We will give Colace and MiraLax as needed #Addedum: Patient has chest pain today. Will consult social services assistant. EKG done. Also will put on Duoneb today PRN for shortness of breath. This medical document was created using an electronic medical record system with [email or web address] direct computerized dictation system. Although this document has been carefully reviewed, there may still be some phonetic and typographical errors. These areas are purely typographical due to imperfections of the software programs, and do not reflect any compromise in the patient's medical care. Plan discussed with: Patient My Orders Orders - YAS HAUSER MD Procedure Category Date Status Time May Shower RANI 07/01/25 In Process 13:30 Cardiac DIET 07/02/25 Transmitted Diet-2gna,Lofat,Lochol Lunch Date of Service: Jul 02, 2025 Billing Provider: YAS HAUSER MD Common Visit Codes: [id number] INP/OBS CARE(HIGH) YAS HAUSER MD Jul 02, 2025 11:45
--- NOTE | 2025-07-02 13:44 | DVH ---
EXAM: XY CHEST PORTABLE Indication: desaturation Technique: Single frontal view of the chest was obtained Comparison: XY CHEST PORTABLE on DOS: 06/27/25, XY CHEST XRAY 1 VIEW on DOS: 06/21/25, XY CHEST MITZI BLE on DOS: 06/17/25 FINDINGS: Lines and Tubes: Cardiac pacemaker projects over the right distal Lungs: No focal consolidation. Pulmonary vascular congestion Pleura: Trace left pleural effusion. No pneumothorax. Cardiomediastinal contours: Cardiomegaly. Bones: No acute osseous abnormality. IMPRESSION: Cardiomegaly with mild pulmonary vascular congestion and trace left pleural effusion.
[2025-07-02] MEDS: FUROSEMIDE 20 MG/2 ML VIAL IV SCH (16:32)
[2025-07-02] MEDS: TEMAZEPAM 15 MG CAP PO PRN (21:52)
[2025-07-03] VITALS (11 sets, daily range): BP systolic 110–123; BP diastolic 72–101; PULSE 85–102; RESP 18–19; TEMP 97.2–98.1; O2SAT 91–99
[2025-07-03 05:57] LABS: Hematocrit 42.2 % (41.0-53.0); Hemoglobin 13.2 g/dL (13.5-17.5); Mean Corpuscular Hemoglobin 25.4 pg (28.0-32.0); Mean Corpuscular Volume 81.2 fL (80.0-100.0); Nucleated Red Blood Cells % 0.0 %
[2025-07-03 06:15] LABS: Potassium 3.8 mmol/L (3.5-5.1)
[2025-07-03 06:16] LABS: Anion Gap 11 (5-15); Carbon Dioxide 26 mmol/L (20-31)
[2025-07-03 06:19] LABS: Calcium 8.6 mg/dL (8.7-10.4); Chloride 98 mmol/L (98-107); Sodium 135 mmol/L (136-145)
[2025-07-03 06:21] LABS: BUN/Creatinine Ratio 24.0 (10.0-20.0); Blood Urea Nitrogen 37 mg/dL (9-23); Glucose 124 mg/dL (74-106)
--- NOTE | 2025-07-03 10:00 | DVHPN2 ---
Subjective The patient is seen and examined at bedside. Complain of shortness of breath. The patient cough profusely and desat to 80%. Reviewed: Care Plan, H&P, Labs, Medications, Previous Orders, Radiology Changes from previous H/P or p: No Changes Objective Vitals Vital Signs Date Time Temp Pulse Resp B/P (MAP) Pulse Ox O2 Delivery O2 Flow Rate FiO2 07/03/25 09:41 103/72 07/03/25 09:41 89 07/03/25 08:30 98.0 19 91 98.0 07/03/25 06:32 Room Air 0.0 07/03/25 06:32 21 Intake/Output Intake and Output 07/03/25 07:00 Intake Total 1620 ml Output Total 1990 ml Balance -370 ml Intake Oral 1620 ml Output Urine Total 1990 ml # Bowel Movements 2 General Appearance: Alert, Oriented X3, Cooperative, No acute distress HEENT: Atraumatic, PERRLA, EOMI, Mucous membr. moist/pink Neck: Supple Lungs: Clear to auscultation, Normal air movement Cardiovascular: Regular rate, Normal S1, Normal S2, No murmurs, Gallops, Rubs Abdomen: Normal bowel sounds, Soft, No tenderness Neuro: Cranial nerves 3-12 NL Psych/Mental Status: Mental status NL Medications Current Medications Medications Dose Ordered Sig/Justyna Route Start Time Stop Time Status Last Admin Dose Admin Aspirin 81 mg DAILY PO 06/28/25 10:00 07/03/25 09:23 81 MG Atorvastatin Calcium 10 mg HS PO 06/27/25 22:00 07/02/25 21:16 10 MG Carvedilol 3.125 mg Q12HR PO 06/27/25 22:00 07/03/25 09:41 3.125 MG Empaglifozin 10 mg DAILY PO 06/28/25 10:00 07/03/25 09:23 10 MG Lisinopril 5 mg DAILY PO 06/28/25 10:00 07/03/25 09:41 5 MG Ondansetron HCl 4 mg Q4HP PRN IV 06/27/25 14:15 07/01/25 06:51 4 MG Acetaminophen 650 mg Q6HP PRN PO 06/27/25 14:15 07/02/25 09:19 650 MG Sennosides 17.2 mg DAILY PO 06/29/25 03:30 07/03/25 09:23 17.2 MG Ipratropium Left Hand 0.5 mg Q6HPRN PRN NEB 06/29/25 15:15 07/02/25 21:30 0.5 MG Albuterol 1.25 mg Q6HPRN PRN NEB 06/29/25 15:15 07/02/25 21:30 1.25 MG Furosemide 20 mg TID IV 07/02/25 16:14 07/03/25 05:22 20 MG Temazepam 15 mg HSPRN PRN PO 07/02/25 21:30 07/02/25 21:52 15 MG Laboratory Results Laboratory Tests 07/03/25 05:13 Chemistry Test 07/03/25 05:13 Calcium Level 8.6 mg/dL (8.7-10.4) L Urinalysis Test 06/27/25 18:45 Urine Color Colorless (Yellow) Urine Clarity Clear (Clear) Urine pH 5.5 (5.0-9.0) Urine Specific [place] 1.008 (1.001-1.035) Urine Protein Negative (Negative) Urine Ketones Negative (Negative) Urine Blood Negative /uL (Negative) Urine Nitrite Negative (Negative) Urine Bilirubin Negative (Negative) Urine Urobilinogen Normal mg/dL (Negative) Urine Leukocyte Esterase Negative /uL (Negative) Urine RBC 1 /hpf (0 - 3) Urine Microscopic WBC /HPF (0-3) Urine Squamous Epithelial Cells None seen /hpf (<5) Urine Bacteria None seen /hpf (None Seen) Urine Glucose Normal mg/dL (Normal) Microbiology Microbiology Date/Time Source Procedure Growth Status 06/27/25 15:40 Nose MRSA Screen - Final Complete Labs and/or images reviewed: Labs reviewed by me Assessment/Plan Assessment/Plan Acute on chronic systolic congestive heart failure Cardiomyopathy with EF of 10% History of methamphetamine abuse Hypertension Chronic kidney disease stage III Status post pacemaker Abdominal pain with distended probable secondary to edema or third spacing due to congestive heart failure Constipation Acute kidney injury Continuing current management. Continuing with IV Lasix. I will change Lasix to 20 mg IV b.i.d. Nephrology consult Continuing with hypertensive medication. Continuing with Jardiance and Coreg KUB showed: Bowel-gas pattern is nonobstructed. There is moderate intracolonic stool. No pathologic air-fluid levels or evidence of free air. We will give Colace and MiraLax as needed Patient has chest pain yesterday. Fruit Picker Machine Operator consulted. Waiting for Dr Armas see the patient. Continue Duoneb today PRN for shortness of breath. This medical document was created using an electronic medical record system with [employer] acquired by [employer] direct computerized dictation system. Although this document has been carefully reviewed, there may still be some phonetic and typographical errors. These areas are purely typographical due to imperfections of the software programs, and do not reflect any compromise in the patient's medical care. Plan discussed with: Patient My Orders Orders - YAS HAUSER MD Procedure Category Date Status Time Cardiac DIET 07/02/25 Transmitted Diet-2gna,Lofat,Lochol Lunch Chest Portable XY 07/02/25 Resulted 12:25 Respiratory Culture YOVANI 07/02/25 In Process W/ Gs 14:00 Date of Service: Jul 03, 2025 Billing Provider: YAS HAUSER MD Common Visit Codes: [id number] INP/OBS CARE(HIGH) YAS HAUSER MD Jul 03, 2025 10:00
[2025-07-03 11:15] LABS: Protein, Urine < 6.0 mg/dL (1-14)
--- NOTE | 2025-07-03 16:25 | DVHPN2 ---
Progress Note Date Seen: Jul 03, 2025 Resident Creating Document: ANA MARTINEZ RESDIENT Medical Necessity Reason Pt with a Central, PICC or Fol: No Subjective Review of Systems Patient Seen and examined at the patient. Patient is feeling better, but still complaining of shortness of breaths. Objective vital signs Vital Sign Date Time Temp Pulse Resp B/P (MAP) Pulse Ox O2 Delivery O2 Flow Rate FiO2 07/03/25 13:30 98.0 90 18 115/89 (98) 96 98.0 07/03/25 09:49 Oxymizer 4 N/A Total Intake and Output 07/02/25 07/02/25 07/03/25 15:00 23:00 07:00 Intake Total 870 ml 750 ml Output Total 1240 ml 750 ml Balance -370 ml 0 ml medications Current Medications Medications Dose Ordered Sig/Justyna Route Start Time Stop Time Status Last Admin Dose Admin Aspirin 81 mg DAILY PO 06/28/25 10:00 07/03/25 09:23 81 MG Atorvastatin Calcium 10 mg HS PO 06/27/25 22:00 07/02/25 21:16 10 MG Carvedilol 3.125 mg Q12HR PO 06/27/25 22:00 07/03/25 09:41 3.125 MG Empaglifozin 10 mg DAILY PO 06/28/25 10:00 07/03/25 09:23 10 MG Lisinopril 5 mg DAILY PO 06/28/25 10:00 07/03/25 09:41 5 MG Ondansetron HCl 4 mg Q4HP PRN IV 06/27/25 14:15 07/03/25 11:05 4 MG Acetaminophen 650 mg Q6HP PRN PO 06/27/25 14:15 07/02/25 09:19 650 MG Sennosides 17.2 mg DAILY PO 06/29/25 03:30 07/03/25 09:23 17.2 MG Ipratropium [place] 0.5 mg Q6HPRN PRN NEB 06/29/25 15:15 07/02/25 21:30 0.5 MG Albuterol 1.25 mg Q6HPRN PRN NEB 06/29/25 15:15 07/02/25 21:30 1.25 MG Furosemide 20 mg TID IV 07/02/25 16:14 07/03/25 12:44 20 MG Temazepam 15 mg HSPRN PRN PO 07/02/25 21:30 07/02/25 21:52 15 MG Examination General Appearance: Alert, Oriented X3, Cooperative, No acute distress HEENT: Atraumatic, PERRLA, EOMI, Mucous membrane moist/pink Respiratory: Mild bilateral crackles Cardiovascular: Regular rate, Normal S1, Normal S2, No murmurs, no chest wall tenderness Abdominal: Normal bowel sounds, Soft, No tenderness, No hepatospenomegaly, No masses Extremities: Bilateral trace edema Skin: No rashes, No breakdown, No significant lesion Neuro: Normal gait, Normal speech, Strength at 5/5 X4 ext, Normal tone, Sensation intact, Cranial nerves 3-12 NL, Reflexes 2+ Psych/Mental Status: Mental status NL, Mood NL laboratory and microbiology Laboratory Tests 07/03/25 05:13 Test 07/03/25 05:13 Range/Units Serum Glucose 124 H 74-106 mg/dL Microbiology Date/Time Source Procedure Growth Status 07/02/25 13:30 Sputum Expectorated Sputum Gram Stain - Final Resulted 07/02/25 13:30 Sputum Expectorated Sputum Respiratory Culture - Preliminary Resulted 06/27/25 15:40 Nose MRSA Screen - Final Complete Problem List/Assessment/Plan Problem List/Assessment/Plan 59-year-old male with past medical history of dyslipidemia, hypertension, chronic kidney disease, congestive heart failure and status pacemaker placement, presents for evaluation of shortness for breath. 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 Abebe) * IV Lasix 40 mg b.i.d. * Continue lisinopril, stopped if blood pressure decreased less than 120 * Restrict fluid intake * We will follow up with the patient Thank you for giving us the opportunity to take care of your patient. Please call back if you have any questions/concerns. Plan discussed with: Patient, Other (RN) My Orders My Orders Orders - ANA MARTINEZ RESDIADELINE Procedure Category Date Status Time Maintain Fluid RANI 07/03/25 In Process Restrictions 12:49 Dietary Evaluation Review Comments: Nutrition Recommendation 1) Consider cardiac + renal specific 50gm protein diet 2) Monitor PO intake, lab values, weight trend, and I/O Expected Outcomes/Goals: Lab values to improve Fu 3-5 days ANA MARTINEZ Jul 03, 2025 16:25
--- NOTE | 2025-07-03 23:16 | DVHINCON2 ---
Date of service: Jul 03, 2025 Referring Physician Ozzy Rainey Reason for Consultation CHF exacerbation History of Present Illness This is a 59-year-old male with a PMH of Dyslipidemia, hypertension, chronic kidney disease, congestive heart failure who presented to the ED on 06/27 with a complaint of shortness for breath. Patient endorses a two day history of worsening shortness for breath with associated substernal chest pressure. Has also noted bilateral lower extremity swelling. Patient reports being compliant with his Lasix prescription. NA 135, BUN 37, RESIDENTIAL PROGRAM COORDINATOR 1.54, CA 8.6. Chest x-ray showed stable cardiomegaly. No change in position of pacemaker. Slight increase in pulmonary vascular congestion compared to June 21, 2025. Patient was admitted to the hospital. I am asked to consult on this patient. Family History: FH: bladder cancer G8 MOTHER, , Onset:Unknown FH: heart attack G8 FATHER, , Onset:Unknown Allergies: Coded Allergies: Ampicillin (Verified Allergy, Severe, 06/17/25) Home Meds Reported Medications Sacubitril-Valsartan (Entresto 24-26 mg) 1 Tab Tab, 1 TAB PO DAILY, TAB 06/27/25 Empagliflozin (Jardiance) 10 Mg Tab, 10 MG PO DAILY, TAB 06/17/25 Carvedilol (COREG) 3.125 Mg Tab, 3.125 MG OR BID, TAB 06/17/25 Atorvastatin Calcium (Lipitor) 10 Mg Tab, 1 TAB PO QPM, #90 TAB 1 Refill 06/17/25 Aspirin (Aspirin Adult Low Dose) 81 Mg Tab, 1 TAB PO DAILY 06/17/25 Senna (Senna) 8.6 Mg Tab, 2 TAB PO DAILY 06/17/25 Furosemide (Furosemide) 20 Mg Tab, 1 TAB PO DAILY 06/17/25 Discontinued Reported Medications Lisinopril (Lisinopril) 2.5 Mg Tab, 1 TAB PO DAILY, #30 TAB 5 Refills 06/17/25 Current Medications Current Medications Medications (Trade) Dose Ordered Sig/Justyna Route PRN Reason Start Time Stop Time Status Last Admin Temazepam (Restoril) 15 mg HSPRN PRN PO FOR INSOMNIA 07/02/25 21:30 07/02/25 21:52 Review of Systems Constitutional: denies: chills, diaphoresis, fatigue, fever, malaise, sweats, weakness, others EENTM: denies: blurred vision, double vision, ear bleeding, ear discharge, ear drainage, ear pain, ear ringing, eye pain, eye redness, hearing loss, mouth pain, mouth swelling, nasal discharge, nose bleeding, nose congestion, nose pain, photophobia, tearing, throat pain, throat swelling, voice changes, others Respiratory: reports: shortness of breath; denies: cough, hemoptysis, orthopnea, SOB at rest, SOB with excertion, stridor, wheezing, others Cardiovascular: denies: chest pain, dizzy spells, diaphoresis, Dyspnea on exertion, edema, irregular heart beat, left arm pain, lightheadedness, palpitations, PND, syncope, others Gastrointestinal: denies: abdomen distended, abdominal pain, blood streaked bowels, constipated, diarrhea, dysphagia, difficulty swallowing, hematemesis, melena, nausea, poor appetite, poor fluid intake, rectal bleeding, rectal pain, vomiting, others Genitourinary: denies: burning, dysuria, flank pain, frequency, hematuria, incontinence, penile discharge, penile sore, pain, testicle pain, testicle swelling, urgency, others Neurological: denies: dizziness, fainting, headache, left sided numbness, left sided weakness, numbness, paresthesia, pre-existing deficit, right sided numbness, right sided weakness, seizure, speech problems, tingling, tremors, weakness, others Musculoskeletal: denies: back pain, gout, joint pain, joint swelling, muscle pain, muscle stiffness, neck pain, others Integumetry: denies: bruises, change in color, change in hair/nails, dryness, laceration, lesions, lumps, rash, wounds, others Allergic/Immunocompromised: denies: Difficulty Healing, Frequent Infections, Hives, Itching, others Hematologic/Lymphatic: denies: anemia, blood clots, easy bleeding, easy bruising, swollen glands, others Endocrine: denies: excessive hunger, excessive sweating, excessive thirst, excessive urination, flushing, intolerance to cold, intolerance to heat, unexplained weight gain, unexplained weight loss, others Psychiatric: denies: anxiety, bipolar disorder, depression, hopeless, panic disorder, schizophrenia, sleepless, suicidal, others All Other Systems: Reviewed and Negative Vital Signs Vital Signs Date Time Temp Pulse Resp B/P (MAP) Pulse Ox O2 Delivery O2 Flow Rate FiO2 07/03/25 16:56 98.1 85 18 110/73 (85) 95 98.1 07/03/25 09:49 Oxymizer 4 N/A Physical Exam GENERAL: Alert and oriented x 3. No acute distress. EYES: PERRL, EOMI. Anicteric. HENT: Moist mucous membranes. LUNGS: Coarse breath sounds. CARDIOVASCULAR: Regular rate and rhythm. ABDOMEN: Soft, nontender and nondistended. EXTREMITIES: No edema. NEUROLOGIC: No focal neurological deficits. SKIN: Warm, dry. Labs/Diagnostic Data Labs Test 07/03/25 10:24 07/03/25 05:13 07/02/25 06:13 06/27/25 18:45 Range/Units Urine Creatinine 53.99 30.0-125.0 mg/dL Urine Protein/Creatinine Ratio 0.11 Urine Total Protein < 6.0 1-14 mg/dL White Blood Count 7.6 4.4-10.8 10^3/uL Red Blood Count 5.20 4.5-5.90 10^6/uL Hemoglobin 13.2 L 13.5-17.5 g/dL Hematocrit 42.2 41.0-53.0 % Mean Corpuscular Volume 81.2 80.0-100.0 fL Mean Corpuscular Hemoglobin 25.4 L 28.0-32.0 pg Mean Corpuscular Hemoglobin Concent 31.3 L 32.0-36.0 g/dL Red Cell Distribution Width 17.7 H 11.8-14.3 % Platelet Count 151 140-450 10^3/uL Mean Platelet Volume 8.5 6.9-10.8 fL Neutrophils (%) (Auto) 67.4 37.0-80.0 % Lymphocytes (%) (Auto) 17.8 10.0-50.0 % Monocytes (%) (Auto) 12.9 H 0.0-12.0 % Eosinophils (%) (Auto) 0.8 0.0-7.0 % Basophils (%) (Auto) 1.1 0.0-2.0 % Neutrophils # (Auto) 5.1 1.6-8.6 10 ^3/uL Lymphocytes # (Auto) 1.4 0.4-5.4 10 ^3/uL Monocytes # (Auto) 1.0 0-1.3 10 ^3/uL Eosinophils # (Auto) 0.1 0-0.8 10 ^3/uL Basophils # (Auto) 0.1 0-0.2 10 ^3/uL Nucleated Red Blood Cells 0.0 % Sodium Level 135 L 136-145 mmol/L Potassium Level 3.8 3.5-5.1 mmol/L Chloride Level 98 98-107 mmol/L Carbon Dioxide Level 26 20-31 mmol/L Anion Gap 11 5-15 Blood Urea Nitrogen 37 H 9-23 mg/dL Creatinine 1.54 H 0.700-1.30 mg/dL Glomerular Filtration Rate Calc 51 >90 mL/min BUN/Creatinine Ratio 24.0 H 10.0-20.0 Serum Glucose 124 H 74-106 mg/dL Calcium Level 8.6 L 8.7-10.4 mg/dL Phosphorus Level 4.4 2.4-5.1 mg/dL Magnesium Level 2.2 1.6-2.6 mg/dL Parathyroid Hormone (Intact) 212.3 H 18.4-80.1 pg/mL Urine Color Colorless Yellow Urine Clarity Clear Clear Urine pH 5.5 5.0-9.0 Urine Specific [place] 1.008 1.001-1.035 Urine Protein Negative Negative Urine Ketones Negative Negative Urine Blood Negative Negative /uL Urine Nitrite Negative Negative Urine Bilirubin Negative Negative Urine Urobilinogen Normal Negative mg/dL Urine Leukocyte Esterase Negative Negative /uL Urine RBC 1 0 - 3 /hpf Urine Microscopic WBC 0-3 /HPF Urine Squamous Epithelial Cells None seen <5 /hpf Urine Bacteria None seen None Seen /hpf Urine Glucose Normal Normal mg/dL Test 06/27/25 13:13 Range/Units Total Bilirubin 2.0 H 0.2-1.0 mg/dL Aspartate Amino Transferase (AST) 29 13-40 U/L Alanine Aminotransferase (ALT) 27 7-40 U/L Alkaline Phosphatase 108 46-116 U/L Troponin I High Sensitivity 32 </=54 ng/L B-Type Natriuretic Peptide 2085.02 0-100 pg/mL Total Protein 6.2 5.7-8.2 g/dL Albumin 3.8 3.2-4.8 g/dL Lipase 45 12-53 U/L Microbiology Date/Time Source Procedure Growth Status 07/02/25 13:30 Sputum Expectorated Sputum Gram Stain - Final Resulted 07/02/25 13:30 Sputum Expectorated Sputum Respiratory Culture - Preliminary Resulted 06/27/25 15:40 Nose MRSA Screen - Final Complete Assessment Acute on chronic systolic congestive heart failure. Cardiomyopathy with EF of 10%. History of methamphetamine abuse. Hypertension. Chronic kidney disease stage III. Status post pacemaker. Abdominal pain with distended probable secondary to edema or third spacing due to congestive heart failure. Constipation. Acute kidney injury. Plan/Recommendation I agree with your ongoing assessment and care of plan. Telemetry reviewed. Aspirin. Lisinopril. Coreg. Echocardiogram. Diuretics with Lasix. Additional plan as per the hospital course. A total of 45 minutes was spent reviewing the patient record, examining the patient, making a diagnostic and therapeutic plan, discussing this plan with wa dical personnel, following up on diagnostic studies and following the patient for clinical stability excluding any and all procedures. At least 50% of this time was spent in direct, [id number] contact. Plan discussed with: Patient CISCO PRIETO MD Jul 03, 2025 21:16
[2025-07-04] VITALS (8 sets, daily range): BP systolic 92–150; BP diastolic 68–82; PULSE 68–90; RESP 16–18; TEMP 97.7–98.2; O2SAT 94–100
[2025-07-04 08:00] LABS: Hemoglobin 13.7 g/dL (13.5-17.5); Nucleated Red Blood Cells % 0.1 %
[2025-07-04 08:02] LABS: Hematocrit 43.2 % (41.0-53.0); Mean Corpuscular Hemoglobin 25.6 pg (28.0-32.0); Mean Corpuscular Volume 80.6 fL (80.0-100.0)
[2025-07-04 08:06] LABS: Chloride 104 mmol/L (98-107); Potassium 3.9 mmol/L (3.5-5.1); Sodium 141 mmol/L (136-145)
[2025-07-04 08:07] LABS: Anion Gap 10 (5-15); Carbon Dioxide 27 mmol/L (20-31)
[2025-07-04 08:12] LABS: BUN/Creatinine Ratio 21.4 (10.0-20.0); Glucose 105 mg/dL (74-106)
[2025-07-04 08:40] LABS: Blood Urea Nitrogen 34 mg/dL (9-23); Calcium 8.4 mg/dL (8.7-10.4)
--- NOTE | 2025-07-04 10:58 | DVHPN2 ---
Subjective The patient is seen and examined at bedside. Complain of shortness of breath. The patient cough profusely and desat to 80%. Reviewed: Care Plan, H&P, Labs, Medications, Previous Orders, Radiology Objective Vitals Vital Signs Date Time Temp Pulse Resp B/P (MAP) Pulse Ox O2 Delivery O2 Flow Rate FiO2 07/04/25 09:44 92/69 07/04/25 09:43 85 07/04/25 09:07 97.7 16 94 97.7 07/04/25 07:17 Oxymizer 4.0 07/04/25 07:17 N/A Intake/Output Intake and Output 07/04/25 07:00 Intake Total 710 ml Output Total 1775 ml Balance -1065 ml Intake Oral 710 ml Output Urine Total 1775 ml # Voids 3 # Bowel Movements 4 General Appearance: Alert, Oriented X3, Cooperative, No acute distress HEENT: Atraumatic, PERRLA, EOMI, Mucous membr. moist/pink Neck: Supple Lungs: Clear to auscultation, Normal air movement Cardiovascular: Regular rate, Normal S1, Normal S2, No murmurs, Gallops, Rubs Abdomen: Normal bowel sounds, Soft, No tenderness Neuro: Cranial nerves 3-12 NL Psych/Mental Status: Mental status NL Medications Current Medications Medications Dose Ordered Sig/Justyna Route Start Time Stop Time Status Last Admin Dose Admin Aspirin 81 mg DAILY PO 06/28/25 10:00 07/04/25 09:32 81 MG Atorvastatin Calcium 10 mg HS PO 06/27/25 22:00 07/03/25 22:40 10 MG Carvedilol 3.125 mg Q12HR PO 06/27/25 22:00 07/03/25 22:38 3.125 MG Empaglifozin 10 mg DAILY PO 06/28/25 10:00 07/04/25 09:40 10 MG Lisinopril 5 mg DAILY PO 06/28/25 10:00 07/03/25 09:41 5 MG Ondansetron HCl 4 mg Q4HP PRN IV 06/27/25 14:15 07/04/25 05:58 4 MG Acetaminophen 650 mg Q6HP PRN PO 06/27/25 14:15 07/02/25 09:19 650 MG Sennosides 17.2 mg DAILY PO 06/29/25 03:30 07/04/25 09:32 17.2 MG Ipratropium [place] 0.5 mg Q6HPRN PRN NEB 06/29/25 15:15 07/02/25 21:30 0.5 MG Albuterol 1.25 mg Q6HPRN PRN NEB 06/29/25 15:15 07/02/25 21:30 1.25 MG Furosemide 20 mg TID IV 07/02/25 16:14 07/04/25 06:25 20 MG Temazepam 15 mg HSPRN PRN PO 07/02/25 21:30 07/03/25 22:38 15 MG Laboratory Results Laboratory Tests 07/04/25 06:38 Chemistry Test 07/04/25 06:38 Calcium Level 8.4 mg/dL (8.7-10.4) L Urinalysis Test 06/27/25 18:45 07/03/25 10:24 Urine Color Colorless (Yellow) Urine Clarity Clear (Clear) Urine pH 5.5 (5.0-9.0) Urine Specific [place] 1.008 (1.001-1.035) Urine Protein Negative (Negative) Urine Ketones Negative (Negative) Urine Blood Negative /uL (Negative) Urine Nitrite Negative (Negative) Urine Bilirubin Negative (Negative) Urine Urobilinogen Normal mg/dL (Negative) Urine Leukocyte Esterase Negative /uL (Negative) Urine RBC 1 /hpf (0 - 3) Urine Microscopic WBC /HPF (0-3) Urine Squamous Epithelial Cells None seen /hpf (<5) Urine Bacteria None seen /hpf (None Seen) Urine Glucose Normal mg/dL (Normal) Urine Creatinine 53.99 mg/dL (30.0-125.0) Urine Protein/Creatinine Ratio 0.11 Urine Total Protein < 6.0 mg/dL (1-14) Microbiology Microbiology Date/Time Source Procedure Growth Status 07/02/25 13:30 Sputum Expectorated Sputum Gram Stain - Final Resulted 07/02/25 13:30 Sputum Expectorated Sputum Respiratory Culture - Preliminary Resulted 06/27/25 15:40 Nose MRSA Screen - Final Complete Assessment/Plan Assessment/Plan Acute on chronic systolic congestive heart failure Cardiomyopathy with EF of 10% History of methamphetamine abuse Hypertension Chronic kidney disease stage III Status post pacemaker Abdominal pain with distended probable secondary to edema or third spacing due to congestive heart failure Constipation Acute kidney injury Continuing current management. Continuing with IV Lasix. I will change Lasix to 20 mg IV b.i.d. Nephrology consult Continuing with hypertensive medication. Continuing with Jardiance and Coreg KUB showed: Bowel-gas pattern is nonobstructed. There is moderate intracolonic stool. No pathologic air-fluid levels or evidence of free air. We will give Colace and MiraLax as needed Patient has chest pain yesterday. Assistant Controller consulted. Waiting for Dr Armas see the patient. Continue Duoneb today PRN for shortness of breath. This medical document was created using an electronic medical record system with [employer] direct computerized dictation system. Although this document has been carefully reviewed, there may still be some phonetic and typographical errors. These areas are purely typographical due to imperfections of the software programs, and do not reflect any compromise in the patient's medical care. YAS HAUSER MD Jul 04, 2025 10:58
--- NOTE | 2025-07-04 12:21 | DVHDS2 ---
Discharge Summary Date of Admission Jun 27, 2025 at 14:01 Date of Discharge: Jul 04, 2025 Admitting Diagnosis Acute on chronic systolic congestive heart failure Cardiomyopathy with EF of 10% History of methamphetamine abuse Hypertension Chronic kidney disease stage III Status post pacemaker Abdominal pain with distended probable secondary to edema or third spacing due to congestive heart failure Constipation Acute kidney injury Labs/Diagnostic Data: Laboratory Results Test 07/04/25 06:38 07/03/25 10:24 07/02/25 06:13 06/27/25 18:45 White Blood Count 7.6 10^3/uL (4.4-10.8) Red Blood Count 5.36 10^6/uL (4.5-5.90) Hemoglobin 13.7 g/dL (13.5-17.5) Hematocrit 43.2 % (41.0-53.0) Mean Corpuscular Volume 80.6 fL (80.0-100.0) Mean Corpuscular Hemoglobin 25.6 pg (28.0-32.0) Mean Corpuscular Hemoglobin Concent 31.7 g/dL (32.0-36.0) Red Cell Distribution Width 17.3 % (11.8-14.3) Platelet Count 150 10^3/uL (140-450) Mean Platelet Volume 9.1 fL (6.9-10.8) Neutrophils (%) (Auto) 62.8 % (37.0-80.0) Lymphocytes (%) (Auto) 20.6 % (10.0-50.0) Monocytes (%) (Auto) 14.5 % (0.0-12.0) Eosinophils (%) (Auto) 1.2 % (0.0-7.0) Basophils (%) (Auto) 0.9 % (0.0-2.0) Neutrophils # (Auto) 4.8 10 ^3/uL (1.6-8.6) Lymphocytes # (Auto) 1.6 10 ^3/uL (0.4-5.4) Monocytes # (Auto) 1.1 10 ^3/uL (0-1.3) Eosinophils # (Auto) 0.1 10 ^3/uL (0-0.8) Basophils # (Auto) 0.1 10 ^3/uL (0-0.2) Nucleated Red Blood Cells 0.1 % Sodium Level 141 mmol/L (136-145) Potassium Level 3.9 mmol/L (3.5-5.1) Chloride Level 104 mmol/L (98-107) Carbon Dioxide Level 27 mmol/L (20-31) Anion Gap 10 (5-15) Blood Urea Nitrogen 34 mg/dL (9-23) Creatinine 1.59 mg/dL (0.700-1.30) Glomerular Filtration Rate Calc 49 mL/min (>90) BUN/Creatinine Ratio 21.4 (10.0-20.0) Serum Glucose 105 mg/dL (74-106) Calcium Level 8.4 mg/dL (8.7-10.4) Urine Creatinine 53.99 mg/dL (30.0-125.0) Urine Protein/Creatinine Ratio 0.11 Urine Total Protein < 6.0 mg/dL (1-14) Phosphorus Level 4.4 mg/dL (2.4-5.1) Magnesium Level 2.2 mg/dL (1.6-2.6) Parathyroid Hormone (Intact) 212.3 pg/mL (18.4-80.1) Urine Color Colorless (Yellow) Urine Clarity Clear (Clear) Urine pH 5.5 (5.0-9.0) Urine Specific [place] 1.008 (1.001-1.035) Urine Protein Negative (Negative) Urine Ketones Negative (Negative) Urine Blood Negative /uL (Negative) Urine Nitrite Negative (Negative) Urine Bilirubin Negative (Negative) Urine Urobilinogen Normal mg/dL (Negative) Urine Leukocyte Esterase Negative /uL (Negative) Urine RBC 1 /hpf (0 - 3) Urine Microscopic WBC /HPF (0-3) Urine Squamous Epithelial Cells None seen /hpf (<5) Urine Bacteria None seen /hpf (None Seen) Urine Glucose Normal mg/dL (Normal) Test 06/27/25 13:13 Total Bilirubin 2.0 mg/dL (0.2-1.0) Aspartate Amino Transferase (AST) 29 U/L (13-40) Alanine Aminotransferase (ALT) 27 U/L (7-40) Alkaline Phosphatase 108 U/L (46-116) Troponin I High Sensitivity 32 ng/L (</=54) B-Type Natriuretic Peptide 2085.02 pg/mL (0-100) Total Protein 6.2 g/dL (5.7-8.2) Albumin 3.8 g/dL (3.2-4.8) Lipase 45 U/L (12-53) Other Laboratory Tests 07/04/25 06:38 Brief Hx & Hospital Course: This is 59 years old male with past medical history of ischemic cardiomyopathy, systolic congestive heart failure with EF 10%, come to emergency department because of worsening shortness for breath with substernal chest pressure. Patient also had bilateral lower extremity edema. The patient was found to be hypoxic in room air with saturation oxygen around 80%. The patient was admitted. The patient was put on nebulizer and IV Lasix. Cardiology was consulted. Recommend continuing current regimen per home medication. No further intervention from corrosion control fitter's. Subsequently the patient doing well. Patient is back to his baseline oxygen which patient had at home with 2 L of nasal cannula. The patient also found to have acute kidney injury but now resolved. So I am going to discharge him home. Advised the patient to follow up with primary care physician 1-2 weeks. Follow up with corrosion control fitter per schedule. Activity as tolerated. Diet low-salt low-cholesterol diet. Physical exam: HEENT: Normocephalic atraumatic pupils equal react to light and accommodation. Extraocular muscles intact, conjunctiva pink, oropharynx moist, no thrush, no exudate. Lymphatic: No lymphadenopathy Cardiovascular exam: S1, S2 was heard. No murmurs, rubs, gallops Lung: Clear on auscultation bilaterally, no wheeze, rale, rhonchi. GI: Abdominal soft, nondistended, nontenderness, positive bowel sounds. Extremity: No crepitus, cyanosis, edema. Pedal pulses present bilateral. Full range of motion. Skin: Normal turgor, no rash. Psych: Alert, oriented x3. Neurology: No focal deficits, cranial nerve II to XII grossly intact. This medical document was created using an electronic medical record system with [employer] direct computerized dictation system. Although this document has been carefully reviewed, there may still be some phonetic and typographical errors. These areas are purely typographical due to imperfections of the software programs, and do not reflect any compromise in the patient's medical care. Condition at Discharge: Stable Final Diagnosis/Problems List Acute on chronic systolic congestive heart failure Cardiomyopathy with EF of 10% History of methamphetamine abuse Hypertension Chronic kidney disease stage III Status post pacemaker Abdominal pain with distended probable secondary to edema or third spacing due to congestive heart failure Constipation Acute kidney injury Discharge Disposition: Home Discharge Instruct/Medications Scheduled Aspirin (Aspirin Adult Low Dose), 1 TAB PO DAILY, (Reported) Atorvastatin Calcium (Lipitor), 1 TAB PO QPM, (Reported) Carvedilol (Coreg), 3.125 MG OR BID, (Reported) Empagliflozin (Jardiance), 10 MG PO DAILY, (Reported) Furosemide (Furosemide), 1 TAB PO DAILY, (Reported) Lisinopril (Lisinopril), 5 MG PO DAILY Sacubitril-Valsartan (Entresto 24-26 mg), 1 TAB PO DAILY, (Reported) Senna (Senna), 2 TAB PO DAILY, (Reported) Discharge Statement: "Patient was advised to return to the ER or call 911 if any headaches, dizziness, shortness of breath, chest pain, abdominal pain, bleeding, fevers, or worsening of medical condition. Patient was counseled about treatment plan, medications, possible side effects, patientverbalized understanding. All questions were answered to the best of my ability. This discharge took greater then 30 minutes in planning, reviewing documentation, counseling the patient, and discussing with other team members." ASSESSMENT ASSESSMENT Assessment Date of Service: Jul 04, 2025 Billing Provider: YAS HAUSER MD Common Visit Codes: 74436-GLE/OBS DISCH DAY >30min YAS HAUSER MD Jul 04, 2025 12:21
[2025-07-04] MEDS ORDERED: LISI-275 PO (12:22)
--- NOTE | 2025-07-04 16:49 | DVHPN2 ---
Progress Note Date Seen: Jul 04, 2025 Resident Creating Document: ANA MARTINEZ RESDIENT Medical Necessity Reason Pt with a Central, PICC or Fol: No Subjective Review of Systems Patient Seen and examined at the patient. Patient is feeling better, but still complaining of shortness of breaths. Objective vital signs Vital Sign Date Time Temp Pulse Resp B/P (MAP) Pulse Ox O2 Delivery O2 Flow Rate FiO2 07/04/25 13:12 98.2 82 18 96 07/04/25 12:30 143/79 (100) 07/04/25 10:00 Oxymizer 4.0 07/04/25 10:00 N/A Total Intake and Output 07/03/25 07/03/25 07/04/25 15:00 23:00 07:00 Intake Total 580 ml 130 ml Output Total 600 ml 1175 ml Balance -20 ml -1045 ml Examination General Appearance: Alert, Oriented X3, Cooperative, No acute distress HEENT: Atraumatic, PERRLA, EOMI, Mucous membrane moist/pink Respiratory: Mild bilateral crackles Cardiovascular: Regular rate, Normal S1, Normal S2, No murmurs, no chest wall tenderness Abdominal: Normal bowel sounds, Soft, No tenderness, No hepatospenomegaly, No masses Extremities: Bilateral trace edema Skin: No rashes, No breakdown, No significant lesion Neuro: Normal gait, Normal speech, Strength at 5/5 X4 ext, Normal tone, Sensation intact, Cranial nerves 3-12 NL, Reflexes 2+ Psych/Mental Status: Mental status NL, Mood NL laboratory and microbiology Laboratory Tests 07/04/25 06:38 Test 07/04/25 06:38 Range/Units Serum Glucose 105 74-106 mg/dL Microbiology Date/Time Source Procedure Growth Status 07/02/25 13:30 Sputum Expectorated Sputum Gram Stain - Final Resulted 07/02/25 13:30 Sputum Expectorated Sputum Respiratory Culture - Preliminary Resulted 06/27/25 15:40 Nose MRSA Screen - Final Complete Problem List/Assessment/Plan Problem List/Assessment/Plan 59-year-old male with past medical history of dyslipidemia, hypertension, chronic kidney disease, congestive heart failure and status pacemaker placement, presents for evaluation of shortness for breath. 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 Abebe) * Oral Lasix 40 mg b.i.d. * Continue lisinopril, stopped if blood pressure decreased less than 120 * Restrict fluid intake * We sign off the patient Thank you for giving us the opportunity to take care of your patient. Please call back if you have any questions/concerns. Plan discussed with: Patient, Other (RN) Dietary Evaluation Review Comments: Nutrition Recommendation 1) Consider cardiac + renal specific 50gm protein diet 2) Monitor PO intake, lab values, weight trend, and I/O Expected Outcomes/Goals: Lab values to improve Fu 3-5 days ANA MARTINEZ Jul 04, 2025 16:49
--- NOTE | 2025-07-04 18:53 | DVHPN2 ---
Progress Note - Dictate Date Seen: Jul 04, 2025 Medical Necessity Reason Pt with a Central, PICC or Fol: No Subjective Patient was seen and evaluated in follow up. Patient complains of shortness of breath. RN reports when the patient coughs profusely, he desats to 80%. BUN 34, TOWER EQUIPMENT INSTALLER 1.59, CA 8.4. Telemetry reviewed. vital signs Vital Sign Date Time Temp Pulse Resp B/P (MAP) Pulse Ox O2 Delivery O2 Flow Rate FiO2 07/04/25 10:00 96 Oxymizer 4.0 07/04/25 10:00 N/A 07/04/25 09:44 92/69 07/04/25 09:43 85 07/04/25 09:07 97.7 16 97.7 Total Intake and Output 07/03/25 07/03/25 07/04/25 15:00 23:00 07:00 Intake Total 580 ml 130 ml Output Total 600 ml 1175 ml Balance -20 ml -1045 ml medications Current Medications Medications Dose Ordered Sig/Justyna Route Start Time Stop Time Status Last Admin Dose Admin Aspirin 81 mg DAILY PO 06/28/25 10:00 07/04/25 09:32 81 MG Atorvastatin Calcium 10 mg HS PO 06/27/25 22:00 07/03/25 22:40 10 MG Carvedilol 3.125 mg Q12HR PO 06/27/25 22:00 07/03/25 22:38 3.125 MG Empaglifozin 10 mg DAILY PO 06/28/25 10:00 07/04/25 09:40 10 MG Lisinopril 5 mg DAILY PO 06/28/25 10:00 07/03/25 09:41 5 MG Ondansetron HCl 4 mg Q4HP PRN IV 06/27/25 14:15 07/04/25 05:58 4 MG Acetaminophen 650 mg Q6HP PRN PO 06/27/25 14:15 07/02/25 09:19 650 MG Sennosides 17.2 mg DAILY PO 06/29/25 03:30 07/04/25 09:32 17.2 MG Ipratropium [place]ak[place] 0.5 mg Q6HPRN PRN NEB 06/29/25 15:15 07/02/25 21:30 0.5 MG Albuterol 1.25 mg Q6HPRN PRN NEB 06/29/25 15:15 07/02/25 21:30 1.25 MG Furosemide 20 mg TID IV 07/02/25 16:14 07/04/25 06:25 20 MG Temazepam 15 mg HSPRN PRN PO 07/02/25 21:30 07/03/25 22:38 15 MG objective GENERAL: Alert and oriented x 3. No acute distress. EYES: PERRL, EOMI. Anicteric. HENT: Moist mucous membranes. LUNGS: Coarse breath sounds. CARDIOVASCULAR: Regular rate and rhythm. ABDOMEN: Soft, nontender and nondistended. EXTREMITIES: No edema. NEUROLOGIC: No focal neurological deficits. SKIN: Warm, dry. laboratory and microbiology Laboratory Tests 07/04/25 06:38 Test 07/04/25 06:38 Range/Units Serum Glucose 105 74-106 mg/dL Problem List Acute on chronic systolic congestive heart failure. Cardiomyopathy with EF of 10%. History of methamphetamine abuse. Hypertension. Chronic kidney disease stage III. Status post pacemaker. Abdominal pain with distended probable secondary to edema or third spacing due to congestive heart failure. Constipation. Acute kidney injury. Assessment/Plan Continued all current supportive medical care. Aspirin. Diuretics with Lasix. Echocardiogram. Additional plan as per the hospital course. Dietary Evaluation Review Comments: Nutrition Recommendation 1) Consider cardiac + renal specific 50gm protein diet 2) Monitor PO intake, lab values, weight trend, and I/O Expected Outcomes/Goals: Lab values to improve Fu 3-5 days Plan discussed with: Patient CISCO PRIETO MD Jul 04, 2025 12:41
== END 2025-07-04 15:25 | disposition home or self-care (01) | DRG 133 ==
LOC: ER 12:17 → EDBD 12:17 → OVERFLOW 14:01 → CENTRAL 15:51 → TELE-CENTR 06-28 13:08
PROVIDERS: ADMIT Internal Medicine; ATTEND Internal Medicine
DX: J96.01 Acute respiratory failure with hypoxia (principal); N17.0 Acute kidney failure with tubular necrosis; I50.23 Acute on chronic systolic (congestive) heart failure; I13.0 Hypertensive heart and chronic kidney disease with heart failure and stage 1 through stage 4 chronic kidney disease, or unspecified chronic kidney disease; N18.9 Chronic kidney disease, unspecified; K59.00 Constipation, unspecified; N18.30 Chronic kidney disease, stage 3 unspecified; E78.5 Hyperlipidemia, unspecified; Z95.0 Presence of cardiac pacemaker; Z88.0 Allergy status to penicillin; Z82.49 Family history of ischemic heart disease and other diseases of the circulatory system; Z80.52 Family history of malignant neoplasm of bladder; Z79.82 Long term (current) use of aspirin; Z79.899 Other long term (current) drug therapy; I25.5 Ischemic cardiomyopathy
CPT/HCPCS: 36415; 71045; 74018; 76775; 80048; 80053; 81001; 82570; 83690; 83735; 83880; 83970; 84100; 84156; 84484; 85025; 87070; 87081; 87205; 93005; 94640; 99291; 99292; G0378; J2405

== ENCOUNTER 2025-07-19 10:10 | Emergency (ER) | payer MEDICAID ==
[~2025-07-19] VITALS: Ht 182.9 cm; Wt 81.8 kg
[~2025-07-19 10:10] MED LIST changes: +LISI-275 PO; -LISI2.5T47 PO; +SACU1TAB PO
[2025-07-19] MEDS: SODIUM CHLORIDE 0.9% 1,000 ML IV ONE (11:15)
--- NOTE | 2025-07-19 11:42 | ED.PDOC ---
GI ASSESSMENT HPI Comments 59/M BIBA w/ prior MHx of CHF, CKF Stage 3, Gallstones, High Lipids, HTN, Hepatitis C:SHx of Pacemaker, Mitral Valve Clip, Right Knee Sx and the c/c of ABD pain. Pt reports on having LLQ/Epigastric pain for the past 3 months and was recently D/C from [facility] on 07/11/25 for ABD Pain. PT reports on having sharp epigastric/LLQ pain which started up again this morning.Pt notes on having a cough associated w/ yellow phlegm for the past 2 days. Denies any other symptoms at this time. Denies chills, fever, N/V/D, SOB, CP. Denies any other associated symptom's, modifiers, or recent injuries or sick contact at this time. Chief Complaint: Abdominal Pain Time Seen by MD: 11:40 Reviewed Notes: Nurses Notes, Medications, Allergies Allergies: Coded Allergies: Ampicillin (Verified Allergy, Severe, 06/17/25) Home Meds Active Scripts Lisinopril (Lisinopril) 5 Mg Tab, 5 MG PO DAILY, #30 TAB 5 Refills Prov:YAS HAUSER MD 07/04/25 Reported Medications Sacubitril-Valsartan (Entresto 24-26 mg) 1 Tab Tab, 1 TAB PO DAILY, TAB 06/27/25 Empagliflozin (Jardiance) 10 Mg Tab, 10 MG PO DAILY, TAB 06/17/25 Carvedilol (COREG) 3.125 Mg Tab, 3.125 MG OR BID, TAB 06/17/25 Atorvastatin Calcium (Lipitor) 10 Mg Tab, 1 TAB PO QPM, #90 TAB 1 Refill 06/17/25 Aspirin (Aspirin Adult Low Dose) 81 Mg Tab, 1 TAB PO DAILY 06/17/25 Senna (Senna) 8.6 Mg Tab, 2 TAB PO DAILY 06/17/25 Furosemide (Furosemide) 20 Mg Tab, 1 TAB PO DAILY 06/17/25 Information Source: Patient Mode of Arrival: EMS Timing: Months Duration: Since onset Prehospital treatment: None Quality: Sharp Vomitus: None Stool: Normal Severity: Moderate Recent: None Recent Hx of: None Pain Location: Epigastric, LLQ Associated sign and symptoms: Abdominal Pain Past Medical History PAST MEDICAL HISTORY: CHF, CKF (Stage 3), Gallstones, High Lipids, HTN Past Medical History (Other): Hepatitis C Surgical History: Pacemaker Surgical History (Other): Mitral Valve Clip, Right Knee Sx Family History Family History: Reviewed,noncontributory to illness, Unknown Social History Smoker: Non-Smoker Alcohol: Denies ETOH Use Drugs: Denies Drug Use Lives In: Home Constitutional: denies: chills, diaphoresis, fatigue, fever, malaise, sweats, weakness, others EENTM: denies: blurred vision, double vision, ear bleeding, ear discharge, ear drainage, ear pain, ear ringing, eye pain, eye redness, hearing loss, mouth pain, mouth swelling, nasal discharge, nose bleeding, nose congestion, nose pa in, photophobia, tearing, throat pain, throat swelling, voice changes, others Respiratory: reports: cough; denies: hemoptysis, orthopnea, SOB at rest, shortness of breath, SOB with excertion, stridor, wheezing, others Cardiovascular: denies: chest pain, dizzy spells, diaphoresis, Dyspnea on exertion, edema, irregular heart beat, left arm pain, lightheadedness, palpitations, PND, syncope, others Gastrointestinal: reports: abdominal pain; denies: abdomen distended, blood streaked bowels, constipated, diarrhea, dysphagia, difficulty swallowing, hematemesis, melena, nausea, poor appetite, poor fluid intake, rectal bleeding, rectal pain, vomiting, others Genitourinary: denies: burning, dysuria, flank pain, frequency, hematuria, incontinence, penile discharge, penile sore, pain, testicle pain, testicle swelling, urgency, others Neurological: denies: dizziness, fainting, headache, left sided numbness, left sided weakness, numbness, paresthesia, pre-existing deficit, right sided numbness, right sided weakness, seizure, speech problems, tingling, tremors, weakness, others Musculoskeletal: denies: back pain, gout, joint pain, joint swelling, muscle pain, muscle stiffness, neck pain, others Integumetry: denies: bruises, change in color, change in hair/nails, dryness, laceration, lesions, lumps, rash, wounds, others Allergic/Immunocompromised: denies: Difficulty Healing, Frequent Infections, Hives, Itching, others Hematologic/Lymphatic: denies: anemia, blood clots, easy bleeding, easy bruising, swollen glands, others Endocrine: denies: excessive hunger, excessive sweating, excessive thirst, excessive urination, flushing, intolerance to cold, intolerance to heat, unexplained weight gain, unexplained weight loss, others Psychiatric: denies: anxiety, bipolar disorder, depression, hopeless, panic disorder, schizophrenia, sleepless, suicidal, others All Other Systems: Reviewed and Negative Physical Exam General Appearance: Mild Distress, Normal HEENT: Normal ENT Inspection, PERRL/EOMI, Pharynx Normal, TMs Normal Neck: Full Range of Motion, Non-Tender, Normal, Normal Inspection Respiratory: Chest Non-Tender, Crackles, Decreased Breath Sounds, Expiration, Inspiration, No Accessory Muscle Use, No Respiratory Distress Cardiovascular: No Edema, No JVD, None, No Gallop, Normal Peripheral Pulses, Regular Rate/Rhythm, Systolic Murmur Breast Exam: Deferred Gastrointestinal: Epigastric, No Organomegaly, No Pulsatile Mass, Normal Bowel Sounds, Soft, Tenderness Genitalia: Deferred Pelvic: Deferred Rectal: Deferred Extremities: No calf tenderness, Normal capillary refill, Normal inspection, Normal range of motion, Non-tender, No pedal edema Musculoskeletal : Apperance: Normal Neurologic: Alert, golf ball marker II-XII nml as Tested, No Motor Deficits, Normal Affect, Normal Mood, No Sensory Deficits Cerebellar Function: Normal Reflexes: Normal Skin: Dry, Normal Color, Warm Peripheral Pulses: 1+ carotid (R), 1+ carotid (L) Lymphatic: No Adenopathy Was a procedure done? Was a procedure done?: No GI differential Dx Differential Diagnosis: Gastritis/PUD, Gastroenteritis, Hepatitis, Inflammatory BD, Pancreatitis, Dehydration, Diabetes/ DKA, Electrolyte Imbalance, Hypovol emia, Renal Failure X-Ray, Labs, Meds, VS Vital Signs Date Time Temp Pulse Resp B/P (MAP) Pulse Ox O2 Delivery O2 Flow Rate FiO2 07/19/25 18:31 98.6 109 16 115/95 (102) 97 98.6 07/19/25 14:09 97.6 104 16 115/88 (97) 98 97.6 07/19/25 10:15 97.6 97 18 122/93 98 97.6 Lab Test 07/19/25 15:06 07/19/25 11:29 Range/Units Urine Color Yellow Yellow Urine Clarity Clear Clear Urine pH 5.5 5.0-9.0 Urine Specific [place] 1.020 1.001-1.035 Urine Protein 1+ H Negative Urine Ketones Negative Negative Urine Blood Negative Negative /uL Urine Nitrite Negative Negative Urine Bilirubin Negative Negative Urine Urobilinogen Normal Negative mg/dL Urine Leukocyte Esterase Negative Negative /uL Urine RBC 2 0 - 3 /hpf Urine Microscopic WBC 1 0-3 /HPF Urine Squamous Epithelial Cells None seen <5 /hpf Urine Bacteria None seen None Seen /hpf Urine Mucus Few None Seen Urine Glucose 4+ H Normal mg/dL White Blood Count 7.9 4.4-10.8 10^3/uL Red Blood Count 6.13 H 4.5-5.90 10^6/uL Hemoglobin 15.3 13.5-17.5 g/dL Hematocrit 49.0 41.0-53.0 % Mean Corpuscular Volume 79.9 L 80.0-100.0 fL Mean Corpuscular Hemoglobin 25.0 L 28.0-32.0 pg Mean Corpuscular Hemoglobin Concent 31.3 L 32.0-36.0 g/dL Red Cell Distribution Width 18.0 H 11.8-14.3 % Platelet Count 184 140-450 10^3/uL Mean Platelet Volume 8.3 6.9-10.8 fL Neutrophils (%) (Auto) 72.3 37.0-80.0 % Lymphocytes (%) (Auto) 15.0 10.0-50.0 % Monocytes (%) (Auto) 11.3 0.0-12.0 % Eosinophils (%) (Auto) 0.8 0.0-7.0 % Basophils (%) (Auto) 0.6 0.0-2.0 % Neutrophils # (Auto) 5.7 1.6-8.6 10 ^3/uL Lymphocytes # (Auto) 1.2 0.4-5.4 10 ^3/uL Monocytes # (Auto) 0.9 0-1.3 10 ^3/uL Eosinophils # (Auto) 0.1 0-0.8 10 ^3/uL Basophils # (Auto) 0 0-0.2 10 ^3/uL Nucleated Red Blood Cells 0.1 % Sodium Level 141 136-145 mmol/L Potassium Level 4.6 3.5-5.1 mmol/L Chloride Level 105 98-107 mmol/L Carbon Dioxide Level 27 20-31 mmol/L Anion Gap 9 5-15 Blood Urea Nitrogen 24 H 9-23 mg/dL Creatinine 1.22 0.700-1.30 mg/dL Glomerular Filtration Rate Calc 68 >90 mL/min BUN/Creatinine Ratio 19.7 10.0-20.0 Serum Glucose 94 74-106 mg/dL Calcium Level 9.7 8.7-10.4 mg/dL Magnesium Level 2.2 1.6-2.6 mg/dL Total Bilirubin 3.4 H 0.2-1.0 mg/dL Aspartate Amino Transferase (AST) 35 13-40 U/L Alanine Aminotransferase (ALT) 28 7-40 U/L Alkaline Phosphatase 133 H 46-116 U/L Total Protein 7.4 5.7-8.2 g/dL Albumin 4.4 3.2-4.8 g/dL Lipase 59 H 12-53 U/L Current Medications Medications (Trade) Dose Ordered Sig/Justyna Route Start Time Stop Time Status Last Admin Sodium Chloride 500 ml @ 500 mls/hr Q1H ONCE IVB 07/19/25 11:15 07/19/25 12:14 DC 07/19/25 14:56 Sodium Chloride 1,000 ml @ 150 mls/hr Q6H40M ONCE IV 07/19/25 11:15 07/19/25 17:54 DC 07/19/25 11:15 X-Ray, Labs, Meds, VS Comment Course in the emergency department eventful patient came in complaining of epigastric pain was just discharged week ago from [place] with a diagnosis of hepatitis C Chest x-ray shows bilateral airspace disease has AICD and a mitral clip CBC shows microcytosis CMP normal Magnesium 2.2 Total bilirubin elevated at 3.4 Lipase 59 Ultrasound gallbladder shows hepatic steatosis no cholecystitis Patient also has a history of hypertension CHF and diabetes Patient will be discharged to follow up with his PCP Time of 1ST Reevaluation: 12:10 Reevaluation 1ST: Unchanged Patient Education/Counseling: Diagnosis, Treatment, Prognosis Family Education/Counseling: Diagnosis, Treatment, Prognosis, No Family Present SEPSIS Sepsis Screen Date sepsis recognized/suspect: Jul 19, 2025 Time Sepsis recognized/suspect: 1015 Recent Procedure: No On Antibiotic Therapy: No Respiratory Rate >20: No Heart Rate >90: No Temp<36 C (96.8 F) or >38.3 C: No SBP <90 or MAP <65 mmHG: No New Acute Mental Status Change: No Is the patient on CPAP, BIPAP,: No Physician Orders Heplock Iv (07/19/25 11:15) Blood Pressure (07/19/25 11:15) Chest Two Views Routine (07/19/25 11:15) Gallbladder (07/19/25 16:54) Vital Signs Date Time Temp Pulse Resp B/P (MAP) Pulse Ox O2 Delivery O2 Flow Rate FiO2 07/19/25 18:31 98.6 109 16 115/95 (102) 97 98.6 07/19/25 14:09 97.6 104 16 115/88 (97) 98 97.6 07/19/25 10:15 97.6 97 18 122/93 98 97.6 Laboratory Tests Test 07/19/25 11:29 White Blood Count 7.9 10^3/uL (4.4-10.8) Medications Medications Dose Ordered Sig/Justyna Route Start Time Stop Time Status Last Admin Dose Admin Sodium Chloride 500 ml @ 500 mls/hr Q1H ONCE IVB 07/19/25 11:15 07/19/25 12:14 DC 07/19/25 14:56 Sodium Chloride 1,000 ml @ 150 mls/hr Q6H40M ONCE IV 07/19/25 11:15 07/19/25 17:54 DC 07/19/25 11:15 Departure 1 Departure Time of Disposition: 19:42 Impression: Primary Impression: Acute abdominal pain Additional Impressions: Elevated lipase Hyperbilirubinemia Opacities of both lungs present on chest x-ray Automatic implantable cardioverter-defibrillator in situ History of mitral valve repair Disposition: 01 HOME / SELF CARE / HOMELESS Condition: Fair Additional Instructions: Follow up with your PCP and your oracle distribution consultant and your sales estimator e-Prescriptions Promethazine HCl (Promethazine Hydrochlorid) 6.25 Mg/5 Ml Teressa 12.5 MG PO TID for 10 Days, #300 ML Prov: LORETTA GAINES MD 07/19/25 Cefdinir (Cefdinir) 300 Mg Cap 1 CAP PO BID for 10 Days, #20 CAP Prov: LORETTA GAINES MD 07/19/25 Discharged With: Self Critical Care Note Critical Care Time?: No Stability Stability form required: No Heart Score Heart Score: Heart Score Response (Comments) Value History N/A 0 EKG N/A 0 Age 45-64 1 Risk Factors >3 or Hx ASHD 2 Troponin N/A 0 Total 3 I personally scribed for LORETTA GAINES MD ([email or web address]) on 07/19/25 at 11:42. Electronically submitted by Raciel Nichols ([email or web address]). LORETTA GAINES MD Jul 19, 2025 11:42
[2025-07-19 11:57] LABS: Hemoglobin 15.3 g/dL (13.5-17.5); Mean Corpuscular Volume 79.9 fL (80.0-100.0); Nucleated Red Blood Cells % 0.1 %
[2025-07-19 11:59] LABS: Hematocrit 49.0 % (41.0-53.0); Mean Corpuscular Hemoglobin 25.0 pg (28.0-32.0)
--- NOTE | 2025-07-19 12:00 | DVH ---
XY CHEST TWO VIEWS ROUTINE CLINICAL HISTORY: Cough with a green sputum COMPARISON: None TECHNIQUE: Frontal and lateral view of the chest was obtained FINDINGS: Lines and Tubes: Pacemaker in place unchanged from 07/02/2025. Mitral valve clip visualized. Unchanged. Lungs: Questionable developing infiltrates mid lung velazquez bilaterally. Pleura: No effusion. No pneumothorax. Cardiomediastinal contours: Unremarkable Bones: No acute osseous abnormality. IMPRESSION: 1. Possible developing airspace disease mid lung velazquez bilaterally.
[2025-07-19 12:19] LABS: Alanine Aminotransferase 28 U/L (7-40); Albumin 4.4 g/dL (3.2-4.8); Anion Gap 9 (5-15); BUN/Creatinine Ratio 19.7 (10.0-20.0); Calcium 9.7 mg/dL (8.7-10.4); Carbon Dioxide 27 mmol/L (20-31); Chloride 105 mmol/L (98-107); Glucose 94 mg/dL (74-106); Magnesium 2.2 mg/dL (1.6-2.6); Potassium 4.6 mmol/L (3.5-5.1); Sodium 141 mmol/L (136-145); Total Protein 7.4 g/dL (5.7-8.2)
[2025-07-19 12:22] LABS: Alkaline Phosphatase 133 U/L (46-116); Bilirubin, Total 3.4 mg/dL (0.2-1.0); Blood Urea Nitrogen 24 mg/dL (9-23); Lipase 59 U/L (12-53)
[2025-07-19] MEDS: SODIUM CHLORIDE 0.9% 500 ML IVB ONE (14:56)
[2025-07-19] MEDS: METOCLOPRAMIDE HCL 5MG/ml INJ 2ml VIAL IV ONE (14:57)
--- NOTE | 2025-07-19 17:44 | DVH ---
ABDOMINAL ULTRASOUND CLINICAL HISTORY: Epigastric pain elevated bilirubin and elevated lipase TECHNIQUE: Multiple grayscale and color Doppler ultrasound images were obtained of the abdomen. WID: COMPARISON: US GALLBLADDER on DOS: 06/17/25 FINDINGS: Liver and Biliary System: Increased size, Increased echogenicity measuring T1 cm. No focal hepatic observations. No intrahepatic bile duct dilatation. The common duct is not visualized. The gallbladder is normal caliber without wall thickening or cholelithiasis. Sonographic Watkins's sign is negative. The wall measures 2.2 mm. Pancreas: Visualized portions are grossly unremarkable. Kidneys: The right kidney is 10.7 cm and the left kidney is 11.8 cm. Mild Increased echogenicity of the bilateral kidneys. No hydronephrosis. IMPRESSION: 1. Mild hepatomegaly with mild hepatic steatosis. 2. No acute cholecystitis or biliary ductal dilatation.
[2025-07-19 18:31] VITALS: BP 115/95; PULSE 109; RESP 16; TEMP 98.6; O2SAT 97
[2025-07-19 18:47] LABS: Urine Protein, UAD 1+ (Negative)
[2025-07-19] MEDS ORDERED: CEFD300C2 PO (19:49)
[2025-07-19] MEDS ORDERED: PROM5SOL PO (19:49)
== END 2025-07-19 20:27 | disposition left against medical advice (07) ==
LOC: EDBD 10:10 → EDUNIT# 10:10 → ER 10:10
DX: K76.0 Fatty (change of) liver, not elsewhere classified (principal); R10.13 Epigastric pain; Z79.82 Long term (current) use of aspirin; Z79.84 Long term (current) use of oral hypoglycemic drugs; Z79.899 Other long term (current) drug therapy; Z86.19 Personal history of other infectious and parasitic diseases; Z88.0 Allergy status to penicillin; Z95.810 Presence of automatic (implantable) cardiac defibrillator
CPT/HCPCS: 36415; 71046; 76705; 80053; 81001; 83690; 83735; 85025; 96360; 96361; 99284; J7030; J7040